=== PATIENT | male | born 1975 | race Caucasian/White ===

== ENCOUNTER 2019-01-07 09:55 | Emergency (ER) | payer OTHER, SELFPAY ==
[2019-01-07] VITALS (23 sets, daily range): BP systolic 121–151; BP diastolic 79–94; PULSE 83–95; RESP 11–18; TEMP 36.6; O2SAT 94–100
--- NOTE | 2019-01-07 09:58 | W.ED.GENAD ---
Discharge Plan Disposition Patient Disposition: HOME Condition: Good Discharge Details Chief Complaint: Chest Pain Clinical Impression: Acute epigastric pain, GERD without esophagitis Primary Care Provider: Ez Styles ED Provider: Mookie Lim Home Meds and New Rx's Prescriptions: New pantoprazole [Protonix] 40 mg tablet,delayed release (DR/EC) 40 mg PO DAILY Qty: 90 RF: 0 ranitidine HCl 150 mg tablet 150 mg PO DAILY Qty: 90 RF: 0 No Action acetaminophen [Tylenol] 325 MG tablet 1 tab PO PRN PRNRF: 0 lisinopril 2.5 MG tablet 1 tab PO DAILY RF: 0 Discharge Instructions Instructions: Gastroesophageal Reflux Disease (ED) Additional Instructions: Please avoid any tomato-based products, citrus-based products, or spicy foods. Please take the medication as directed if you notice any worsening of your symptoms, or any new symptoms such as vomiting, diarrhea, fever, chills, shortness of breath, chest pain, numbness, weakness, or fainting , please return immediately to the emergency department for reevaluation. Please follow up with your primary care provider as soon as possible for reassessment and reevaluation. As always, it was a pleasure participating in your medical care today. . Referrals: Ez Styles [Primary Care Provider] - Discharge Data Discharge Date/Time-TO BE ENTERED AT DEPARTURE: 01/07/19 12:05 Medical Decision Making This is a 43-year-old male with past medical history of mild reflux, who presents today for evaluation of left upper quadrant epigastric pain. Present since this morning. She tends to be no correlation with an exertional component, no pleuritic chest pain, no concerning red flags of radiation to the arms neck or shoulders. He has no actual chest pain either. He describes it as a burning sensation in his chest. Physical exam demonstrates minimal left upper quadrant reproducible tenderness. EKG is benign with no significant abnormalities. Patient was given a GI cocktail and had nearly almost immediate relief with the GI cocktail. With normal x-ray, normal troponin EKG, and otherwise benign workup, I feel the symptoms are clinically consistent with mild gastritis and reflux, and clinically inconsistent at this time with ACS. With no other clinical sign of life-threatening etiology at this time I feel he can be safely discharged home. We will start him on antacid medications at home. We discussed the importance of diet change. I have extensively reviewed the treatment plan and discharge instructions with the patient. I have addressed all patient concerns at this time. The patient was made aware of what symptoms to monitor for that would warrant a return to the emergency department. Discussed the plan with the patient, they demonstrate verbal understanding and agreement with our assessment and plan at this time. EKG 9: 56 Rate 93, intervals normal, sinus rhythm, inverted T wave in V1, no significant ST elevations or depressions, no Q waves, no evidence of STEMI. No epsilon or delta wave. Questionable RSR in V1. PA AND LATERAL CHEST: The heart is normal in size. The lungs are clear. The mediastinal structures and pleura appear intact. CONCLUSION: Normal chest. Ordered By: Mookie Lim DO CC: [facility] General Date/Time Provider Initiated Documentation: 01/07/19 09:57. HPI Narrative: This is a 43-year-old male with past medical history of hypertension, and reflux who presents today for evaluation of left upper epigastric pain. Patient states that the last day he has had mild burning in his left upper epigastrium, slightly worse with lifting moving, he denies any associated radiation to his chest, arms neck or shoulder. He did have chicken last night, and has been eating an increased amount of tomato-based products as of late. He denies any exertional component. He denies any vomiting or diarrhea. He denies any fever or chills. He denies any shortness of breath. He does have a familial cardiac history at older ages, he denies any tobacco abuse. He has no other complaints at this time. No other modifying factors. Related Data Home Medications Medication Instructions Recorded Confirmed acetaminophen [Tylenol] 1 tab PO PRN PRN 08/06/13 08/06/13 lisinopril 1 tab PO DAILY 08/06/13 08/06/13 pantoprazole [Protonix] 40 mg PO DAILY #90 tab 01/07/19 ranitidine HCl 150 mg PO DAILY #90 tab 01/07/19 Previous Rx's Medication Instructions Recorded pantoprazole [Protonix] 40 mg PO DAILY #90 tab 01/07/19 ranitidine HCl 150 mg PO DAILY #90 tab 01/07/19 Allergies Allergy/AdvReac Type Severity Reaction Status Date / Time Penicillins Allergy Intermediate Skin Rash Unverified 08/06/13 15:17 Sulfa (Sulfonamide Allergy Intermediate Skin Rash Unverified 08/06/13 15:17 Antibiotics) Review of Systems Review of Systems All systems reviewed & are unremarkable except as noted in HPI and below PFSH Social History Smoking/Tobacco Use Status: Never Drug use: Never Do you feel safe at home: Yes Do you feel safe in your relationship?: Yes Exam Narrative Exam Narrative: 1.Const: Well-nourished, Well-developed, appearing stated age 2.Eyes: PERRL, no conjunctival injection, and symmetrical lids. 3.ENT: Atraumatic external nose and ears. Moist MM. Neck: Symmetric, trachea midline, No thyromegaly. 4.CVS: +S1/S2, No murmurs or gallops. Peripheral pulses 2+ and equal in all extremities. Brisk capillary refill in all extremities. 5.RESP: Unlabored respiratory effort. Clear to auscultation bilaterally. No wheezes rales or rhonchi 6.GI: Soft, Nontender/Nondistended, No hepatosplenomegaly. No guarding or rebound. Mild reproducible left upper quadrant tenderness on palpation. 7.MSK: Normocephalic/Atraumatic, Extremities w/o deformity or ttp No cyanosis or clubbing, Normal movement of all extremities. Capillary refill, +2 pulses bilaterally. 8.Skin: Warm, Dry. No rashes or lesions. 9.Neuro: medical assistant cardiology II-XII grossly intact. Sensation grossly intact, no focal neurologic deficits. 10.Psych: (AAO) x3. Appropriate mood and affect
[2019-01-07] MEDS: Acetaminophen 500 MG TAB 1000 MG PO (10:09)
[2019-01-07] MEDS: Sucralfate 1 GM TAB PO (10:09)
[2019-01-07] MEDS: Normal Saline 1,000 ML 1000 ML IV (10:10)
[2019-01-07 10:13] LABS: Abs Immature Grans 0.02 k/cumm (0.0-0.09); Absolute Basophil Count 0.06 k/cumm (0.0-0.2); Absolute Eosinophil Count 0.39 k/cumm (0.0-0.7); Absolute Lymphocyte Count 2.61 k/cumm (1.2-3.4); Absolute Monocyte Count 0.83 k/cumm (0.11-0.7); Absolute Neutrophil Count 5.73 k/cumm (1.2-6.7); Basophils % 0.6; HCT 44.2 % (40.0-50.0); HGB 14.1 g/dL (13.5-17.5); Immature Grans % 0.2; Lymphocytes % 27.1; Mean Corp. HGB Concentration 31.9 g/dL (32.0-36.0); Mean Corpuscular Hemoglobin 29.7 pg (27.0-33.0); Mean Corpuscular Volume 93.1 fL (80-95); Mean Platelet Volume 12.5 fL (8.0-11.0); Monocytes % 8.6; Neutrophils % 59.5; Platelet Count 172 x1000/uL (130-400); RBC 4.75 m/cumm (4.50-6.00); RBC Distribution Width 14.4 % (11.8-14.1); White Blood Cell Count 9.64 k/cumm (4.4-10.8)
--- NOTE | 2019-01-07 10:26 | DI.RAD_ITS ---
SYMPTOMS/DIAGNOSIS: LUQ CHEST PAIN PA AND LATERAL CHEST: The heart is normal in size. The lungs are clear. The mediastinal structures and pleura appear intact. CONCLUSION: Normal chest.
[2019-01-07 10:27] LABS: ALT 30 U/L (12-78); AST 35 U/L (15-37); Albumin 3.8 g/dL (3.4-5.0); Alkaline Phosphatase 116 U/L (46-116); Anion Gap 7.6 mmol/L (3-11); BUN 15 mg/dL (7-18); Bilirubin, Total 1.3 mg/dL (0.2-1.0); CO2 31.4 mmol/L (21.0-32.0); Calcium 8.7 mg/dL (8.5-10.1); Chloride 100 mmol/L (98-107); Glucose 126 mg/dL (70-100); Lipase 107 U/L (73-393); Potassium 3.7 mmol/L (3.5-5.1); Sodium 139 mmol/L (136-145)
[2019-01-07 10:32] LABS: Troponin I < 0.02 ng/mL (0.00-0.06)
== END 2019-01-07 12:05 | disposition home or self-care (01) ==
PROVIDERS: Emergency Provider Student in an Organized Health Care Education/Training Program; PCP Family Medicine
DX: R10.13 Epigastric pain (principal); K21.9 Gastro-esophageal reflux disease without esophagitis
CPT/HCPCS: 36415; 80053; 83690; 93005; 96360; 99285; 71046; 84484; 85025; 93010

== ENCOUNTER 2019-06-29 09:22 | Emergency (ER) | payer OTHER, SELFPAY ==
[2019-06-29 09:26] VITALS: BP 156/80; PULSE 98; RESP 16; TEMP 37; O2SAT 97
--- NOTE | 2019-06-29 09:37 | ED.GENADUL_ITS ---
Discharge Plan Disposition Patient Disposition: HOME Condition: Stable Discharge Details Chief Complaint: Nk/Back Pain Clinical Impression: Lumbar strain Primary Care Provider: Ez Styles ED Provider: Shaquille Martinez Home Meds and New Rx's Prescriptions: Continued acetaminophen [Tylenol] 325 MG tablet 1 tab PO PRN PRNRF: 0 lisinopril 2.5 MG tablet 1 tab PO DAILY RF: 0 Discharge Instructions Instructions: Low Back Strain (ED) Additional Instructions: you can take 1000mg tylenol and 600mg ibuprofen every 6 hours for pain as needed if not better in 1-2 weeks follow up with your primary care provider if you have high fevers, difficulty urinating or new pain such as abdominal pain return to the emergency department Stand Alone Forms: Physical Therapy Referral, Work Release Medical Decision Making 44 yo male with hx of htn, no smoking/drinking/drug use per pt, comes in with lower back pain since yesterday. He has been doing a lot of heavy lifting per pt at work and denies any trauma or falls. Denies fevers, difficulty urinating or having bowel movements. He has no abdominal tenderness on exam, normal gait, normal motor and sensation of the legs with 2+ dp/pt pulses. No saddle anesthesia, no findings on hx or physical exam to suggest cauda equina or sea. He has pain throughout the lumbar region with normal rom. I suspect lumbar strain, less likely disc herniation. will have him start nsaids, tylenol and PT, and advised if not better to see pcp with return precautions Differential Diagnosis Differential Diagnosis: lumbar strain, muscle spasm, disc herniation HPI General Mode of arrival: ambulatory . Date/Time Provider Initiated Documentation: 06/29/19 09:26 . Limitations to Documentation: no limitations . Information obtained by: patient . History of Present Illness 44 year old M presents to the emergency department with the chief complaint of low back pain, described as moderate, Patient started experiencing this day(s) (1) and it has been constant. No relieving factors improve symptom(s), No exacerbating factors reported . Patient did receive the following treatments prior to arrival, none Related Data Home Medications Medication Instructions Recorded Confirmed acetaminophen [Tylenol] 1 tab PO PRN PRN 08/06/13 06/29/19 lisinopril 1 tab PO DAILY 08/06/13 06/29/19 Allergies Allergy/AdvReac Type Severity Reaction Status Date / Time Penicillins Allergy Intermediate Skin Rash Unverified 06/29/19 09:30 Sulfa (Sulfonamide Allergy Intermediate Skin Rash Unverified 06/29/19 09:30 Antibiotics) General Stated Complaint: Nk/Back Pain ALESHA: 4 Review of Systems Review of Systems ROS Unobtainable: All systems reviewed & are unremarkable except as noted in HPI and below Constitutional Constitutional: Denies chills, Denies fever(s) and Denies weakness Cardiovascular Cardiovascular: Denies dyspnea Respiratory Respiratory: Denies cough and Denies dyspnea Gastrointestinal Gastrointestinal: Denies abdominal pain, Denies nausea and Denies vomiting Musculoskeletal Musculoskeletal: Denies joint swelling Neurologic Neurologic: Denies weakness PFSH Social History Smoking/Tobacco Use Status: Never Alcohol Intake: never Drug use: Never Substance use type: does not use Do you feel safe at home: Yes Do you feel safe in your relationship?: Yes Exam Const General: no acute distress Orientation: alert HENMT Head: normal to inspection Ears: external ears normal General nose exam: external nose normal Mouth: moist mucous membranes Eyes General: appearance normal, both eyes and all related structures Neck Neck: normal visual inspection Resp Effort & Inspection: normal respiratory effort and able to speak in complete sentences Cardio Rate: regular rate Back/Spine/Pelvis Back: no CVA tenderness Skin General skin exam: no rashes or lesions noted Neuro General: alert and oriented x3 Extrem General: normal to inspection Psych Mental Status: mental status grossly normal Course Vital Signs Vital signs: Vital Signs Temperature 37 C 06/29/19 09:26 Pulse 98 H 06/29/19 09:26 Respiratory Rate 16 06/29/19 09:26 Blood Pressure 156/80 H 06/29/19 09:26 Pulse Oximetry 97 06/29/19 09:26 Temperature 37 C 06/29/19 09:26 Temperature Source Skin 06/29/19 09:26 Pulse 98 H 06/29/19 09:26 Respiratory Rate 16 06/29/19 09:26 Respiratory Effort Non-Labored 06/29/19 09:26 Blood Pressure 156/80 H 06/29/19 09:26 Blood Pressure Position Sitting 06/29/19 09:26 Pulse Oximetry 97 06/29/19 09:26 Oxygen Delivery Method Room Air 06/29/19 09:26 Oxygen Flow Rate 0 06/29/19 09:26 Pain Level 6 06/29/19 09:31
[2019-06-29] MEDS: Ibuprofen 600 MG TAB (09:40)
== END 2019-06-29 09:46 | disposition home or self-care (01) ==
LOC: ER 09:38
PROVIDERS: Emergency Provider Emergency Medicine; PCP Family Medicine
DX: S39.012A Strain of muscle, fascia and tendon of lower back, initial encounter (principal); X50.0XXA Overexertion from strenuous movement or load, initial encounter; I10 Essential (primary) hypertension
CPT/HCPCS: 99282

== ENCOUNTER 2019-07-29 12:18 | Outpatient (REF) | payer OTHER, SELFPAY ==
[2019-07-29 19:46] LABS: HCT 42.7 % (40.0-50.0); HGB 13.9 g/dL (13.5-17.5); Mean Corp. HGB Concentration 32.6 g/dL (32.0-36.0); Mean Corpuscular Hemoglobin 30.7 pg (27.0-33.0); Mean Corpuscular Volume 94.3 fL (80-95); Mean Platelet Volume 13.5 fL (8.0-11.0); Platelet Count 180 x1000/uL (130-400); RBC 4.53 m/cumm (4.50-6.00); RBC Distribution Width 13.6 % (11.8-14.1); White Blood Cell Count 9.27 k/cumm (4.4-10.8)
[2019-07-29 20:08] LABS: Anion Gap 9.8 mmol/L (3-11); BUN 19 mg/dL (7-18); CO2 28.2 mmol/L (21.0-32.0); CREATININE 1.16 mg/dL (0.70-1.30); Calcium 9.1 mg/dL (8.5-10.1); Chloride 101 mmol/L (98-107); Glucose 97 mg/dL (70-100); Sodium 139 mmol/L (136-145); TSH (W/Ref FT4) 1.85 uIU/mL (0.36-3.74)
[2019-07-29 20:09] LABS: COMMENT (LAB VIEW ONLY) 194.25 mg/dL; Microalb ug/mg Crea 5.4 ug/mg Cr
== END 2019-07-29 12:38 ==
LOC: NCHCN 12:18
PROVIDERS: PCP Nurse Practitioner Family; Visit Provider Nurse Practitioner Family
DX: I10 Essential (primary) hypertension (principal); R53.83 Other fatigue
CPT/HCPCS: 80048; 85027; 82043; 82570; 84443

== ENCOUNTER 2019-08-23 05:08 | Inpatient (IN) | payer OTHER, MEDICAID, SELFPAY ==
[2019-08-23] VITALS (128 sets, daily range): BP systolic 54–135; BP diastolic 26–89; PULSE 62–104; RESP 12–23; TEMP 36.6–38.1; O2SAT 18–100
--- NOTE | 2019-08-23 05:40 | ED.GENADUL_ITS ---
Discharge Plan Disposition Patient Disposition: [facility] INPATIENT Condition: Poor Discharge Details Chief Complaint: Nausea/Vomit/Diar Clinical Impression: Incarcerated ventral hernia, SBO (small bowel obstruction) Primary Care Provider: Jhonny Causey ED Provider: Murphy Singh [place] Meds and New Rx's Prescriptions: No Action lisinopril-hydrochlorothiazide 20-25 mg tablet 1 tab PO DAILY RF: 0 Medical Decision Making Patient presenting with complaint of persistent vomiting over the last 2 to 3 days. Has had prior abdominal surgery. Has a ventral wall hernia that is like ly incarcerated. Suspect bowel obstruction. Will keep patient n.p.o. IV fluids started. Laboratory studies ordered. CT scan of the abdomen pelvis ordered. Laboratory studies significant for an elevated white count of almost 20,000. Otherwise labs mostly unremarkable. Lactic acid 1.6. CT scan confirms incarcerated abdominal wall hernia with small bowel obstruction. Case discussed with Dr. Paris from surgery. Patient seen and evaluated by her. Patient will be taken to the OR directly from the ED. Lab Data Lab results reviewed: Yes I reviewed the patient's lab results. ECG Data Attestation: I personally reviewed and interpreted this ECG (s) as follows: Prior ECG tracings: available for review Interpretation: Normal sinus rhythm at 99. Normal axis and intervals. Normal ST segments. HPI General Mode of arrival: EMS . Date/Time Provider Initiated Documentation: 08/23/19 05:40 . Limitations to Documentation: no limitations . Information obtained by: patient and RN notes reviewed . HPI Narrative: Patient presents to ED with complaint of nausea and vomiting since Thursday evening. He denies having any significant abdominal pain though admits to cramping at times. He has had no diarrhea. He has had no fever. He has been unable to keep anything down including water. He eventually was unable to tolerate the vomiting any longer and called EMS. An IV was established and he was given a fluid bolus as well as Zofran ODT. He has still been making urine. He denies chest pain or shortness of breath. He has had previous abdominal surgery, exploratory laparotomy for ruptured appendix. Related Data Home Medications Medication Instructions Recorded Confirmed lisinopril-hydrochlorothiazide 1 tab PO DAILY 08/23/19 08/23/19 Allergies Allergy/AdvReac Type Severity Reaction Status Date / Time Penicillins Allergy Intermediate Skin Rash Verified 07/25/19 11:41 Sulfa (Sulfonamide Allergy Intermediate Skin Rash Verified 07/25/19 11:41 Antibiotics) General Stated Complaint: Nausea/Vomit/Diar ALESHA: 3 Review of Systems Narrative: 07/18 Review of Systems completed and is negative except as stated above in HPI (Systems reviewed: Const, Eyes, ENT, Resp, CV, GI, , MSK, Skin, Neuro) [facility] Medical History GERD without esophagitis (Chronic) Hernia of abdominal wall (Chronic) Hypertension (Chronic) Surgical History S/P appendectomy (Acute) S/P exploratory laparotomy (Acute) Social History Smoking/Tobacco Use Status: Never Alcohol Intake: never Drug use: Never Substance use type: does not use Household members: significant other and children Do you feel safe at home: Yes Do you feel safe in your relationship?: Yes Exam Narrative Exam Narrative: Vitals: Afebrile. Normal vital signs and normal room air saturation. Const: WDWN male in NAD. HEENT: NC/AT. Normal facial exam. Eyes: Normal conjunctiva and sclera. Neck: Supple. Trachea midline. Lungs: Normal respiratory effort. Lungs are clear. Cor: RRR without murmur/gallop. Good radial pulses. GI: Soft but distended. Firm, tender, non-reducible hernia left of incision. Neuro: A+O x 3. CN grossly in tact. Good strength and no focal deficit. Ext: No C/C/E. No deformity or tenderness. Skin: Warm and dry without rash. Course Vital Signs Vital signs: Vital Signs Temperature 99.0 F 08/23/19 05:18 Pulse 94 H 08/23/19 05:18 Respiratory Rate 16 08/23/19 05:18 Blood Pressure 135/89 08/23/19 05:18 Pulse Oximetry 96 08/23/19 05:18 Temperature 99.0 F 08/23/19 05:18 Temperature Source Skin 08/23/19 05:18 Pulse 94 H 08/23/19 05:18 Respiratory Rate 16 08/23/19 05:18 Blood Pressure 135/89 08/23/19 05:18 Blood Pressure Position Sitting 08/23/19 05:18 Pulse Oximetry 96 08/23/19 05:18 Oxygen Delivery Method Room Air 08/23/19 05:18 Oxygen Flow Rate 0 08/23/19 05:18
--- NOTE | 2019-08-23 05:45 | DI.CT_ITS ---
EXAM: CT ABDOMEN PELVIS W CLINICAL HISTORY: vomiting/abdominal hernia TECHNIQUE: Post 125 cc of Omnipaque 350 IV. COMPARISON: SINUS CT WITHOUT CONTRAST from 07/21/2012 FINDINGS: There is a small left pleural effusion. The liver shows fatty infiltration. The gallbladder is paula ewhat contracted. The spleen, pancreas, adrenals and kidneys are unremarkable. There is a hernia ne ar the level of the umbilicus which contains a loop of small bowel. There is some fluid within the h ernia sac and a caliber change of the bowel, consistent with obstruction. There is no evidence of pn eumatosis. Patient is status post appendectomy. There are small bilateral fatty containing inguinal hernias. The prostate and bladder are unremarkable. The colon shows diverticulosis at the descendi ng and sigmoid. There is small amount of free fluid posteriorly in the pelvis. IMPRESSION: High-grade small bowel obstruction at the level of a paraumbilical hernia which appears incarcerated.
[2019-08-23 06:02] LABS: Lactate 1.6 mmol/L (0.6-1.4)
[2019-08-23 06:06] LABS: Abs Immature Grans 0.06 k/cumm (0.0-0.09); Absolute Basophil Count 0.02 k/cumm (0.0-0.2); Absolute Lymphocyte Count 1.54 k/cumm (1.2-3.4); Basophils % 0.1; Eosinophils % 0.1; HGB 15.1 g/dL (13.5-17.5); Immature Grans % 0.3; Lymphocytes % 7.8; Mean Corp. HGB Concentration 34.3 g/dL (32.0-36.0); Mean Corpuscular Hemoglobin 31.5 pg (27.0-33.0); Mean Corpuscular Volume 91.9 fL (80-95); Mean Platelet Volume 12.4 fL (8.0-11.0); Monocytes % 8.8; Neutrophils % 82.9; Platelet Count 185 x1000/uL (130-400); RBC 4.79 m/cumm (4.50-6.00); RBC Distribution Width 13.4 % (11.8-14.1); White Blood Cell Count 19.73 k/cumm (4.4-10.8)
[2019-08-23 06:07] LABS: Absolute Eosinophil Count 0.02 k/cumm (0.0-0.7); Absolute Monocyte Count 1.74 k/cumm (0.11-0.7); Absolute Neutrophil Count 16.36 k/cumm (1.2-6.7)
[2019-08-23 06:21] LABS: ALT 27 U/L (16-63); AST 26 U/L (15-37); Albumin 3.2 g/dL (3.4-5.0); Alkaline Phosphatase 102 U/L (46-116); Anion Gap 10.3 mmol/L (3-11); BUN 20 mg/dL (7-18); CO2 28.7 mmol/L (21.0-32.0); Calcium 8.2 mg/dL (8.5-10.1); Chloride 97 mmol/L (98-107); Glucose 137 mg/dL (70-100); Lipase 57 U/L (73-393); Potassium 3.5 mmol/L (3.5-5.1); Sodium 136 mmol/L (136-145); Total Protein 6.9 g/dL (6.4-8.2)
[2019-08-23] MEDS: Omnipaque 350 MG/ML 100 ML BTL IJ (06:34)
[2019-08-23] MEDS: Omnipaque 350 MG/ML 50 ML BTL IJ (06:43)
--- NOTE | 2019-08-23 07:02 | DI.VRAD_ITS ---
Addendum created by Richard Diez MD on 08/23/2019 7:08:35 AM EST DANG CAROLYN reported at 08/23/2019 7:08 AM EST that the report has been received and the findings are understood. Initial report created on 08/23/2019 7:01:50 AM EST PROCEDURE INFORMATION: Exam: CT Abdomen And Pelvis With Contrast Exam date and time: 08/23/2019 5:47 AM Clinical history: 44 years old, male; Nausea and vomiting; Abdominal pain; Generalized; Prior surgery; Surgery date: 6+ months; Surgery type: Hernia repair and appendix removed; Patient HX: Vomiting since Thursday and pain around hernia TECHNIQUE: Imaging protocol: Computed tomography of the abdomen and pelvis with intravenous contrast. Radiation optimization: All CT scans at this facility use at least one of these dose optimization techniques: automated exposure control; mA and/or kV adjustment per patient size (includes targeted exams where dose is matched to clinical indication); or iterative reconstruction. Contrast material: OMNIPAQUE 350; Contrast volume: 125 ml; Contrast route: IV; COMPARISON: No relevant prior studies available. FINDINGS: Lungs: Bibasilar dependent and subsegmental atelectasis. Pleural space: Small left pleural effusion. Trace right effusion. Liver: Hepatomegaly. Fatty Infiltration. Gallbladder and bile ducts: Contracted without gallstones, wall thickening or other findings of acute cholecystitis. Biliary tract nondilated. Pancreas: No enlargement. No mass. No ductal dilatation. Spleen: Normal size. No mass. Adrenals: No mass. No enlargement. No hemorrhage. Kidneys and ureters: No hydronephrosis. Subcentimeter cortical cysts bilaterally. No hydroureter or ureterolithiasis. Stomach and bowel: Mild diverticulosis without acute diverticulitis. High-grade partial small bowel obstruction with fluid filled distended loops of small bowel measuring up to 4.6 CM diameter. Obstruction with incarceration/strangulation of a anastasiya-umbilical hernia containing small bowel and adipose tissue. Wall thickening with adjacent infiltration and fluid. No pneumatosis. Decompressed distal small bowel. Appendix: Status post appendectomy. Intraperitoneal space: Tiny amount of perihepatic ascites. Small amount of free fluid in the pelvis. Mesenteric infiltration/edema associated with bowel obstruction. No free intraperitoneal air demonstrated. Vasculature: Aorta normal caliber without aneurysm, dissection or disruption. Lymph nodes: No significant lymphadenopathy demonstrated. Bladder: No wall thickening, mass or calculus. Reproductive: Prostate is normal size. Bones/joints: Moderate degenerative changes noted throughout the spine. Soft tissues: Small uncomplicated bilateral fat containing inguinal hernias. Loculated anastasiya-umbilical hernia containing loop of small bowel and mesenteric adipose tissue. High-grade obstruction with evidence of incarceration/strangulation. Small amount of fluid and adjacent infiltration IMPRESSION: 1. High-grade partial small bowel obstruction secondary to periumbilical hernia with incarceration/strangulation. No pneumatosis or free air. 2. Additional nonemergent findings as described above. Dictated and Authenticated by: Richard Diez MD. Ordering:BROOKS Arrington MD
--- NOTE | 2019-08-23 07:05 | NUR.NOTE ---
Nursing Note:Pt retuned from CT scan without incident. Tolerated procedure well. At this time, CT shows an incarcerated abdominal hernia. Pt notified that he will be seen by a surgeon and will need to go to the OR today. Pt calm, and kept NPO.
--- NOTE | 2019-08-23 07:07 | NUR.NOTE ---
Nursing Note:Report given to Jason WOLF. No further patient contact.
[2019-08-23] MEDS: Lactated Ringers 1,000 ML 125 ML IV ×4 (07:10→16:24)
--- NOTE | 2019-08-23 07:17 | W.PM.HP.N ---
Date of service: 08/23/19 Time of Service: 07:18 Assessment and Plan Assessment and plan (1) Incarcerated incisional hernia: Status: Acute Assessment and plan: A\\ Incarcerated incisional hernia P\\ Exploratory laparotomy with possible bowel resection, possible primary repair vs repair with mesh Risks, benefits and complications have been reviewed with the patient. Complications include but are not limited to bleeding, infection, anastamotic leak, intra-abdominal abscess, recurrent hernia, [place], . Questions were entertained and answered to his statisfaction and he wished to proceed. No guarantees were given or implied. I discuss an epidural with the patient for pain control. Discussed that he may have an NG in place when he wakes up as well as a Pierre catheter. History of Present Illness History of Present Illness Chief Complaint: Incarcerated hernia Consults Consult date: 08/23/19 Requesting physician: Murphy Singh Narrative: Mr. Mroeira is a pleasant 44 year old male who has a history of ruptured appendix requiereing exploratory laparotomy. He then developed an incisional hernia that he has not had repaired. He started to develop N/V about 2 days ago and noted the hernia become hard. He comes in today with a WBC count of 19,[address] scan with high grade obstruction due to bowel within the hernia. NO pneumoperitoneum noted. NO bowel wall edema or air. Bowel tracks under the skin to the left of midline. Review of Systems Constitutional Constitutional: Denies fatigue and Denies fever(s) Cardiovascular Cardiovascular: Denies chest pain, Denies chest pain at rest, Denies rapid heart rate, Denies irregular heart rhythm, Denies palpitations, Denies dyspnea and Denies dyspnea on exertion Respiratory Respiratory: Denies chest congestion, Denies cough, Denies dyspnea and Denies dyspnea on exertion Gastrointestinal Gastrointestinal: Reports as per HPI Genitourinary Genitourinary: Denies hematuria and Denies dysuria Musculoskeletal Musculoskeletal: Reports system reviewed and no additional complaints, except as docu Neurologic Neurologic: Reports system reviewed and no additional complaints, except as docu Psychiatric Psychiatric: Reports system reviewed and no additional complaints, except as docu Endocrine Endocrine: Reports system reviewed and no additional complaints, except as docu, Denies fatigue and Denies palpitations Hematologic/Lymphatic Hematologic/Lymphatic: Denies easy bleeding, Denies easy bruising and Denies lymphadenopathy [facility] Medical History GERD without esophagitis (Chronic) Hernia of abdominal wall (Chronic) Hypertension (Chronic) Surgical History S/P appendectomy (Acute) S/P exploratory laparotomy (Acute) Social History Smoking/Tobacco Use Status: Never Alcohol Intake: never Drug use: Never Substance use type: does not use Household members: significant other and children Do you feel safe at home: Yes Do you feel safe in your relationship?: Yes Meds Home Medications and Allergies Home Medications Medication Instructions Recorded Confirmed Type lisinopril-hydrochlorothiazide 1 tab PO DAILY 08/23/19 08/23/19 History Allergies Allergy/AdvReac Type Severity Reaction Status Date / Time Penicillins Allergy Intermediate Skin Rash Verified 07/25/19 11:41 Sulfa (Sulfonamide Allergy Intermediate Skin Rash Verified 07/25/19 11:41 Antibiotics) Exam Const General: cooperative and no acute distress Orientation: alert and oriented x3 HENMT Head: normocephalic and atraumatic Resp Effort & Inspection: normal respiratory effort Auscultation: clear to auscultation bilaterally Cardio Rate: regular rate Rhythm: regular rhythm Heart Sounds: no gallops, no murmurs and no rubs GI Inspection: incision Palpation: soft, no hepatosplenomegaly, hernia (visible hernia with some hai erythema) and tender (over hernia) Auscultation: normoactive bowel sounds Results Labs Result diagrams: 08/23/19 05:45 08/23/19 05:45 Labs: Laboratory Results - last 24 hr 08/23/19 08/23/19 08/23/19 05:45 05:45 05:45 WBC 19.73 H RBC 4.79 Hgb 15.1 Hct 44.0 MCV 91.9 MCH 31.5 MCHC 34.3 RDW 13.4 Plt Count 185 MPV 12.4 H Immature Gran % 0.3 Neutrophils % 82.9 Lymphocytes % 7.8 Monocytes % 8.8 Eosinophils % 0.1 Basophils % 0.1 Absolute Neutrophils 16.36 H Absolute Lymphocytes 1.54 Absolute Monocytes 1.74 H Absolute Eosinophils 0.02 Absolute Basophils 0.02 Sodium 136 Potassium 3.5 Chloride 97 L Carbon Dioxide 28.7 Anion Gap 10.3 BUN 20 H Creatinine 1.20 Estimated GFR/1.73 m2 >= 60.00 Glucose 137 H Lactate 1.6 H Calcium 8.2 L Total Bilirubin 2.0 H AST 26 ALT 27 Alkaline Phosphatase 102 Total Protein 6.9 Albumin 3.2 L Lipase 57 L Last Vital Signs Temp 99.0 F 08/23/19 05:18 Pulse 96 H 08/23/19 06:15 Resp 19 08/23/19 06:20 BP 115/69 08/23/19 06:15 Pulse Ox 89 L 08/23/19 06:20
[2019-08-23] MEDS: CIPROFLOXACIN 400 MG/200 ML BAG 200 MG IVPB ×2 (08:12→21:45)
[2019-08-23] MEDS: fentaNYL 100 MCG/2 ML VIAL (08:25)
[2019-08-23] MEDS: Bupivacaine 0.5% Pres-Free 30 ML VIAL (08:25)
[2019-08-23] MEDS: Lactated Ringers 1,000 ML 30 ML IV (08:40)
[2019-08-23] MEDS: metroNIDAZOLE 500 MG/100 ML BAG 100 MG IVPB ×2 (08:42→16:15)
[2019-08-23] MEDS: Lidocaine 2% Multi-Dose 50 ML VIAL (08:42)
--- NOTE | 2019-08-23 09:25 | BOWEL_PTH ---
PATIENT: Cristi Barillas LOC: ICU U#:[id number] AGE/SX: 44/M ROOM: ICU.220 RE08/23/[address]: Angeli Paris MD : [id number] BED: A DIS: 08/25/2019 SPEC #: [id number] RECD: 08/23/19 12:34 STATUS: KELLY REQ #: [id number] MARYBEL: 08/23/19 09:[address]: Angeli Paris DEPT: Surgical Specimen RECD BY: Paige Wilson ENTERED: 08/23/19 12:36 SP TYPE: Bowel OTHR DR: Jhonny Causey Tissues: 1 - BOWEL RESECTION(OTHER) Procedures: GROSS AND MICRO LEVEL 5 Comments: [id number]
[2019-08-23] MEDS: FentaNYL/ROPIvacaine 2 mcg/ml and 0.1% 200 ML CADD Cassette EP (13:10)
[2019-08-23] MEDS: Lactated Ringers 1,000 ML 1000 ML IV ×3 (16:03→19:05)
[2019-08-23] MEDS: Ketorolac 30 MG/ML VIAL IVP ×2 (16:15→22:35)
[2019-08-23] MEDS: ACETAMINOPHEN 1,000 MG/100 ML BTL 400 MG IVPB ×2 (16:16→22:33)
--- NOTE | 2019-08-23 16:57 | ROE_ITS ---
Date of service: 08/23/19 Time of Service: 07:30 Operative Note Operative Note DATE OF PROCEDURE: 08/23/19 PRE-OP DIAGNOSIS: Incarcerated incisional hernia POST-OP DIAGNOSIS: other (Starngulated incisional hernia) PROCEDURE: Exploratory Laparotomy with reduction of hernia Small bowel resection with anastamosis Primary repair of hernia defects SURGEON: Angeli Paris LEAF COVERER: Meghna Mauricio ANESTHESIA: GETA (Sherie Arboleda, SENIOR ENVIRONMENTAL SCIENTIST/ ASA 2A) and epidural ESTIMATED BLOOD LOSS: 100 PATHOLOGY: other (Small bowel 36 cm) COMPLICATIONS: None Patient was transported to: PACU Patient's condition: critical Indications: Mr. Barillas is a pleasant 44 year old male seen in the ER this am with an incarcerated incisional hernia. Patient had a high grade obstruction on CT scan. he had been sick for at least 2 days. Exploratory laparotomy with reduction of hernia and possible bowel resection was discussed with the patient. Risks, benefits and complications off bleeding, pain, infection, anastamotic leak, intra-abdominal abscess, injury to bowel and stomach, MD, Stroke and were reviewed. Questions were entertained and answered to his satisfaction and he wished to proceed. No guarantees were given or implied. Findings: Small bowel that looked thickened and congested with areas suspicious for necrosis. Procedure Description: After informed consent was obtained the patient was taken to the operating room and an epidural was placed by anesthesia. Once in place the patient was placed in a supine position on the table. He was placed under general anesthesia and intubated without complication. SCD's were applied prior to being placed under general anesthesia. Once asleep and intubated a Pierre catheter was placed in a standard fashion. His abdominal hair was then clipped. His abdomen was then prepped and draped in a standard fashion. At thi s point a time out was done. The patient's name, , allergies to medications, DVT prophilaxis, antibiotics given, Pre-operative diagnoses and procedure to be done were reviewed. Fire risk was assessed. Next 2% Lidocaine was injected along his old midline incision. An incision was made with a 10 blade. Dissection was taken down carefully at the most superior portion of his incision with hemostats and cautery until I got to the fascia. The fascia was scored and the peritoneum was entered bluntly. Adhesions were identified from his transverse colon to the peritoneum and taken down with scissors and cautery. Small bowel was noted in a hernia just below the umbilicus. The bowel was gently dissected away from the peritoneum using scissors and cuatery. Once released from the peritoneum it was gently pulled out of the hernia sac. The bowel was dilated, thick, and dark purple. The bowel proximal was dilated. The bowel distal was decompressed. Using a hemostat a small window was made under the bowel wall 1 inch proximal to the thickened bowel. Using a straight 80 mm linear stapler the bowel was transected. The same thing was done 1 inch distal to the thickened bowel. The mesentery was then transected using a ligasure. The resected bowel measured 36 cm. The specimen was marked with a suture on the proximal end and removed from the operating table and placed in formalin. The fluid was milked from the small bowel towards the stomach to be removed by the NG. The 2 bowel ends were then attached side to side and secured with silk suture. A small enterotomy was made in both ends and using the linear stapler a side to side anastamosis was created. The enterotomy was then closed in 2 layers with 4-0 vicryl and 2-0 silk. The mesenteric defect was closed with 2-0 Vicryl running sutures. Next the small bowel was run from the ligament of treitz to the cecum. No other areas of ischemia were identified. No serosal tears or enterotomies were noted. The small bowel was placed back into the abdomen and the abdomen was irrigated with 2 L of warm NS. Once all the fluid was suctioned out the liver was palpated. The liver felt smooth. No lesions were palpated. The stomach was then palpated and the tip of the NG was noted just past the GE junction. I asked anesthesia to advance it until it was in the mid stomach. The NG was then secured by anesthesia to his Nose. Next the fascial defects were closed primarily with 1-0 Vicryl suture. The subcutaneous tissue was dissected away from the fascia with cuatery in order to better identify all the defects and close them. 2 hernia sacs were identified with omentum in it. The omentum was resected and removed. A sponge, instrument and needle count was done and was correct at this point and the fascia was re-approximated using three 1-0 Vicryl running sutures. The subcutaneus tissue was irrigated and a wound vac was then placed. The wound measured 21 cm long x 5 cm wide x 2.5 cm deep. There were 3 cm of undermining on both sides. Instruments, sponge and needle counts were correct at the end of the case. The patients abdomen was cleaned and dried. He was then woken up, extubated and taken back to PACU in stable but critical condition. Patient did need to be on levophed throughout the case. he was weaned off in PACU.
[2019-08-23 18:26] LABS: BE 6.7 mmol/L (-3-3); HCO3 31 mmol/L (22-28); pCO2 42 mmHg (34-47); pH 7.47 (7.35-7.45); pO2 45 mmHg (83-108); sO2 83 % (94-98); tCO2 27 mmol/L (22-29)
[2019-08-23 18:28] LABS: FIO2 21 %; Site Right Radial
--- NOTE | 2019-08-23 19:16 | PDOC.ANES ---
Date of service: 08/23/19 Time of Service: 16:16 Anesthesia Note Report Anesthesia Note: Called to assess epidural catheter/infusion. FREELANCE GRAPHIC DESIGNER at bedside concerned for epidural adverse event. She reports patient was in bed with epidural infusing and became suddenly diaphoretic and hypotensive. She stopped the epidural, elevated patient legs and talked to Dr. Paris who ordered a fluid bolus. Upon my entering the room, patient is awake, conversive with low normal blood pressure. He is no longer diaphoretic and states he feels better. He is not nauseated and complains of a 2/10 abdominal discomfort. Discussed with Dr. Paris and RN and plan is to maintain epidural infusion at a rate of 8ml/hour as well as PCEA bolus of 3ml for more than tolerable pain. Hypotension will be treated with vasopressor therapy. This is in an effort to continue to control his pain and ideally eliminate the need for narcotic analgesia while in the acute phase of recovery which could slow his progress. The patient was also educated on the use of his PCEA and understands.
[2019-08-23] MEDS: Enoxaparin 40 MG/0.4 ML SYR SC (21:44)
[2019-08-24] VITALS (144 sets, daily range): BP systolic 72–123; BP diastolic 51–76; PULSE 58–156; RESP 12–29; TEMP 36.2–36.8; O2SAT 84–100
[2019-08-24] MEDS: ACETAMINOPHEN 1,000 MG/100 ML BTL 400 MG IVPB ×4 (04:23→21:56)
[2019-08-24] MEDS: Ketorolac 30 MG/ML VIAL IVP ×4 (04:24→21:56)
--- NOTE | 2019-08-24 05:49 | NUR.NOTE ---
Norepinephrine weaned to off by this am. BP holding at 120/54.Nursing Note:
[2019-08-24] MEDS: Lactated Ringers 1,000 ML 250 ML IV (06:41)
[2019-08-24 07:04] LABS: Abs Immature Grans 0.05 k/cumm (0.0-0.09); Absolute Eosinophil Count 0.01 k/cumm (0.0-0.7); Absolute Lymphocyte Count 1.36 k/cumm (1.2-3.4); Basophils % 0.1; Eosinophils % 0.1; HCT 36.4 % (40.0-50.0); HGB 11.6 g/dL (13.5-17.5); Immature Grans % 0.3; Lymphocytes % 9.5; Mean Corp. HGB Concentration 31.9 g/dL (32.0-36.0); Mean Corpuscular Hemoglobin 30.2 pg (27.0-33.0); Mean Corpuscular Volume 94.8 fL (80-95); Mean Platelet Volume 12.8 fL (8.0-11.0); Monocytes % 13.4; Neutrophils % 76.6; Platelet Count 141 x1000/uL (130-400); RBC 3.84 m/cumm (4.50-6.00); RBC Distribution Width 13.6 % (11.8-14.1); White Blood Cell Count 14.29 k/cumm (4.4-10.8)
[2019-08-24 07:07] LABS: Absolute Basophil Count 0.01 k/cumm (0.0-0.2); Absolute Monocyte Count 1.91 k/cumm (0.11-0.7); Absolute Neutrophil Count 10.95 k/cumm (1.2-6.7)
[2019-08-24 07:20] LABS: Anion Gap 7.4 mmol/L (3-11); BUN 21 mg/dL (7-18); CO2 30.6 mmol/L (21.0-32.0); CREATININE 1.26 mg/dL (0.70-1.30); Calcium 7.1 mg/dL (8.5-10.1); Chloride 102 mmol/L (98-107); Glucose 128 mg/dL (74-106); Magnesium 1.5 mg/dL (1.8-2.4); Potassium 3.5 mmol/L (3.5-5.1); Sodium 140 mmol/L (136-145)
[2019-08-24 07:27] LABS: Diff Comment Agrees w/ Instrument; RBC Morphology Normal
--- NOTE | 2019-08-24 08:24 | PGE_ITS ---
Date of Service Date of service: 08/24/19 Time of Service: 08:24 Assessment and Plan Assessment and plan (1) Incarcerated incisional hernia: Status: Acute Assessment and plan: Daily progress notes hosp Plan: Encourage ambulation- prob up in a chair today and pulmonary toilet Continue local wound care- wound VAC Pain control measures are effective Risk vs benefits of narcotics are reviewed with the patient as well. diet sips/chips epidural- per RECORDS AND TAPE RECORDINGS ENGINEER's abx: cipro & flagyl GI: pepcid (hx of GERD) I reviewed with the pt the prognosis and today's findings. Continue current treatment regimen and supportive care. I reviewed all these findings with Dr. Baptiste Interval History: Doing well. Continues to improve. Pain is well-controlled. No fevers. The pt's diet is sips/chips. The pt is having no nausea or vomiting. The pt has no chest pain, SOB, productive cough. There has no leg pain or swelling. The pt is not up walking around. He has an epidural in place and is able to move foot. Yest he had a vaso-vagel episode and is very nervous about getting up today. Pt has been doing IS. Pt is not passing gas. We reviewed the findings from recent ex lap and bowel resection. expectations and prognosis and recovery. All questions answered to pt satisfaction. Consideration of consulting Physical therapy, occupational therapy, respiratory therapy, social media strategist, wound care, Pharmacy was given and appropriate consults ordered for patient care. All labs, radiological & adjuvant studies, cultures and available path reports have been reviewed. Medications and treatment regimen have been adjusted appropriately. Medications:reviewed Review of Systems CONSTITUTIONAL: No fever, chills, weight loss, fatigue, or malaise. SKIN: No rashes, ecchymosis, open sores or breakdown. EYES: No visual changes or eye pain. No jaundice ENT: No pain or difficulty swallowing no tongue pain or thrush. has NGT tube in place. NEURO: No behavior changes, + dizziness/lightheadedness- when he tried to stand yest no headaches. very anxious RESP: No cough or shortness of breath CV: No chest pains, palpitations, or irregular heart beat. No shortness of breath or productive cough. CP: No Dyspnea on exertion, lower extremity edema, cyanosis, GI: No hx of nausea, vomiting, diarrhea, constipation. : has allen in place. Urine is still slt dark, but has had good outptu. MUSCULOSKELETAL: No joint swelling, muscle weakness or pain in the extremities. No rashes. No calf pain or swelling Physical Exam: All vitals have been reviewed A & O x3 in NAD. Very anxious SHEENT examination revealed Mucous membranes are moist. No jaundice. Dentition is intact No JVD. No bruising. No corneal abrasions. Examination of the chest revealed Normal excursion. CTA b/l. No R/R/W. Examination of the heart revealed NSR. No new murmers. No s/s of fluid overload. Examination of the abdomen revealed few BS. + distention. wound was left open and has a wound vac in place. The neuromuscular examination was intact. No focal deficeits. Moving ext. Independently. No calf pain or tenderness. Distal peripheral pulses are intact. No skin breakdown Pt were able to express questions and concerns and were apprised of there condition and expected discharge. Data: All laboratory data reviewed. All pertinent radiology studies, EKG, path, notes from other consultants, etc have been reviewed. (2) Hernia of abdominal wall: Status: Chronic (3) GERD without esophagitis: Status: Chronic (4) Hypertension: Status: Chronic (5) Depression: Status: Chronic Subjective Subjective Interval history since last seen: Pt is doing well. no headaches. No CP or SOB. no productive cough. no dysuria. no leg pain or swelling. Exam Narrative Exam Narrative: see below Objective Objective Clinical Data: Abnormal lab results 08/23/19 08/24/19 08/24/19 Range/Units 18:27 06:20 06:20 WBC 14.29 H (4.4-10.8) k/cumm RBC 3.84 L (4.50-6.00) m/cumm Hgb 11.6 L D (13.5-17.5) g/dL Hct 36.4 L (40.0-50.0) % MCHC 31.9 L (32.0-36.0) g/dL MPV 12.8 H (8.0-11.0) fL Absolute Neutrophils 10.95 H (1.2-6.7) k/cumm Absolute Monocytes 1.91 H (0.11-0.7) k/cumm pO2 45 L (83-108) mmHg O2 Saturation 83 L (94-98) % ABG pH 7.47 H (7.35-7.45) ABG HCO3 31 H (22-28) mmol/L ABG Base Excess 6.7 H (-3-3) mmol/L BUN 21 H (7-18) mg/dL Glucose 128 H (74-106) mg/dL Calcium 7.1 L (8.5-10.1) mg/dL Magnesium 1.5 L (1.8-2.4) mg/dL Vital Signs Temperature 36.2 C L 08/24/19 00:00 Temperature Source Temporal Artery Scan 08/24/19 00:00 Pulse 87 08/24/19 06:31 Pulse 89 08/24/19 06:50 Respiratory Rate 17 08/24/19 06:50 Respiratory Effort Non-Labored 08/24/19 00:00 Respiratory Depth Normal 08/24/19 00:00 Respiratory Pattern Normal 08/24/19 00:00 Blood Pressure 108/60 08/24/19 06:31 Blood Pressure Mean 68 08/24/19 06:31 Blood Pressure Position Supine 08/24/19 00:00 Pulse Oximetry 92 L 08/24/19 06:50 Respiratory End-tidal CO2 38 08/23/19 12:45 Oxygen Delivery Method Nasal Cannula 08/24/19 00:00 Oxygen Flow Rate 1 08/24/19 00:00 Pain Level 0 08/24/19 00:00 Comment 08/23/19 16:50 Intake & Output 08/23/19 08/23/19 08/24/19 11:59 23:59 11:59 Intake Total 2923.438 / 6010.938 3087.5 / 6010.938 1400 / 1400 Output Total 200 / 1150 950 / 1150 1100 / 1100 Balance 2723.438 / 4860.938 2137.5 / 4860.938 300 / 300 Weight 122.1 kg 122.1 kg 134.9 kg Intake: IV 2923.438 / 6010.938 3087.5 / 6010.938 1400 / 1400 Output: Gastric Drainage 650 / 650 550 / 550 Left Nare 650 / 650 550 / 550 Urine 100 / 400 300 / 400 550 / 550 Estimated Blood Loss 100 / 100 Other: Urine Color Yellow Light Chetna Light Chetna Urine Appearance Clear Clear Comment pt has indwelling allen post op draining clear chetna urine pt has indwelling allen post op draining clear chetna urine Stool Size Small Stool Characteristics Formed Emesis Description None None Gastric Occult Blood Left Nare Positive Positive Laboratory Results WBC 14.29 k/cumm (4.4-10.8) H 08/24/19 06:20 RBC 3.84 m/cumm (4.50-6.00) L 08/24/19 06:20 Hgb 11.6 g/dL (13.5-17.5) L D 08/24/19 06:20 Hct 36.4 % (40.0-50.0) L 08/24/19 06:20 MCV 94.8 fL (80-95) 08/24/19 06:20 MCH 30.2 pg (27.0-33.0) 08/24/19 06:20 MCHC 31.9 g/dL (32.0-36.0) L 08/24/19 06:20 RDW 13.6 % (11.8-14.1) 08/24/19 06:20 Plt Count 141 x1000/uL (130-400) 08/24/19 06:20 MPV 12.8 fL (8.0-11.0) H 08/24/19 06:20 Immature Gran % 0.3 08/24/19 06:20 Neutrophils % 76.6 08/24/19 06:20 Lymphocytes % 9.5 08/24/19 06:20 Monocytes % 13.4 08/24/19 06:20 Eosinophils % 0.1 08/24/19 06:20 Basophils % 0.1 08/24/19 06:20 Absolute Neutrophils 10.95 k/cumm (1.2-6.7) H 08/24/19 06:20 Absolute Lymphocytes 1.36 k/cumm (1.2-3.4) 08/24/19 06:20 Absolute Monocytes 1.91 k/cumm (0.11-0.7) H 08/24/19 06:20 Absolute Eosinophils 0.01 k/cumm (0.0-0.7) 08/24/19 06:20 Absolute Basophils 0.01 k/cumm (0.0-0.2) 08/24/19 06:20 Differential Comment Agrees w/ instrument 08/24/19 06:20 RBC Morphology Normal 08/24/19 06:20 Sample Site Right radial 08/23/19 18:27 pCO2 42 mmHg (34-47) 08/23/19 18:27 pO2 45 mmHg (83-108) L 08/23/19 18:27 O2 Saturation 83 % (94-98) L 08/23/19 18:27 ABG pH 7.47 (7.35-7.45) H 08/23/19 18:27 ABG HCO3 31 mmol/L (22-28) H 08/23/19 18:27 ABG Total CO2 27 mmol/L (22-29) 08/23/19 18:27 ABG Base Excess 6.7 mmol/L (-3-3) H 08/23/19 18:27 FiO2 21 % 08/23/19 18:27 Sodium 140 mmol/L (136-145) 08/24/19 06:20 Potassium 3.5 mmol/L (3.5-5.1) 08/24/19 06:20 Chloride 102 mmol/L (98-107) 08/24/19 06:20 Carbon Dioxide 30.6 mmol/L (21.0-32.0) 08/24/19 06:20 Anion Gap 7.4 mmol/L (3-11) 08/24/19 06:20 BUN 21 mg/dL (7-18) H 08/24/19 06:20 Creatinine 1.26 mg/dL (0.70-1.30) 08/24/19 06:20 Estimated GFR/1.73 m2 >= 60.00 (mL/min/1.73m2) 08/24/19 06:20 Glucose 128 mg/dL (74-106) H 08/24/19 06:20 Lactate Cancelled 08/23/19 20:00 Calcium 7.1 mg/dL (8.5-10.1) L 08/24/19 06:20 Magnesium 1.5 mg/dL (1.8-2.4) L 08/24/19 06:20 Total Bilirubin 2.0 mg/dL (0.2-1.0) H 08/23/19 05:45 AST 26 U/L (15-37) 08/23/19 05:45 ALT 27 U/L (16-63) 08/23/19 05:45 Alkaline Phosphatase 102 U/L (46-116) 08/23/19 05:45 Total Protein 6.9 g/dL (6.4-8.2) 08/23/19 05:45 Albumin 3.2 g/dL (3.4-5.0) L 08/23/19 05:45 Lipase 57 U/L (73-393) L 08/23/19 05:45 Patient ABO/Rh A Positive 08/23/19 07:28 Antibody Screen Negative 08/23/19 07:28
[2019-08-24] MEDS: CIPROFLOXACIN 400 MG/200 ML BAG 200 MG IVPB ×2 (08:51→20:12)
--- NOTE | 2019-08-24 08:53 | PGE_ITS ---
Date of Service Date of service: 08/24/19 Time of Service: 07:00 Assessment and Plan Assessment and plan (1) Incarcerated incisional hernia: Status: Acute Assessment and plan: POD #1 Blood pressure is up this morning. Currently on Room air. Epidural in place Wound vac in place- tubing was blocked. Changed wound vac this morning with [facility] staff. NG tube in place ~200 ccs of dark green/brown, thick fluid. This will need to be checked frequently to ensure no clogging of the tubing. Allen in place Encouraged use of the incentive spirometer frequently throughout the day. Subjective Subjective Interval history since last seen: Patient reports that he is feeling much better today. He reports that he can feel his stomach gurgling however he has not passed any flatus. Denies any nausea or vomiting at this time. Exam Const General: cooperative and comfortable Orientation: alert and oriented x3 Resp Effort & Inspection: normal respiratory effort, no audible wheezes and no cough GI Inspection: normal to inspection and other (Midline incision with wound vac in place. ) Palpation: soft, no guarding and nontender Objective Objective Clinical Data: Abnormal lab results 08/23/19 08/24/19 08/24/19 Range/Units 18:27 06:20 06:20 WBC 14.29 H (4.4-10.8) k/cumm RBC 3.84 L (4.50-6.00) m/cumm Hgb 11.6 L D (13.5-17.5) g/dL Hct 36.4 L (40.0-50.0) % MCHC 31.9 L (32.0-36.0) g/dL MPV 12.8 H (8.0-11.0) fL Absolute Neutrophils 10.95 H (1.2-6.7) k/cumm Absolute Monocytes 1.91 H (0.11-0.7) k/cumm pO2 45 L (83-108) mmHg O2 Saturation 83 L (94-98) % ABG pH 7.47 H (7.35-7.45) ABG HCO3 31 H (22-28) mmol/L ABG Base Excess 6.7 H (-3-3) mmol/L BUN 21 H (7-18) mg/dL Glucose 128 H (74-106) mg/dL Calcium 7.1 L (8.5-10.1) mg/dL Magnesium 1.5 L (1.8-2.4) mg/dL Vital Signs Temperature 36.2 C L 08/24/19 00:00 Temperature Source Temporal Artery Scan 08/24/19 00:00 Pulse 87 08/24/19 06:31 Pulse 89 08/24/19 06:50 Respiratory Rate 17 08/24/19 06:50 Respiratory Effort Non-Labored 08/24/19 00:00 Respiratory Depth Normal 08/24/19 00:00 Respiratory Pattern Normal 08/24/19 00:00 Blood Pressure 108/60 08/24/19 06:31 Blood Pressure Mean 68 08/24/19 06:31 Blood Pressure Position Supine 08/24/19 00:00 Pulse Oximetry 92 L 08/24/19 06:50 Respiratory End-tidal CO2 38 08/23/19 12:45 Oxygen Delivery Method Nasal Cannula 08/24/19 00:00 Oxygen Flow Rate 1 08/24/19 00:00 Pain Level 0 08/24/19 00:00 Comment 08/23/19 16:50 Intake & Output 08/23/19 08/24/19 08/24/19 18:59 06:59 18:59 Intake Total 5010.938 / 7410.938 2400 / 7410.938 Output Total 1000 / 2250 1250 / 2250 Balance 4010.938 / 5160.938 1150 / 5160.938 Weight 122.1 kg 134.9 kg Intake: IV 5010.938 / 7410.938 2400 / 7410.938 Output: Gastric Drainage 650 / 1200 550 / 1200 Left Nare 650 / 1200 550 / 1200 Urine 250 / 950 700 / 950 Estimated Blood Loss 100 / 100 Other: Urine Color [place] Light Chetna Urine Appearance Clear Clear Comment allen in place and patent - MD aware of poor urine output (averaging 50 cc/hr). Patient receiving LR boluses. pt has indwelling allen post op draining clear chetna urine Stool Size Small Stool Characteristics Formed Emesis Description None Gastric Occult Blood Left Nare Positive Positive Laboratory Results WBC 14.29 k/cumm (4.4-10.8) H 08/24/19 06:20 RBC 3.84 m/cumm (4.50-6.00) L 08/24/19 06:20 Hgb 11.6 g/dL (13.5-17.5) L D 08/24/19 06:20 Hct 36.4 % (40.0-50.0) L 08/24/19 06:20 MCV 94.8 fL (80-95) 08/24/19 06:20 MCH 30.2 pg (27.0-33.0) 08/24/19 06:20 MCHC 31.9 g/dL (32.0-36.0) L 08/24/19 06:20 RDW 13.6 % (11.8-14.1) 08/24/19 06:20 Plt Count 141 x1000/uL (130-400) 08/24/19 06:20 MPV 12.8 fL (8.0-11.0) H 08/24/19 06:20 Immature Gran % 0.3 08/24/19 06:20 Neutrophils % 76.6 08/24/19 06:20 Lymphocytes % 9.5 08/24/19 06:20 Monocytes % 13.4 08/24/19 06:20 Eosinophils % 0.1 08/24/19 06:20 Basophils % 0.1 08/24/19 06:20 Absolute Neutrophils 10.95 k/cumm (1.2-6.7) H 08/24/19 06:20 Absolute Lymphocytes 1.36 k/cumm (1.2-3.4) 08/24/19 06:20 Absolute Monocytes 1.91 k/cumm (0.11-0.7) H 08/24/19 06:20 Absolute Eosinophils 0.01 k/cumm (0.0-0.7) 08/24/19 06:20 Absolute Basophils 0.01 k/cumm (0.0-0.2) 08/24/19 06:20 Differential Comment Agrees w/ instrument 08/24/19 06:20 RBC Morphology Normal 08/24/19 06:20 Sample Site Right radial 08/23/19 18:27 pCO2 42 mmHg (34-47) 08/23/19 18:27 pO2 45 mmHg (83-108) L 08/23/19 18:27 O2 Saturation 83 % (94-98) L 08/23/19 18:27 ABG pH 7.47 (7.35-7.45) H 08/23/19 18:27 ABG HCO3 31 mmol/L (22-28) H 08/23/19 18:27 ABG Total CO2 27 mmol/L (22-29) 08/23/19 18:27 ABG Base Excess 6.7 mmol/L (-3-3) H 08/23/19 18:27 FiO2 21 % 08/23/19 18:27 Sodium 140 mmol/L (136-145) 08/24/19 06:20 Potassium 3.5 mmol/L (3.5-5.1) 08/24/19 06:20 Chloride 102 mmol/L (98-107) 08/24/19 06:20 Carbon Dioxide 30.6 mmol/L (21.0-32.0) 08/24/19 06:20 Anion Gap 7.4 mmol/L (3-11) 08/24/19 06:20 BUN 21 mg/dL (7-18) H 08/24/19 06:20 Creatinine 1.26 mg/dL (0.70-1.30) 08/24/19 06:20 Estimated GFR/1.73 m2 >= 60.00 (mL/min/1.73m2) 08/24/19 06:20 Glucose 128 mg/dL (74-106) H 08/24/19 06:20 Lactate Cancelled 08/23/19 20:00 Calcium 7.1 mg/dL (8.5-10.1) L 08/24/19 06:20 Magnesium 1.5 mg/dL (1.8-2.4) L 08/24/19 06:20 Total Bilirubin 2.0 mg/dL (0.2-1.0) H 08/23/19 05:45 AST 26 U/L (15-37) 08/23/19 05:45 ALT 27 U/L (16-63) 08/23/19 05:45 Alkaline Phosphatase 102 U/L (46-116) 08/23/19 05:45 Total Protein 6.9 g/dL (6.4-8.2) 08/23/19 05:45 Albumin 3.2 g/dL (3.4-5.0) L 08/23/19 05:45 Lipase 57 U/L (73-393) L 08/23/19 05:45 Patient ABO/Rh A Positive 08/23/19 07:28 Antibody Screen Negative 08/23/19 07:28
--- NOTE | 2019-08-24 10:04 | PHARADMIT ---
Admission Pharmacy Clinical Review STRANGULATED INCISIONAL HERNIA (OR Procedure 08/23/19) Code Status Full Code Current Weight 134.9 kg Renally Cleared and Narrow Therapeutic Index Meds CrCl~80ml/min QTc Value / Action Taken QTC 429 (Cipro/Zofran/Epidural) BP Control, Fever BP 106/63 (was softer ~ 6pm last night) Afebrile Electrolytes reviewed K+ 3.5 Mag 1.5 (being replaced IV) DVT Prophylaxis Lovenox 40mg Opiate Usage / Scheduled Bowel Regimen Ordered Epidural Plt/SCr for Heparin / Enoxaparin Plt 141 SCr 1.26 INR for Warfarin H/H stable, WBC/Bands H/H 11.6/36.4 WBC 14.29 (down from 19.73) Antibiotic appropriateness Cipro/Flagyl Cultures and Sensitivities Surgical ABX d/c within 24 hr DM control / Insulin Dosing BG 128 Heart Failure (Check EF%) (BRITTNEY's, B-Block, Diuretics) Norepinephrine infusion IV to PO Switch Home Meds Reviewed ok Home Meds Not Ordered Lisinopril/HCTZ Comments Epidural @8ml/hr with bolus'-monitored by BRIM RAISER Wound vac, G-tube
[2019-08-24] MEDS: FAMOTIDINE 20 MG/50 ML BAG 200 MG IVPB ×2 (10:28→21:58)
[2019-08-24] MEDS: metroNIDAZOLE 500 MG/100 ML BAG 100 MG IVPB ×3 (10:56→17:21)
[2019-08-24] MEDS: MAGNESIUM SULFATE 2 GM/50 ML BAG IVPB (11:25)
[2019-08-24] MEDS: FentaNYL/ROPIvacaine 2 mcg/ml and 0.1% 200 ML CADD Cassette EP (12:34)
[2019-08-24] MEDS: LORazepam 0.5 MG TAB PO (13:07)
--- NOTE | 2019-08-24 13:27 | PDOC.ANES ---
Date of service: 08/24/19 Anesthesia Note Report Anesthesia Note: Epidural Daily Maintenance Note: Pt laying in bed this AM with epidural still running (8mL/hr, 3 mL PCEA). States pain 1/10 while in bed, but is concerned about the amount of pain he may have when he gets out of bed so his PCEA dose increased to 5 mL. Currently off norepinephrine. Epidural site intact but with blood under dressing. Called to bedside later in the day for increased blood from the site. Robles GOEL performed a sterlie dressing change. Plan to maintain current rate over night.
--- NOTE | 2019-08-24 13:47 | W.PM.PROGNOT ---
Date of Service Date of service: 08/24/19 Time of Service: 13:47 Assessment and Plan Assessment and plan (1) Incarcerated incisional hernia: Status: Acute Assessment and plan: A\\ Doing well. Pain is controlled. WBC count has improved P\\ Continue with NG tube decompression Ambulate and or sit in chair at least tid Diet: NPO except hard candy, ice chips or chewing gum DVT prophilaxis: Continue with SCD's and Lovenox. May need to hold lovenox if continues to ooze from his wound (2) Anxiety about health: Status: Acute Assessment and plan: A\\ Severe anxiety/ stress P\\ Ativan 0.5 to 1 mg every 2 hours as needed (3) Tendency toward bleeding easily: Status: Acute Assessment and plan: A\\ History of easy bleeding in the past. NO work up that he is aware of P\\ May need outpatient workup (4) Leukocytosis: Status: Acute Assessment and plan: A\\ Improving WBC count P\\ Continue antibiotics Qualifiers: Leukocytosis type: lymphocytosis Qualified Code(s): D72.820 - Lymphocytosis (symptomatic) Subjective Subjective Interval history since last seen: Doing well. Vac is not working again. Daphne is trying to fix it as I walk in the room. There is a large clot noted on top of the black foam. Patient started to feel weak again due to stress/ anxiety. He was placed back into bed with his head down. Exam GI Other: Wound vac dressing removed. large blot clot noted. Under the dressing there was pooling of blood. The wound was cleaned and I found a small arterial bleeder. The bleeder was suture ligated with 3-0 vicryl. 3 other areas of bleeding were noted and suture lid-gated with either 3-0 vicryl or 2-0 vicryl. Surgicel was then applied over the wound to help coagulate the small amount of oozing left. 4x4 were applied and then covered with ABD. The dressing was secured with foam tape to apply some pressure. Objective Objective Clinical Data: Abnormal lab results 08/23/19 08/24/19 08/24/19 Range/Units 18:27 06:20 06:20 WBC 14.29 H (4.4-10.8) k/cumm RBC 3.84 L (4.50-6.00) m/cumm Hgb 11.6 L D (13.5-17.5) g/dL Hct 36.4 L (40.0-50.0) % MCHC 31.9 L (32.0-36.0) g/dL MPV 12.8 H (8.0-11.0) fL Absolute Neutrophils 10.95 H (1.2-6.7) k/cumm Absolute Monocytes 1.91 H (0.11-0.7) k/cumm pO2 45 L (83-108) mmHg O2 Saturation 83 L (94-98) % ABG pH 7.47 H (7.35-7.45) ABG HCO3 31 H (22-28) mmol/L ABG Base Excess 6.7 H (-3-3) mmol/L BUN 21 H (7-18) mg/dL Glucose 128 H (74-106) mg/dL Calcium 7.1 L (8.5-10.1) mg/dL Magnesium 1.5 L (1.8-2.4) mg/dL Vital Signs Temperature 98.2 F 08/24/19 12:39 Temperature Source Temporal Artery Scan 08/24/19 08:15 Pulse 93 H 08/24/19 12:39 Pulse 102 H 08/24/19 09:10 Respiratory Rate 15 08/24/19 12:39 Respiratory Effort Non-Labored 08/24/19 08:15 Respiratory Depth Shallow 08/24/19 08:15 Respiratory Pattern Normal 08/24/19 08:15 Blood Pressure 101/57 L 08/24/19 12:39 Blood Pressure Mean 72 08/24/19 09:01 Blood Pressure Position Supine 08/24/19 00:00 Pulse Oximetry 92 L 08/24/19 12:39 Respiratory End-tidal CO2 38 08/23/19 12:45 Oxygen Delivery Method Room Air 08/24/19 12:39 Oxygen Flow Rate 0 08/24/19 12:39 Pain Level 1 08/24/19 10:26 Comment 08/23/19 16:50 Intake & Output 08/23/19 08/24/19 08/24/19 23:59 11:59 23:59 Intake Total 3087.5 / 6010.938 1500 / 1500 Output Total 950 / 1150 1100 / 1100 Balance 2137.5 / 4860.938 400 / 400 Weight 269 lb 2.951 oz 297 lb 6.457 oz Intake: IV 3087.5 / 6010.938 1500 / 1500 Output: Gastric Drainage 650 / 650 550 / 550 Left Nare 650 / 650 550 / 550 Urine 300 / 400 550 / 550 Other: Urine Color Light Chetna Light Chetna Urine Appearance Clear Clear Comment pt has indwelling allen post op draining clear chetna urine Allen in place Emesis Description None Gastric Occult Blood Left Nare Positive Positive Laboratory Results WBC 14.29 k/cumm (4.4-10.8) H 08/24/19 06:20 RBC 3.84 m/cumm (4.50-6.00) L 08/24/19 06:20 Hgb 11.6 g/dL (13.5-17.5) L D 08/24/19 06:20 Hct 36.4 % (40.0-50.0) L 08/24/19 06:20 MCV 94.8 fL (80-95) 08/24/19 06:20 MCH 30.2 pg (27.0-33.0) 08/24/19 06:20 MCHC 31.9 g/dL (32.0-36.0) L 08/24/19 06:20 RDW 13.6 % (11.8-14.1) 08/24/19 06:20 Plt Count 141 x1000/uL (130-400) 08/24/19 06:20 MPV 12.8 fL (8.0-11.0) H 08/24/19 06:20 Immature Gran % 0.3 08/24/19 06:20 Neutrophils % 76.6 08/24/19 06:20 Lymphocytes % 9.5 08/24/19 06:20 Monocytes % 13.4 08/24/19 06:20 Eosinophils % 0.1 08/24/19 06:20 Basophils % 0.1 08/24/19 06:20 Absolute Neutrophils 10.95 k/cumm (1.2-6.7) H 08/24/19 06:20 Absolute Lymphocytes 1.36 k/cumm (1.2-3.4) 08/24/19 06:20 Absolute Monocytes 1.91 k/cumm (0.11-0.7) H 08/24/19 06:20 Absolute Eosinophils 0.01 k/cumm (0.0-0.7) 08/24/19 06:20 Absolute Basophils 0.01 k/cumm (0.0-0.2) 08/24/19 06:20 Differential Comment Agrees w/ instrument 08/24/19 06:20 RBC Morphology Normal 08/24/19 06:20 Sample Site Right radial 08/23/19 18:27 pCO2 42 mmHg (34-47) 08/23/19 18:27 pO2 45 mmHg (83-108) L 08/23/19 18:27 O2 Saturation 83 % (94-98) L 08/23/19 18:27 ABG pH 7.47 (7.35-7.45) H 08/23/19 18:27 ABG HCO3 31 mmol/L (22-28) H 08/23/19 18:27 ABG Total CO2 27 mmol/L (22-29) 08/23/19 18:27 ABG Base Excess 6.7 mmol/L (-3-3) H 08/23/19 18:27 FiO2 21 % 08/23/19 18:27 Sodium 140 mmol/L (136-145) 08/24/19 06:20 Potassium 3.5 mmol/L (3.5-5.1) 08/24/19 06:20 Chloride 102 mmol/L (98-107) 08/24/19 06:20 Carbon Dioxide 30.6 mmol/L (21.0-32.0) 08/24/19 06:20 Anion Gap 7.4 mmol/L (3-11) 08/24/19 06:20 BUN 21 mg/dL (7-18) H 08/24/19 06:20 Creatinine 1.26 mg/dL (0.70-1.30) 08/24/19 06:20 Estimated GFR/1.73 m2 >= 60.00 (mL/min/1.73m2) 08/24/19 06:20 Glucose 128 mg/dL (74-106) H 08/24/19 06:20 Lactate Cancelled 08/23/19 20:00 Calcium 7.1 mg/dL (8.5-10.1) L 08/24/19 06:20 Magnesium 1.5 mg/dL (1.8-2.4) L 08/24/19 06:20 Total Bilirubin 2.0 mg/dL (0.2-1.0) H 08/23/19 05:45 AST 26 U/L (15-37) 08/23/19 05:45 ALT 27 U/L (16-63) 08/23/19 05:45 Alkaline Phosphatase 102 U/L (46-116) 08/23/19 05:45 Total Protein 6.9 g/dL (6.4-8.2) 08/23/19 05:45 Albumin 3.2 g/dL (3.4-5.0) L 08/23/19 05:45 Lipase 57 U/L (73-393) L 08/23/19 05:45 Patient ABO/Rh A Positive 08/23/19 07:28 Antibody Screen Negative 08/23/19 07:28
[2019-08-24 14:03] LABS: HCT 35.1 % (40.0-50.0); HGB 11.2 g/dL (13.5-17.5)
--- NOTE | 2019-08-24 14:35 | INITIAL_ITS ---
- If Service Date Differs Date of service: 08/24/19 Time of Service: 14:35 Care Management Initial Assess REASON FOR HOSPITALIZATION:: Strangulated incisional hernia. PAST MEDICAL HISTORY/PAST SURGICAL HISTORY:: Medical History: GERD without esophagitis (Chronic), Hernia of abdominal wall (Chronic), and Hypertension (Chronic). Surgical History: S/P appendectomy (Acute), and S/P exploratory laparotomy (Acute). PREVIOUS FUNCTIONAL STATUS/SOCIAL/FAMILY SUPPORTS:: Cristi resides in [place] with his girlfriend of 6 months. He is currently unemployed and is actively looking for work. He shares he worked at [employer] for 8 years but after suffering a back injury at work and filing a workmen's comp claim, he was let go approximately a week ago. Cristi reports he has a very supportive family and spends a lot of his free time with his mother, sister, brother, nieces and nephews, and inlaws. He also has an 11 year old daughter who lives with her mom but whom he sees on a regular basis for visitation. Cristi drives and is independent in his ADLs at baseline. CURRENT FUNCTIONAL STATUS:: Cristi is lying in bed when CM comes to meet with him. His mother, Bridgett, is present in the room. He reports he is doing pretty well. His diet consists of ice chips and he states he can't wait until he can have some mashed potatoes. He expresses some concerns around caring for his wound and changing the dressing once discharged home, and seems relieved when advises that we will set-up in-home nursing services to assist with wound care. ADVANCE DIRECTIVES:: None on file. Has patient been provided with information about the portal?: No Did the patient sign up for the portal?: No CODE STATUS:: Full Code INSURANCE COVERAGE / FINANCIAL ISSUES:: BC BS, Financial Asst 85, and GISC/[employer]ign[employer]. Cristi advises that BC BS was through his employer, but since he is no longer employed at [employer], the BC BS policy may no longer be effective. CURRENT HOME/COMMUNITY SERVICES/EQUIPMENT:: Cristi goes to outpatient physical therapy for his back injury. He has no other community services and has no medical equipment. PRIMARY CARE PHYSICIAN:: Jhonny Alford, [place], WEB MARKETING COORDINATOR-C, [facility]. POTENTIAL DISCHARGE NEEDS:: Follow-up with primary care physician and surgeon. Anticipate new nursing services and resumption of physical therapy upon discharge. PATIENT/FAMILY EDUCATION NEEDS:: Discharge plan, limitations, follow up plan, including Ask Me Three and self-management. ANTICIPATED BARRIERS TO DISCHARGE:: No barriers anticipated at this time. TRANSPORTATION:: Via private vehicle by family when ready. PLAN:: Cristi will be discharged home when medically cleared by provider. Anticipate new nursing services. Transport will be provided by family via private vehicle upon discharge. CM continues to follow and to support discharge planning considerations.
--- NOTE | 2019-08-24 15:00 | CHAPLAIN ---
Cristi was resting in bed, with family members visiting, when I stopped in this morning. He said his mom was here yesterday afternoon and spent the night before going to work. Cristi seems to be well supported by family. I introduced myself, explained my role and offered support.
[2019-08-24] MEDS: Lactated Ringers 1,000 ML 150 ML IV (19:08)
[2019-08-25] VITALS (122 sets, daily range): BP systolic 106–160; BP diastolic 56–92; PULSE 82–121; RESP 13–26; TEMP 36.6–37.8; O2SAT 89–100
[2019-08-25 00:37] LABS: Anion Gap 3.8 mmol/L (3-11); CO2 32.2 mmol/L (21.0-32.0); Chloride 102 mmol/L (98-107); Potassium 3.4 mmol/L (3.5-5.1); Sodium 138 mmol/L (136-145); TSH 1.13 uIU/mL (0.36-3.74)
[2019-08-25 00:38] LABS: Troponin I < 0.05 ng/Ml (<0.06)
--- NOTE | 2019-08-25 01:06 | NUR.NOTE ---
2315-pt had 13 beat run VT-four separate runs then broke to a fib after first run. Resolved to sinus rhythm. Dr Vick notified. Labs drawn and notifed. Orders recieved.Nursing Note:
[2019-08-25] MEDS: POTASSIUM CHLORIDE 10 MEQ/100 ML BAG 100 MEQ IVPB ×2 (01:53→14:54)
[2019-08-25] MEDS: MAGNESIUM SULFATE 1 GM/100 ML BAG IVPB (01:56)
[2019-08-25] MEDS: metroNIDAZOLE 500 MG/100 ML BAG 100 MG IVPB ×3 (01:56→17:35)
--- NOTE | 2019-08-25 03:00 | NUR.NOTE ---
at 0115, pt had another short run of V Tach. Was followed by some svt then back to sius rhythm.Nursing Note:
[2019-08-25] MEDS: Ketorolac 30 MG/ML VIAL IVP (03:49)
[2019-08-25] MEDS: ACETAMINOPHEN 1,000 MG/100 ML BTL 400 MG IVPB ×3 (03:50→17:30)
[2019-08-25] MEDS: Lactated Ringers 1,000 ML 150 ML IV ×2 (04:25→13:08)
[2019-08-25 06:51] LABS: Abs Immature Grans 0.04 k/cumm (0.0-0.09); Absolute Basophil Count 0.04 k/cumm (0.0-0.2); Absolute Eosinophil Count 0.38 k/cumm (0.0-0.7); Absolute Lymphocyte Count 1.13 k/cumm (1.2-3.4); Absolute Monocyte Count 1.46 k/cumm (0.11-0.7); Basophils % 0.3; Eosinophils % 2.9; HCT 28.1 % (40.0-50.0); HGB 8.9 g/dL (13.5-17.5); Immature Grans % 0.3; Lymphocytes % 8.6; Mean Corp. HGB Concentration 31.7 g/dL (32.0-36.0); Mean Corpuscular Hemoglobin 30.8 pg (27.0-33.0); Mean Corpuscular Volume 97.2 fL (80-95); Mean Platelet Volume 12.4 fL (8.0-11.0); Monocytes % 11.1; Neutrophils % 76.8; Platelet Count 119 x1000/uL (130-400); RBC 2.89 m/cumm (4.50-6.00); RBC Distribution Width 13.3 % (11.8-14.1); White Blood Cell Count 13.17 k/cumm (4.4-10.8)
[2019-08-25 06:54] LABS: Absolute Neutrophil Count 10.11 k/cumm (1.2-6.7)
[2019-08-25 07:08] LABS: Lactate 0.7 mmol/L (0.6-1.4)
[2019-08-25 07:13] LABS: Troponin I < 0.05 ng/Ml (<0.06)
[2019-08-25 07:30] LABS: Diff Comment RBC Morph Reviewed
[2019-08-25 07:31] LABS: Anisocytosis 1+
--- NOTE | 2019-08-25 07:39 | W.PM.PROGNOT ---
Date of Service Date of service: 08/25/19 Time of Service: 07:39 Assessment and Plan Assessment and plan (1) Incarcerated incisional hernia: Status: Acute Assessment and plan: POD #3 ex lap nad sm bowel resection no signs of sepsis cipro/flagyl holding lovenox b/c bleeding (2) Hernia of abdominal wall: Status: Chronic (3) GERD without esophagitis: Status: Chronic Assessment and plan: on H2 brandon (4) Hypertension: Status: Chronic Assessment and plan: off meds currently (5) Tendency toward bleeding easily: Status: Acute Assessment and plan: PTT this am was 40. repeat at 2pm Pt is currently have non surgical bleeding toradol/lovenox has been stopped poss vWF trait? labs sent to [facility]. d/w Dr. Hagen and heme at [facility] currently pt is symp. from low hgb. continues to ooze and starting transfusion. pressure dressing on epidural and abdom. hold dressing changes at this time. concerned about trying to remove epidural and developing bleeding/epidural hematoma. (6) Anxiety about health: Status: Acute Assessment and plan: ativan prn (7) Ventricular tachycardia seen on playground monitor: Status: Acute Assessment and plan: electrolytes adjusted TSH- nl EKG showed frequent multiform ectopic ventricular beats. echo- PD happened during the night while pt was asleep. He has epidural: w/ fentyl nad ropivicaine and no additional narcs. NSR today pt was asymp while it occured he did have a vasovagal episode on thursday and thursday- earlier when trying to stand. unclear if these are related. THe was in sinus when the vasavagal events occurred Hosp/cards reccomeneded ischemic workup as outpt and sleep study if continues - consider amioderone. Conisder moth exterminator use of [facility] [place] 3hrs spent w/ pt today in critical care time Subjective Subjective Interval history since last seen: pt doing ok this am. Last pm he had x2 runs of V tachy/tachycardic arrhythmia for 12 secs each. He is on tely and are captured on tely. We checked labs and trop were neg. electrolytes were mildly off and were adjusted. EKG show few episodes of ectopy. Once these were fixed- he had no further episodes. he has never had a CVA/VT. he has hx of HTN and is on lisinopril. He has no hx of sleep apnea- but has the body habitus for it Also- he continues to bleed quit readily from the open abdom wound and epidural sites. he does not give a hx of any spontaneous bleeding as a child/adult. he is not on blood thinners. PTT- 40 this am. He has never had coags done prior to today. lovenox was given last on 09/22 (40mg) and toradol 30mg toradol q6hrs- this was stopped 08/25. his wound was catuerized and had a small bleeder over sewn and surgicell placed yest. continues to bleed through and bleeding from epidural. ddimer: 3723 Fibrinogen 648 Ca 7.1 alb 2 procalitonin: .9 Lactate .7 tsh 1.13 Exam Const General: cooperative, healthy appearing, comfortable, no acute distress, well developed, well groomed and anxious Nutritional Appearance: average body habitus and well nourished Orientation: alert, awake and oriented x3 HENMT Head: normal to inspection, normocephalic and atraumatic Ears: hearing grossly normal bilaterally and external ears normal General nose exam: external nose normal Face and sinus: normal facial exam and sinuses nontender Mouth: oral mucosae normal, lip normal, tongue normal and moist mucous membranes Teeth and gingiva: dentition normal and other (no thrush ) Eyes General: appearance normal, both eyes and all related structures Conjunctivae: conjunctivae normal Sclera: sclerae normal Pupils: PERRL Neck Neck: normal visual inspection and full ROM Chest Chest: normal inspection of the chest Resp Effort & Inspection: normal respiratory effort, able to speak in complete sentences, no cough, no nasal flaring, not tachypneic and no use of accessory muscles Auscultation: clear to auscultation bilaterally, no rales, no rhonchi and no wheezes Other: few crackles R base Cardio Jugular venous pressure: no JVD Rate: regular rate Rhythm: regular rhythm Other: currently NSR. VS stable off lisinopril GI Inspection: normal to inspection, no edema and non-distended Palpation: soft, no masses, nontender and No ascites Auscultation: normal bowel sounds Other: few BS. past flatus last PM. only 100cc out of NGT in last 6hrs. wound is clean- no infection. there are no active bleeders. there is clot visible. But continues to bleed through the dressings. Other: urine is still dark- but has good output. much less from NGT today Back/Spine/Pelvis Other: no breakdown bleeding from epidural site Skin General skin exam: no rashes or lesions noted Trauma: no lacerations or abrasions Neuro General: alert, oriented x3, oriented, moves all extremities, no focal motor deficits and CN's II-XI intact bilaterally Cognition: normal cognition Speech: speech normal Gait: normal gait Motor: muscle tone normal throughout Extrem General: normal to inspection, full ROM and no clubbing, cyanosis or edema Psych Appearance: grossly normal and well kempt Mental Status: mental status grossly normal Speech and Movement: speech and movement normal Affect: normal affect Objective Objective Clinical Data: Abnormal lab results 08/24/19 08/25/19 08/25/19 Range/Units 13:54 00:10 06:15 WBC 13.17 H (4.4-10.8) k/cumm RBC 2.89 L (4.50-6.00) m/cumm Hgb 11.2 L 8.9 L D (13.5-17.5) g/dL Hct 35.1 L 28.1 L (40.0-50.0) % MCV 97.2 H (80-95) fL MCHC 31.7 L (32.0-36.0) g/dL Plt Count 119 L (130-400) x1000/uL MPV 12.4 H (8.0-11.0) fL Absolute Neutrophils 10.11 H (1.2-6.7) k/cumm Absolute Lymphocytes 1.13 L (1.2-3.4) k/cumm Absolute Monocytes 1.46 H (0.11-0.7) k/cumm Potassium 3.4 L (3.5-5.1) mmol/L Carbon Dioxide 32.2 H (21.0-32.0) mmol/L Vital Signs Temperature 36.8 C 08/25/19 05:22 Temperature Source Temporal Artery Scan 08/25/19 05:22 Pulse 84 08/25/19 06:00 Pulse 83 08/25/19 06:30 Respiratory Rate 14 08/25/19 06:30 Respiratory Effort 08/25/19 05:22 Respiratory Depth Normal 08/25/19 05:22 Respiratory Pattern Normal 08/25/19 05:22 Blood Pressure 106/63 08/25/19 06:00 Blood Pressure Mean 74 08/25/19 06:00 Blood Pressure Position Supine 08/25/19 05:22 Pulse Oximetry 94 L 08/25/19 05:22 Respiratory End-tidal CO2 38 08/23/19 12:45 Oxygen Delivery Method Room Air 08/25/19 05:22 Oxygen Flow Rate 0 08/25/19 05:22 Pain Level 0 08/25/19 05:22 Comment 08/23/19 16:50 Intake & Output 08/24/19 08/24/19 08/25/19 11:59 23:59 11:59 Intake Total 1720 / 3320 1600 / 3320 1650 / 1650 Output Total 1400 / 2900 1500 / 2900 1000 / 1000 Balance 320 / 420 100 / 420 650 / 650 Weight 134.9 kg 130.9 kg Intake: IV 1720 / 3270 1550 / 3270 1650 / 1650 Oral 50 / 50 Output: Gastric Drainage 550 / 1550 1000 / 1550 500 / 500 Left Nare 550 / 1550 1000 / 1550 500 / 500 Output, Wound Vac (mls) 300 / 300 Urine 550 / 1050 500 / 1050 500 / 500 Other: Urine Color Light Chetna Light Chetna Dark Chetna Urine Appearance Clear Clear Cloudy Comment Allen in place pt has indweling allen cath draining clear chetna urine pt has indweling allen catheter, patent and draiing clear chetna urine Gastric Occult Blood Left Nare Positive Positive Negative Laboratory Results WBC 13.17 k/cumm (4.4-10.8) H 08/25/19 06:15 RBC 2.89 m/cumm (4.50-6.00) L 08/25/19 06:15 Hgb 8.9 g/dL (13.5-17.5) L D 08/25/19 06:15 Hct 28.1 % (40.0-50.0) L 08/25/19 06:15 MCV 97.2 fL (80-95) H 08/25/19 06:15 MCH 30.8 pg (27.0-33.0) 08/25/19 06:15 MCHC 31.7 g/dL (32.0-36.0) L 08/25/19 06:15 RDW 13.3 % (11.8-14.1) 08/25/19 06:15 Plt Count 119 x1000/uL (130-400) L 08/25/19 06:15 MPV 12.4 fL (8.0-11.0) H 08/25/19 06:15 Immature Gran % 0.3 08/25/19 06:15 Neutrophils % 76.8 08/25/19 06:15 Lymphocytes % 8.6 08/25/19 06:15 Monocytes % 11.1 08/25/19 06:15 Eosinophils % 2.9 08/25/19 06:15 Basophils % 0.3 08/25/19 06:15 Absolute Neutrophils 10.11 k/cumm (1.2-6.7) H 08/25/19 06:15 Absolute Lymphocytes 1.13 k/cumm (1.2-3.4) L 08/25/19 06:15 Absolute Monocytes 1.46 k/cumm (0.11-0.7) H 08/25/19 06:15 Absolute Eosinophils 0.38 k/cumm (0.0-0.7) 08/25/19 06:15 Absolute Basophils 0.04 k/cumm (0.0-0.2) 08/25/19 06:15 Differential Comment Rbc morph reviewed 08/25/19 06:15 RBC Morphology See below 08/25/19 06:15 Anisocytosis 1+ 08/25/19 06:15 Sample Site Right radial 08/23/19 18:27 pCO2 42 mmHg (34-47) 08/23/19 18:27 pO2 45 mmHg (83-108) L 08/23/19 18:27 O2 Saturation 83 % (94-98) L 08/23/19 18:27 ABG pH 7.47 (7.35-7.45) H 08/23/19 18:27 ABG HCO3 31 mmol/L (22-28) H 08/23/19 18:27 ABG Total CO2 27 mmol/L (22-29) 08/23/19 18:27 ABG Base Excess 6.7 mmol/L (-3-3) H 08/23/19 18:27 FiO2 21 % 08/23/19 18:27 Sodium 138 mmol/L (136-145) 08/25/19 00:10 Potassium 3.4 mmol/L (3.5-5.1) L 08/25/19 00:10 Chloride 102 mmol/L (98-107) 08/25/19 00:10 Carbon Dioxide 32.2 mmol/L (21.0-32.0) H 08/25/19 00:10 Anion Gap 3.8 mmol/L (3-11) 08/25/19 00:10 BUN 21 mg/dL (7-18) H 08/24/19 06:20 Creatinine 1.26 mg/dL (0.70-1.30) 08/24/19 06:20 Estimated GFR/1.73 m2 >= 60.00 (mL/min/1.73m2) 08/24/19 06:20 Glucose 128 mg/dL (74-106) H 08/24/19 06:20 Lactate 0.7 mmol/L (0.6-1.4) 08/25/19 07:00 Calcium 7.1 mg/dL (8.5-10.1) L 08/24/19 06:20 Magnesium 2.0 mg/dL (1.8-2.4) 08/25/19 00:10 Total Bilirubin 2.0 mg/dL (0.2-1.0) H 08/23/19 05:45 AST 26 U/L (15-37) 08/23/19 05:45 ALT 27 U/L (16-63) 08/23/19 05:45 Alkaline Phosphatase 102 U/L (46-116) 08/23/19 05:45 Troponin I < 0.05 ng/Ml (<0.06) 08/25/19 06:15 Total Protein 6.9 g/dL (6.4-8.2) 08/23/19 05:45 Albumin 3.2 g/dL (3.4-5.0) L 08/23/19 05:45 Lipase 57 U/L (73-393) L 08/23/19 05:45 TSH 1.13 uIU/mL (0.36-3.74) 08/25/19 00:10 Patient ABO/Rh Cancelled 08/25/19 07:36 Antibody Screen Negative 08/23/19 07:28
[2019-08-25 07:46] LABS: Procalcitonin 0.9 ng/mL
[2019-08-25 08:11] LABS: PTT Activated 40.5 sec (21.0-31.4); Prothrombin Time 10.5 sec (9.3-11.0)
[2019-08-25] MEDS: CIPROFLOXACIN 400 MG/200 ML BAG 200 MG IVPB (08:20)
[2019-08-25] MEDS: Normal Saline Flush 10 ML SYR IVP ×2 (08:21→11:07)
[2019-08-25] MEDS: FentaNYL/ROPIvacaine 2 mcg/ml and 0.1% 200 ML CADD Cassette EP (09:00)
--- NOTE | 2019-08-25 09:38 | CMPROGNOTE_ITS ---
- If Service Date Differs Date of service: 08/25/19 Time of Service: 09:38 Care Management Progress Note S/O: Emanuel was sitting up in bed when CM met with him. He was pleasant and cooperative and readily engaged in conversation. Emanuel stated that he is feeling better than he was yesterday. He said the epidural helps with his pain. He said he had gotten OOB yesterday and that he felt good once he was up but that it took a while to motivate himself to do so. Emanuel's wound continues to ooze blood. has consulted with a sightseeing guide (Dr. Hagen at [facility]) regarding Chets tendency to bleed. A: Cristi is a 44 year old man admitted on 08/23/19 with a strangulated incisional hernia P: Cristi will be discharged home when medically cleared by provider. Anticipate new nursing services. Transport will be provided by family via private vehicle upon discharge. CM continues to follow and to support discharge planning considerations.
[2019-08-25 10:13] LABS: D-Dimer 3723 ng/mlFEU (<500)
[2019-08-25] MEDS: FAMOTIDINE 20 MG/50 ML BAG 200 MG IVPB (10:20)
[2019-08-25 11:10] LABS: Abs Immature Grans 0.05 k/cumm (0.0-0.09); Absolute Basophil Count 0.04 k/cumm (0.0-0.2); Absolute Eosinophil Count 0.47 k/cumm (0.0-0.7); Absolute Neutrophil Count 10.51 k/cumm (1.2-6.7); Basophils % 0.3; Eosinophils % 3.4; HCT 28.1 % (40.0-50.0); HGB 8.7 g/dL (13.5-17.5); Immature Grans % 0.4; Lymphocytes % 9.8; Mean Corpuscular Hemoglobin 30.3 pg (27.0-33.0); Mean Corpuscular Volume 97.9 fL (80-95); Mean Platelet Volume 11.5 fL (8.0-11.0); Monocytes % 9.5; Neutrophils % 76.6; Platelet Count 139 x1000/uL (130-400); RBC 2.87 m/cumm (4.50-6.00); RBC Distribution Width 13.5 % (11.8-14.1); White Blood Cell Count 13.72 k/cumm (4.4-10.8)
[2019-08-25 11:13] LABS: Absolute Lymphocyte Count 1.34 k/cumm (1.2-3.4)
[2019-08-25 11:18] LABS: ALT 16 U/L (16-63); AST 22 U/L (15-37); Alkaline Phosphatase 57 U/L (46-116); Anion Gap 4.8 mmol/L (3-11); BUN 17 mg/dL (7-18); Bilirubin, Total 0.5 mg/dL (0.2-1.0); CO2 30.2 mmol/L (21.0-32.0); CREATININE 1.05 mg/dL (0.70-1.30); Calcium 7.1 mg/dL (8.5-10.1); Chloride 103 mmol/L (98-107); Glucose 105 mg/dL (74-106); Magnesium 2.3 mg/dL (1.8-2.4); Potassium 3.5 mmol/L (3.5-5.1); Sodium 138 mmol/L (136-145); Total Protein 4.9 g/dL (6.4-8.2)
[2019-08-25 11:26] LABS: Diff Comment RBC Morph Reviewed; RBC Morphology Normal
--- NOTE | 2019-08-25 12:30 | DI.US_ITS ---
APPROVED REPORT EXAM: Comprehensive 2D, Doppler, and color-flow Echocardiogram Patient Location: In-Patient Quality Specialist: PAVEL Infante (AE) Rhythm: NSR Indications: post op x2 runs of V tachy and a. fib Conclusion This study is technically limited. Left Ventricle : The left ventricle is normal size. Borderline concentric left ventricular hypertroph y. The left ventricular ejection fraction is within the normal range. Flattened septum consistent wit h right ventricular volume and pressure overload. Paradoxical septal motion. Not all wall segments a re well visualized. LVEF is 60-65%. The left ventricular diastolic function is normal. Right Ventricle : Right ventricle is normal in size. The right ventricular systolic function appears normal. Atria : The left atrium size is normal. Right atrium is mildly dilated. Aortic Valve : Aortic valve is probably trileaflet. There is no aortic valvular stenosis. No aortic r egurgitation is present. Mitral Valve : The mitral valve is normal in structure. There is no mitral valve regurgitation noted. No evidence of mitral valve stenosis. Tricuspid Valve : Tricuspid valve is not well visualized. IVC is normal in size and collapses >50% with inspiration. Estimated RVSP is 40-45 mmHg. There is no prior echocardiogram available for comparison. Wall motion Left Ventricle The left ventricle is normal size. The left ventricular ejection fraction is within the normal range. Borderline concentric left ventricular hypertrophy. Flattened septum consistent with right ventricul ar volume and pressure overload. Paradoxical septal motion. Not all wall segments are well visualized . The left ventricular diastolic function is normal. LVEF is 60-65%. Right Ventricle Right ventricle is normal in size. The right ventricular systolic function appears normal. Atria The left atrium size is normal. Right atrium is mildly dilated. Aortic Valve Aortic valve is probably trileaflet. There is no aortic valvular stenosis. No aortic regurgitation is present. Mitral Valve The mitral valve is normal in structure. No evidence of mitral valve stenosis. There is no mitral tino ve regurgitation noted. Tricuspid Valve Tricuspid valve is not well visualized. Mild to moderate tricuspid regurgitation. Pulmonic Valve Pulmonic valve is not well visualized. Great Vessels Aortic root is mildly dilated (4.1cm). IVC is normal in size and collapses >50% with inspiration. Est imated RVSP is 40-45 mmHg. Pericardium There is no pericardial effusion. 2D Dimensions IVSd 1.15 cm M: 0.6-1.2 LV EDV A2C 115.20 mL PWd 1.20 cm M: 0.6 - 1.2 LV EDV A4C 83.00 mL LVDd 4.90 cm M: 4.2 - 5.8 LA Volume Index A4C 16.55 mL/m2 LVDs 3.35 cm M: 2.5 - 4.0 LA Area A4C 16.31 cm2 Aortic Root 4.10 cm M: 3.1 - 3.7 EF AP4 63.49 % RA Area A4C 22.36 cm2 EF AP2 63.72 % LVOT 2.05 cm (M/F) 1.5-2.5 EF BP 66.20 % Ascending Aorta 3.29 cm M: 2.6 - 3.4 LVEF (Teich) 58.80 % LVEF (Ward's) 66.20 % M: 52 - 72 LV Volume 76.50 mL M: 62 - 150 LV Volume Index 31.09 mL/m2 M: 34 - 74 FS 31.20 % LV Diastology E/A Ratio 1.6 MED E' 0.11 (>0.07 m/s) LV E/e MED 9.55 (<14) LAT E' 0.13 (>0.1 m/s) LV E/e LAT 8.45 (<14) Aortic Valve LVOT Area 3.34 cm2 LVOT Peak Royce. 0.85 m/s LVOT Mean Royce. 0.70 m/s INDIRA Vmax 0.00 m/s LVOT Peak Gr. 3.15 mmHg INDIRA Vmax Index 0.84 cm2/m2 LVOT Mean Gr. 2.05 mmHg INDIRA Mean Royce. 0.00 m/s LVOT VTI 0.15 m INDIRA Mean Royce. Index 0.93 cm2/m2 AoV Peak Royce. 1.44 (0.5-1.3 m/s) AoV Mean Royce. 1.02 m/s AO Peak GR. 8.35 mmHg AO Mean GR. 4.87 (<5 mmHg) VTI Ratio 0.72 INDIRA (VTI) 2.39 (2.5-4.5 cm2) INDIRA (VTI) Index 0.97 cm/m2 Mitral Valve MV E Max Royce. 1.09 (0.4-1.3 m/s) MV A Velocity 0.70 (0.4-1.3 m/s) E/A Ratio 1.54 MV Decel. Time 187.20 (160-240 msec) MV PHT 54.29 msec MVA PHT 4.05 cm2 Tricuspid Valve TR P. Velocity 3.15 m/s TV Regurg Vmax 3.15 m/s RAP Estimate 3.00 mmHg RVSP 43.00 mmHg TR P. Gradient 39.55 mmHg
[2019-08-25 12:39] LABS: Fibrinogen (Stat) (Littleton) 648 mg/dL (208-434)
--- NOTE | 2019-08-25 12:45 | PDOC.ANES ---
Date of service: 08/25/19 Time of Service: 12:40 Anesthesia Note Report Anesthesia Note: Anesthesia rounded on pt to check epidural. Concern for bleeding and clot at the site and need for dressing change. Dressing removed and site inspected - large amount of clot and gauze noted to be at site. Unable to visualize catheter insertion site but decision was made to leave clot intact. Occlusive tegaderm CHG dressing placed and reinforced with additional large tegaderm. Epidural remains infusing and pt is using PCEA appropriately. Motor function intact. Pt was up in chair during visit and VSS. Team is aware of likelihood of undiagnosed clotting disorder. Labs have been sent to tertiary center and plan to transfuse 1 unit of blood. Ongoing discussion with surgery team regarding epidural managment and appropriate removal.
[2019-08-25] MEDS: diphenhydrAMINE 50 MG/ML VIAL 25 MG IVP (13:42)
[2019-08-25 14:34] LABS: PTT Activated 40.8 sec (21.0-31.4); Prothrombin Time 10.3 sec (9.3-11.0)
--- NOTE | 2019-08-25 14:41 | PDOC.ANES ---
Date of service: 08/25/19 Time of Service: 14:32 Anesthesia Note Report Anesthesia Note: Anesthesia consulted for placement of midline catheter. Ultrasound used for successful placement of midline catheter. Pt prepped with chlorhexidine and draped with sterile towels. No complications. Flushes easily with good blood return. Report to Dr. Vick.
--- NOTE | 2019-08-25 15:34 | W.MEDCONSULT ---
Date of service: 08/25/19 Time of Service: 15:34 Assessment and Plan Assessment and plan (1) Nonsustained paroxysmal ventricular tachycardia: Status: Acute Assessment and plan: Could be due to electrolyte imbalance, but at some point the patient will have to have an ischemic evaluation in addition to a sleep study. Sleep apnea could have contributed to his ventricular arrhythmia. (2) Elevated partial thromboplastin time (PTT): Status: Acute Assessment and plan: The patient is being transferred to a tertiary care facility for further workup of his bleeding diasthesis. I agree that this transfer is medically necessary as the patient does have bleeding from his epidural site and is a risk for epidural hematoma, which would necessitate neurosurgical intervention. (3) S/P small bowel resection: Status: Acute Assessment and plan: with reanastomosis. Continue current antibotics. Defer to primary team. (4) Incarcerated incisional hernia: Status: Acute Assessment and plan: As gonzálezove (5) Obesity, morbid, BMI 40.0-49.9: Status: Acute Assessment and plan: High risk for sleep apnea - will need an outpatient sleep study (6) Obstructive sleep apnea: Status: Suspected Assessment and plan: will need an outpatient sleep study History of Present Illness History of Present Illness Chief Complaint: Consult for 2 episodes of 12 beats of Vtach overnight during sleep Narrative: Mr Barillas is a 44 year old male with PMHx of hypertension and GERD, as well as prior appendectomy with significant post-op bleeding, per patient, who was admitted to the general surgical service on 08/23/19 for a strangulated incisional hernia, resulting in the patient going to the OR for exploratory laparotomy with reduction of hernia, small bowel resetion with anastamosis, and primary repair of hernia defect by Dr Paris on 08/23/19. EBL was 100 cc. The patient did get epidural anasthesia. Postoperatily, on day 0, the patient did require vasopressors, which were weaned by day 1. He was treated with IV fluids, ciprofloxacin, and metronidazole. The patient has been bleeding from both his surgical site and his epidural site, despite being off of any DVT ppx or antiplatelet therapy. The patient denies any family history of vonWillberands or bleeding or clotting problems. To his knowledge, none of his male relatives young. Hospitalist service was consulted because the patient had 2 episodes of ventricular tachycardia, 12 beats each, while asleep last night. His electrolytes were repleted (both potassium and magnesium). The patient denies chest pain or shortness of breath. His troponin and EKG were within normal limits. 2D echo revealed an EF of 60-65%/, PA pressures of 40-45 mm HG. The patient does endorse history of loud snoring, and his girlfriend, who is at his bedside at the time of my consult, states that the patient is frequently stops breathing while asleep, raising her suspicion that he might have obstructive sleep apnea. His primary team is seeking a transfer to a tertiary care facility due to the risk of epiudral hematoma given the patient's ongoing bleeding from his epidural sight and an elevated PTT of 40.8. The patient denies any numbness/tingling to his BLE's, is able to move his toes, denies saddle anesthesia. He has a allen catheter. He has not yet had a BM postoperatively. Consults Consult date: 08/25/19 Requesting physician: Shanthi Vick Review of Systems Narrative: 12 systems reviewed. Patient feels tired and feels pressure from his abdominal incision. He states his back is sore where he has the epidural. He denies dizziness, chest pain, shortness of breath, nausea, numbness, tingling, saddle anesthesia. [facility] Medical History (Updated 08/25/19 @ 17:37 by Tamera Mooney MD) Elevated partial thromboplastin time (PTT) (Acute) GERD without esophagitis (Chronic) Hernia of abdominal wall (Chronic) Hypertension (Chronic) Ventricular tachycardia seen on color television console monitor (Acute) Surgical History (Updated 08/25/19 @ 17:32 by Tamera Mooney MD) S/P appendectomy (Acute) S/P exploratory laparotomy (Acute) S/P small bowel resection (Acute) S/P vein stripping (Acute) Family History (Updated 08/25/19 @ 17:33 by Tamera Mooney MD) Paternal Uncle Cancer unknown type of cancer; was a smoker Other Heart disease Hypertension Social History Smoking/Tobacco Use Status: Never Alcohol Intake: never Drug use: Never Substance use type: does not use Household members: significant other and children Do you feel safe at home: Yes Do you feel safe in your relationship?: Yes Exam Narrative Exam Narrative: General: Very pleasant obese male, laying flat in bed, appears slightly uncomfortable, A&OX3, getting a blood transfusion when I saw him Neurological: A&Ox3, able to move both legs/toes, no sensory deficits Psychiatric: appropriate speech pattern/content Skin: abdominal incision dressed - dressing is becoming saturated with blood HEENT: Atraumatic, normocephalic, EOMI, dry MM, +NGT, no submandibular or cervical lymphadenopathy, no goiter or JVD, large neck diameter Cardiovascular: RRR, no m/r/g Lungs: CTAB Gastrointestinal: abdominal incision dressed - dressing is becoming saturated with blood. +bowel sounds. Soft Genitourinary: has a allen Extremities: no e/c/c BLE's, + 1 pedal pulses bilaterally, sensation intact, able to move toes. Results Last Vital Signs Temp 36.6 C 08/25/19 13:45 Pulse 93 H 08/25/19 13:45 Resp 16 08/25/19 13:45 BP 128/72 08/25/19 13:45 Pulse Ox 96 08/25/19 13:45 Labs Result diagrams: 08/25/19 10:55 08/25/19 07:00 Labs: Laboratory Results - last 24 hr 08/23/19 08/25/19 08/25/19 07:28 00:10 06:15 WBC 13.17 H RBC 2.89 L Hgb 8.9 L D Hct 28.1 L MCV 97.2 H MCH 30.8 MCHC 31.7 L RDW 13.3 Plt Count 119 L MPV 12.4 H Immature Gran % 0.3 Neutrophils % 76.8 Lymphocytes % 8.6 Monocytes % 11.1 Eosinophils % 2.9 Basophils % 0.3 Absolute Neutrophils 10.11 H Absolute Lymphocytes 1.13 L Absolute Monocytes 1.46 H Absolute Eosinophils 0.38 Absolute Basophils 0.04 Differential Comment Rbc morph reviewed RBC Morphology See below Anisocytosis 1+ PT INR APTT Fibrinogen D-Dimer Factor VIII Activity von Willebrand Activity von Willebrand Antigen vWF Panel Interp vWF Panel Reviewed By Sodium 138 Potassium 3.4 L Chloride 102 Carbon Dioxide 32.2 H Anion Gap 3.8 BUN Creatinine Estimated GFR/1.73 m2 Glucose Lactate Calcium Magnesium 2.0 Total Bilirubin AST ALT Alkaline Phosphatase Troponin I < 0.05 Total Protein Albumin Procalcitonin TSH 1.13 Miscellaneous Test Patient ABO/Rh A Positive Antibody Screen Negative Crossmatch See Detail 08/25/19 08/25/19 08/25/19 06:15 06:15 07:00 WBC RBC Hgb Hct MCV MCH MCHC RDW Plt Count MPV Immature Gran % Neutrophils % Lymphocytes % Monocytes % Eosinophils % Basophils % Absolute Neutrophils Absolute Lymphocytes Absolute Monocytes Absolute Eosinophils Absolute Basophils Differential Comment RBC Morphology Anisocytosis PT INR APTT Fibrinogen D-Dimer Factor VIII Activity von Willebrand Activity von Willebrand Antigen vWF Panel Interp vWF Panel Reviewed By Sodium Cancelled Potassium Cancelled Chloride Cancelled Carbon Dioxide Cancelled Anion Gap Cancelled BUN Cancelled Creatinine Cancelled Estimated GFR/1.73 m2 Cancelled Glucose Cancelled Lactate 0.7 Calcium Cancelled Magnesium Cancelled Total Bilirubin AST ALT Alkaline Phosphatase Troponin I < 0.05 Total Protein Albumin Procalcitonin 0.9 TSH Miscellaneous Test Patient ABO/Rh Antibody Screen Crossmatch 08/25/19 08/25/19 08/25/19 07:00 07:36 07:55 WBC RBC Hgb Hct MCV MCH MCHC RDW Plt Count MPV Immature Gran % Neutrophils % Lymphocytes % Monocytes % Eosinophils % Basophils % Absolute Neutrophils Absolute Lymphocytes Absolute Monocytes Absolute Eosinophils Absolute Basophils Differential Comment RBC Morphology Anisocytosis PT 10.5 INR 1.0 APTT 40.5 H Fibrinogen D-Dimer Factor VIII Activity von Willebrand Activity von Willebrand Antigen vWF Panel Interp vWF Panel Reviewed By Sodium 138 Potassium 3.5 Chloride 103 Carbon Dioxide 30.2 Anion Gap 4.8 BUN 17 Creatinine 1.05 Estimated GFR/1.73 m2 >= 60.00 Glucose 105 Lactate Calcium 7.1 L Magnesium 2.3 Total Bilirubin 0.5 AST 22 ALT 16 Alkaline Phosphatase 57 Troponin I Total Protein 4.9 L Albumin 2.0 L Procalcitonin TSH Miscellaneous Test Patient ABO/Rh Cancelled Antibody Screen Crossmatch 08/25/19 08/25/19 08/25/19 07:55 10:35 10:55 WBC RBC Hgb Hct MCV MCH MCHC RDW Plt Count MPV Immature Gran % Neutrophils % Lymphocytes % Monocytes % Eosinophils % Basophils % Absolute Neutrophils Absolute Lymphocytes Absolute Monocytes Absolute Eosinophils Absolute Basophils Differential Comment RBC Morphology Anisocytosis PT INR APTT Fibrinogen 648 H D-Dimer 3723 H Factor VIII Activity von Willebrand Activity von Willebrand Antigen vWF Panel Interp vWF Panel Reviewed By Sodium Potassium Chloride Carbon Dioxide Anion Gap BUN Creatinine Estimated GFR/1.73 m2 Glucose Lactate Calcium Magnesium Total Bilirubin AST ALT Alkaline Phosphatase Troponin I Total Protein Albumin Procalcitonin TSH Miscellaneous Test Patient ABO/Rh Cancelled Antibody Screen Crossmatch 08/25/19 08/25/19 08/25/19 10:55 10:55 14:00 WBC 13.72 H RBC 2.87 L Hgb 8.7 L Hct 28.1 L MCV 97.9 H MCH 30.3 MCHC 31.0 L RDW 13.5 Plt Count 139 MPV 11.5 H Immature Gran % 0.4 Neutrophils % 76.6 Lymphocytes % 9.8 Monocytes % 9.5 Eosinophils % 3.4 Basophils % 0.3 Absolute Neutrophils 10.51 H Absolute Lymphocytes 1.34 Absolute Monocytes 1.30 H Absolute Eosinophils 0.47 Absolute Basophils 0.04 Differential Comment Rbc morph reviewed RBC Morphology Normal Anisocytosis PT 10.3 INR 1.0 APTT 40.8 H Fibrinogen D-Dimer Factor VIII Activity Cancelled von Willebrand Activity Cancelled von Willebrand Antigen Cancelled vWF Panel Interp Cancelled vWF Panel Reviewed By Cancelled Sodium Potassium Chloride Carbon Dioxide Anion Gap BUN Creatinine Estimated GFR/1.73 m2 Glucose Lactate Calcium Magnesium Total Bilirubin AST ALT Alkaline Phosphatase Troponin I Total Protein Albumin Procalcitonin TSH Miscellaneous Test Cancelled Patient ABO/Rh Antibody Screen Crossmatch Imaging Additional studies: EKG: Left Ventricle : The left ventricle is normal size. Borderline concentric left ventricular hypertrophy. The left ventricular ejection fraction is within the normal range. Flattened septum consistent with right ventricular volume and pressure overload. Paradoxical septal motion. Not all wall segments are well visualized. LVEF is 60-65%. The left ventricular diastolic function is normal. Right Ventricle : Right ventricle is normal in size. The right ventricular systolic function appears normal. Atria : The left atrium size is normal. Right atrium is mildly dilated. Aortic Valve : Aortic valve is probably trileaflet. There is no aortic valvular stenosis. No aortic regurgitation is present. Mitral Valve : The mitral valve is normal in structure. There is no mitral valve regurgitation noted. No evidence of mitral valve stenosis. Tricuspid Valve : Tricuspid valve is not well visualized. IVC is normal in size and collapses >50% with inspiration. Estimated RVSP is 40-45 mmHg. There is no prior echocardiogram available for comparison.
[2019-08-25 15:57] LABS: Ionized Calcium 0.94 mmol/L (1.12-1.32)
--- NOTE | 2019-08-25 16:00 | W.PM.DS.N ---
Date of service: 08/25/19 Time of Service: 16:00 DS: Diagnosis Discharge Diagnosis (1) Incarcerated incisional hernia: Status: Acute (2) Hernia of abdominal wall: Status: Chronic (3) GERD without esophagitis: Status: Chronic (4) Hypertension: Status: Chronic (5) Tendency toward bleeding easily: Status: Acute (6) Anxiety about health: Status: Acute (7) Ventricular tachycardia seen on diagnostic cardiac sonographer: Status: Acute (8) Elevated partial thromboplastin time (PTT): Status: Acute (9) S/P small bowel resection: Status: Acute Discharge Plan Disposition Patient Disposition: GUERITA ROBBINS ([facility]) Condition: Fair Discharge Details Chief Complaint: Nausea/Vomit/Diar Clinical Impression: Incarcerated ventral hernia, SBO (small bowel obstruction) Reason For Visit: STRANGULATED INCISIONAL HERNIA Admit Date/Time: 08/23/19 11:08 Admit Provider: Humberto Chacon Attending Provider: Humberto Chacon Primary Care Provider: Jhonny Causey ED Provider: Carolyn Singh [place] [facility] Course Hospital Course: Pt was admitted on 08/22 w/ an incarcerated venral hernia. (He had a remote Hx of an ex lap for a ruptured appendix and developed an incisional hernia. Pt mother said he has a hx of easily bleeding and echymosis w/ injury. No spontaneous bleeding- nose bleeds joint bleeding. no family hx of coagulopathy) He underwent ex lap and small bowel resection. He was noted to be oozy at the time of surgery and with insertion of the epidural. ( He did not have coags drawn prior to the surgery. He is not on blood thinners at home.) since the surgery- he has been having continued ooze from skin and epidural. PTT today in 40. 4 & 40.8. He was started on lovenox and toradol posatOP. His lovenox was stopped 08/23. Toradol was stopped 08/25. plt today are 139. Also at midnight 08/25- pt had x2 separate runs of V. tach. This occurred while the pt was sleeping. trop were neg x2. EKG shows: sinus tach and refquent multiform ectopic ventricular beats. there was mild derangement of elctrolytes. These have been corrected. lactate and procalcitonin 08/25 are WNL. 08/25 ECHO: This study is technically limited. Left Ventricle : The left ventricle is normal size. Borderline concentric left ventricular hypertrophy. The left ventricular ejection fraction is within the normal range. Flattened septum consistent with right ventricular volume and pressure overload. Paradoxical septal motion. Not all wall segments are well visualized. LVEF is 60-65%. The left ventricular diastolic function is normal. Right Ventricle : Right ventricle is normal in size. The right ventricular systolic function appears normal. Atria : The left atrium size is normal. Right atrium is mildly dilated. Aortic Valve : Aortic valve is probably trileaflet. There is no aortic valvular stenosis. No aortic regurgitation is present. Mitral Valve : The mitral valve is normal in structure. There is no mitral valve regurgitation noted. No evidence of mitral valve stenosis. Tricuspid Valve : Tricuspid valve is not well visualized. IVC is normal in size and collapses >50% with inspiration. Estimated RVSP is 40-45 mmHg. There is no prior echocardiogram available for comparison. DATE OF PROCEDURE: 08/23/19 PRE-OP DIAGNOSIS: Incarcerated incisional hernia POST-OP DIAGNOSIS: other (Starngulated incisional hernia) PROCEDURE: Exploratory Laparotomy with reduction of hernia Small bowel resection with anastamosis Primary repair of hernia defects SURGEON: Humberto Chacon CASH REGISTER MECHANIC: Meghna Mauricio ANESTHESIA: GETA (Sherie Arboleda CRNA/ ASA 2A) and epidural ESTIMATED BLOOD LOSS: 100 PATHOLOGY: other (Small bowel 36 cm) COMPLICATIONS: None Patient was transported to: PACU Patient's condition: critical Indications: Mr. Barillas is a pleasant 44 year old male seen in the ER this am with an incarcerated incisional hernia. Patient had a high grade obstruction on CT scan. he had been sick for at least 2 days. Exploratory laparotomy with reduction of hernia and possible bowel resection was discussed with the patient. Risks, benefits and complications off bleeding, pain, infection, anastamotic leak, intra-abdominal abscess, injury to bowel and stomach, [place], Stroke and were reviewed. Questions were entertained and answered to his satisfaction and he wished to proceed. No guarantees were given or implied. Findings: Small bowel that looked thickened and congested with areas suspicious for necrosis. Procedure Description: After informed consent was obtained the patient was taken to the operating room and an epidural was placed by anesthesia. Once in place the patient was placed in a supine position on the table. He was placed under general anesthesia and intubated without complication. SCD's were applied prior to being placed under general anesthesia. Once asleep and intubated a Allen catheter was placed in a standard fashion. His abdominal hair was then clipped. His abdomen was then prepped and draped in a standard fashion. At this point a time out was done. The patient's name, , allergies to medications, DVT prophilaxis, antibiotics given, Pre-operative diagnoses and procedure to be done were reviewed. Fire risk was assessed. Next 2% Lidocaine was injected along his old midline incision. An incision was made with a 10 blade. Dissection was taken down carefully at the most superior portion of his incision with hemostats and cautery until I got to the fascia. The fascia was scored and the peritoneum was entered bluntly. Adhesions were identified from his transverse colon to the peritoneum and taken down with scissors and cautery. Small bowel was noted in a hernia just below the umbilicus. The bowel was gently dissected away from the peritoneum using scissors and cuatery. Once released from the peritoneum it was gently pulled out of the hernia sac. The bowel was dilated, thick, and dark purple. The bowel proximal was dilated. The bowel distal was decompressed. Using a hemostat a small window was made under the bowel wall 1 inch proximal to the thickened bowel. Using a straight 80 mm linear stapler the bowel was transected. The same thing was done 1 inch distal to the thickened bowel. The mesentery was then transected using a ligasure. The resected bowel measured 36 cm. The specimen was marked with a suture on the proximal end and removed from the operating table and placed in formalin. The fluid was milked from the small bowel towards the stomach to be removed by the NG. The 2 bowel ends were then attached side to side and secured with silk suture. A small enterotomy was made in both ends and using the linear stapler a side to side anastamosis was created. The enterotomy was then closed in 2 layers with 4-0 vicryl and 2-0 silk. The mesenteric defect was closed with 2-0 Vicryl running sutures. Next the small bowel was run from the ligament of treitz to the cecum. No other areas of ischemia were identified. No serosal tears or enterotomies were noted. The small bowel was placed back into the abdomen and the abdomen was irrigated with 2 L of warm NS. Once all the fluid was suctioned out the liver was palpated. The liver felt smooth. No lesions were palpated. The stomach was then palpated and the tip of the NG was noted just past the GE junction. I asked anesthesia to advance it until it was in the mid stomach. The NG was then secured by anesthesia to his Nose. Next the fascial defects were closed primarily with 1-0 Vicryl suture. The subcutaneous tissue was dissected away from the fascia with cuatery in order to better identify all the defects and close them. 2 hernia sacs were identified with omentum in it. The omentum was resected and removed. A sponge, instrument and needle count was done and was correct at this point and the fascia was re-approximated using three 1-0 Vicryl running sutures. The subcutaneus tissue was irrigated and a wound vac was then placed. The wound measured 21 cm long x 5 cm wide x 2.5 cm deep. There were 3 cm of undermining on both sides. Instruments, sponge and needle counts were correct at the end of the case. The patients abdomen was cleaned and dried. He was then woken up, extubated and taken back to PACU in stable but critical condition. Patient did need to be on levophed throughout the case. he was weaned off in PACU. cc: DANG MONTES, CAROLYN CAUSEY NP,[place] Dictated by: HUMBERTO CHACON MD-MARIEDictated: 08/23/19Time: 1656 <Electronically signed by Humberto Chacon M.D.> Date: 08/23/191741 Home Meds and New Rx's Prescriptions: No Action lisinopril-hydrochlorothiazide 20-25 mg tablet 1 tab PO DAILY RF: 0 DS: Summary Status at Discharge Functional status at discharge: bed bound Overall status at discharge: patient is back to baseline Mental Status: mental status grossly normal Speech and Movement: speech and movement normal Mood: anxious mood Affect: normal affect Exam Const General: cooperative, healthy appearing, comfortable, no acute distress, well developed and well groomed Nutritional Appearance: average body habitus and well nourished Orientation: alert, awake and oriented x3 [facility] Head: normal to inspection, normocephalic and atraumatic Ears: hearing grossly normal bilaterally and external ears normal General nose exam: external nose normal Face and sinus: normal facial exam and sinuses nontender Mouth: oral mucosae normal, lip normal, tongue normal and moist mucous membranes Teeth and gingiva: dentition normal Eyes General: appearance normal, both eyes and all related structures Conjunctivae: conjunctivae normal Sclera: sclerae normal Pupils: PERRL Neck Neck: normal visual inspection and full ROM Chest Chest: normal inspection of the chest Resp Effort & Inspection: normal respiratory effort, able to speak in complete sentences, no cough, no nasal flaring, not tachypneic and no use of accessory muscles Auscultation: clear to auscultation bilaterally, no rales, no rhonchi and no wheezes Cardio Jugular venous pressure: no JVD Rate: regular rate Rhythm: regular rhythm GI Inspection: no edema and distended (mild) Palpation: no masses, nontender and No ascites Other: skin was left open after the surgery. Fascia was closed. There is a housing inspectors of surgicel over the fascia. Wound edges are clean and no necrosis. There is continued ooze, but no discrete bleeders at this time. He is still able to form clots. He does have a few BS. Pain is controlled w/ epidural. Back/Spine/Pelvis Other: Epidural in place. He continues to have bleeding from this. compression dressing is applied. Skin General skin exam: no rashes or lesions noted Trauma: no lacerations or abrasions Neuro General: alert, oriented x3, oriented, gait normal, moves all extremities, no focal motor deficits and CN's II-XI intact bilaterally Cognition: normal cognition Speech: speech normal Gait: normal gait Motor: muscle tone normal throughout Extrem General: normal to inspection and no clubbing, cyanosis or edema Other: moving fall ext. able to move feet- some weakness secondary to epidural. Psych Appearance: grossly normal and well kempt Mental Status: mental status grossly normal Speech and Movement: speech and movement normal Mood: anxious mood Affect: normal affect DS: Data Vitals/I&O Vitals and I&O: Vital Signs Temperature 37.4 C 08/25/19 14:15 Temperature Source Temporal Artery Scan 08/25/19 11:26 Pulse 93 H 08/25/19 14:15 Pulse 85 08/25/19 11:00 Respiratory Rate 18 08/25/19 14:15 Respiratory Effort 08/25/19 08:00 Respiratory Depth Normal 08/25/19 08:00 Respiratory Pattern Normal 08/25/19 08:00 Blood Pressure 119/69 08/25/19 14:15 Blood Pressure Mean 74 08/25/19 10:00 Blood Pressure Position Supine 08/25/19 08:00 Pulse Oximetry 97 08/25/19 14:15 Respiratory End-tidal CO2 38 08/23/19 12:45 Oxygen Delivery Method Room Air 08/25/19 14:15 Oxygen Flow Rate 0 08/25/19 14:15 Pain Level 0 08/25/19 13:49 Comment 08/23/19 16:50 Intake & Output 08/24/19 08/25/19 08/25/19 23:59 11:59 23:59 Intake Total 1600 / 3320 2960 / 3100 140 / 3100 Output Total 1500 / 2900 1000 / 1000 Balance 100 / 420 1960 / 2100 140 / 2100 Weight 130.9 kg Intake: IV 1550 / 3270 2960 / 3100 140 / 3100 Oral 50 / 50 Output: Gastric Drainage 1000 / 1550 500 / 500 Left Nare 1000 / 1550 500 / 500 Urine 500 / 1050 500 / 500 Other: Urine Color Light Chetna Dark Chetna Urine Appearance Clear Cloudy Comment pt has indweling allen cath draining clear chetna urine allen in place draining clear chetna urine. Gastric Occult Blood Left Nare Positive Negative Data Completed and Pending Labs on day of discharge: Labs from last 24 hours 08/25/19 08/25/19 08/25/19 14:00 10:55 10:55 WBC RBC Hgb Hct MCV MCH MCHC RDW Plt Count MPV Immature Gran % Neutrophils % Lymphocytes % Monocytes % Eosinophils % Basophils % Absolute Neutrophils Absolute Lymphocytes Absolute Monocytes Absolute Eosinophils Absolute Basophils Differential Comment RBC Morphology Anisocytosis PT 10.3 INR 1.0 APTT 40.8 H Fibrinogen Soluble Fibrin Monomer D-Dimer Factor VIII Activity von Willebrand Activity von Willebrand Antigen vWF Panel Interp vWF Panel Reviewed By Sodium Potassium Chloride Carbon Dioxide Anion Gap BUN Creatinine Estimated GFR/1.73 m2 Glucose Lactate Calcium Ionized Calcium Magnesium Total Bilirubin AST ALT Alkaline Phosphatase Troponin I Total Protein Albumin Procalcitonin TSH Miscellaneous Test Pending Pending Patient ABO/Rh Antibody Screen Crossmatch 08/25/19 08/25/19 08/25/19 10:55 10:55 10:55 WBC 13.72 H RBC 2.87 L Hgb 8.7 L Hct 28.1 L MCV 97.9 H MCH 30.3 MCHC 31.0 L RDW 13.5 Plt Count 139 MPV 11.5 H Immature Gran % 0.4 Neutrophils % 76.6 Lymphocytes % 9.8 Monocytes % 9.5 Eosinophils % 3.4 Basophils % 0.3 Absolute Neutrophils 10.51 H Absolute Lymphocytes 1.34 Absolute Monocytes 1.30 H Absolute Eosinophils 0.47 Absolute Basophils 0.04 Differential Comment Rbc morph reviewed RBC Morphology Normal Anisocytosis PT INR APTT Fibrinogen Soluble Fibrin Monomer D-Dimer Factor VIII Activity Cancelled von Willebrand Activity Cancelled von Willebrand Antigen Cancelled vWF Panel Interp Cancelled vWF Panel Reviewed By Cancelled Sodium Potassium Chloride Carbon Dioxide Anion Gap BUN Creatinine Estimated GFR/1.73 m2 Glucose Lactate Calcium Ionized Calcium 0.94 L Magnesium Total Bilirubin AST ALT Alkaline Phosphatase Troponin I Total Protein Albumin Procalcitonin TSH Miscellaneous Test Cancelled Patient ABO/Rh Antibody Screen Crossmatch 08/25/19 08/25/19 08/25/19 10:55 10:55 10:35 WBC RBC Hgb Hct MCV MCH MCHC RDW Plt Count MPV Immature Gran % Neutrophils % Lymphocytes % Monocytes % Eosinophils % Basophils % Absolute Neutrophils Absolute Lymphocytes Absolute Monocytes Absolute Eosinophils Absolute Basophils Differential Comment RBC Morphology Anisocytosis PT INR APTT Fibrinogen 648 H Soluble Fibrin Monomer Pending D-Dimer Factor VIII Activity von Willebrand Activity von Willebrand Antigen vWF Panel Interp vWF Panel Reviewed By Sodium Potassium Chloride Carbon Dioxide Anion Gap BUN Creatinine Estimated GFR/1.73 m2 Glucose Lactate Calcium Ionized Calcium Magnesium Total Bilirubin AST ALT Alkaline Phosphatase Troponin I Total Protein Albumin Procalcitonin TSH Miscellaneous Test Patient ABO/Rh Cancelled Antibody Screen Crossmatch 08/25/19 08/25/19 08/25/19 07:55 07:55 07:36 WBC RBC Hgb Hct MCV MCH MCHC RDW Plt Count MPV Immature Gran % Neutrophils % Lymphocytes % Monocytes % Eosinophils % Basophils % Absolute Neutrophils Absolute Lymphocytes Absolute Monocytes Absolute Eosinophils Absolute Basophils Differential Comment RBC Morphology Anisocytosis PT 10.5 INR 1.0 APTT 40.5 H Fibrinogen Soluble Fibrin Monomer D-Dimer 3723 H Factor VIII Activity von Willebrand Activity von Willebrand Antigen vWF Panel Interp vWF Panel Reviewed By Sodium Potassium Chloride Carbon Dioxide Anion Gap BUN Creatinine Estimated GFR/1.73 m2 Glucose Lactate Calcium Ionized Calcium Magnesium Total Bilirubin AST ALT Alkaline Phosphatase Troponin I Total Protein Albumin Procalcitonin TSH Miscellaneous Test Patient ABO/Rh Cancelled Antibody Screen Crossmatch 08/25/19 08/25/19 08/25/19 07:00 07:00 06:15 WBC RBC Hgb Hct MCV MCH MCHC RDW Plt Count MPV Immature Gran % Neutrophils % Lymphocytes % Monocytes % Eosinophils % Basophils % Absolute Neutrophils Absolute Lymphocytes Absolute Monocytes Absolute Eosinophils Absolute Basophils Differential Comment RBC Morphology Anisocytosis PT INR APTT Fibrinogen Soluble Fibrin Monomer D-Dimer Factor VIII Activity von Willebrand Activity von Willebrand Antigen vWF Panel Interp vWF Panel Reviewed By Sodium 138 Potassium 3.5 Chloride 103 Carbon Dioxide 30.2 Anion Gap 4.8 BUN 17 Creatinine 1.05 Estimated GFR/1.73 m2 >= 60.00 Glucose 105 Lactate 0.7 Calcium 7.1 L Ionized Calcium Magnesium 2.3 Total Bilirubin 0.5 AST 22 ALT 16 Alkaline Phosphatase 57 Troponin I < 0.05 Total Protein 4.9 L Albumin 2.0 L Procalcitonin 0.9 TSH Miscellaneous Test Patient ABO/Rh Antibody Screen Crossmatch 08/25/19 08/25/19 08/25/19 06:15 06:15 00:10 WBC 13.17 H RBC 2.89 L Hgb 8.9 L D Hct 28.1 L MCV 97.2 H MCH 30.8 MCHC 31.7 L RDW 13.3 Plt Count 119 L MPV 12.4 H Immature Gran % 0.3 Neutrophils % 76.8 Lymphocytes % 8.6 Monocytes % 11.1 Eosinophils % 2.9 Basophils % 0.3 Absolute Neutrophils 10.11 H Absolute Lymphocytes 1.13 L Absolute Monocytes 1.46 H Absolute Eosinophils 0.38 Absolute Basophils 0.04 Differential Comment Rbc morph reviewed RBC Morphology See below Anisocytosis 1+ PT INR APTT Fibrinogen Soluble Fibrin Monomer D-Dimer Factor VIII Activity von Willebrand Activity von Willebrand Antigen vWF Panel Interp vWF Panel Reviewed By Sodium Cancelled 138 Potassium Cancelled 3.4 L Chloride Cancelled 102 Carbon Dioxide Cancelled 32.2 H Anion Gap Cancelled 3.8 BUN Cancelled Creatinine Cancelled Estimated GFR/1.73 m2 Cancelled Glucose Cancelled Lactate Calcium Cancelled Ionized Calcium Magnesium Cancelled 2.0 Total Bilirubin AST ALT Alkaline Phosphatase Troponin I < 0.05 Total Protein Albumin Procalcitonin TSH 1.13 Miscellaneous Test Patient ABO/Rh Antibody Screen Crossmatch 08/23/19 07:28 WBC RBC Hgb Hct MCV MCH MCHC RDW Plt Count MPV Immature Gran % Neutrophils % Lymphocytes % Monocytes % Eosinophils % Basophils % Absolute Neutrophils Absolute Lymphocytes Absolute Monocytes Absolute Eosinophils Absolute Basophils Differential Comment RBC Morphology Anisocytosis PT INR APTT Fibrinogen Soluble Fibrin Monomer D-Dimer Factor VIII Activity von Willebrand Activity von Willebrand Antigen vWF Panel Interp vWF Panel Reviewed By Sodium Potassium Chloride Carbon Dioxide Anion Gap BUN Creatinine Estimated GFR/1.73 m2 Glucose Lactate Calcium Ionized Calcium Magnesium Total Bilirubin AST ALT Alkaline Phosphatase Troponin I Total Protein Albumin Procalcitonin TSH Miscellaneous Test Patient ABO/Rh A Positive Antibody Screen Negative Crossmatch See Detail [facility] Medical History (Updated 08/25/19 @ 16:02 by Shanthi Vick DO) Elevated partial thromboplastin time (PTT) (Acute) GERD without esophagitis (Chronic) Hernia of abdominal wall (Chronic) Hypertension (Chronic) Ventricular tachycardia seen on diagnostic cardiac sonographer (Acute) Surgical History (Updated 08/25/19 @ 16:02 by Shanthi Vick DO) S/P appendectomy (Acute) S/P exploratory laparotomy (Acute) S/P small bowel resection (Acute) Social History Smoking/Tobacco Use Status: Never Alcohol Intake: never Drug use: Never Substance use type: does not use Household members: significant other and children Do you feel safe at home: Yes Do you feel safe in your relationship?: Yes
== END 2019-08-25 21:00 | disposition short-term general hospital (02) | DRG 329 ==
LOC: ER 07:43 → SUR 07:45 → ICU 13:47
PROVIDERS: Surgery; Admitting Provider Surgery; Emergency Provider Emergency Medicine; PCP Nurse Practitioner Family; Visit Provider Surgery
PROC: 0DBB0ZZ Excision of Ileum, Open Approach (ICD-10-PCS; CPT 44140; principal; 2019-08-23 07:30)
DX: K43.0 Incisional hernia with obstruction, without gangrene (principal); K55.011 Focal (segmental) acute (reversible) ischemia of small intestine; I47.2 Ventricular tachycardia; Z68.41 Body mass index [BMI] 40.0-44.9, adult; K66.0 Peritoneal adhesions (postprocedural) (postinfection); D69.9 Hemorrhagic condition, unspecified; R79.1 Abnormal coagulation profile; E87.6 Hypokalemia; K21.9 Gastro-esophageal reflux disease without esophagitis; I10 Essential (primary) hypertension; R55 Syncope and collapse; F32.9 Major depressive disorder, single episode, unspecified; F41.1 Generalized anxiety disorder; F43.0 Acute stress reaction; E66.01 Morbid (severe) obesity due to excess calories; G47.33 Obstructive sleep apnea (adult) (pediatric); E83.42 Hypomagnesemia
CPT/HCPCS: 44120; 49561; 36415; 36430; 76942; 80048; 80051; 80053; 82805; 83690; 84145; 85240; 85245; 85246; 85290; 85366; 85384; 86850; 86900; 86901; 86920; 93005; 96360; 99223; 99254; 99285; 99291; J1650; NC; 36600; 74177; 82330; 83605; 83735; 84443; 84484; 85014; 85018; 85025; 85247; 85379; 85610; 85730; 88307; 93010; 93306; 99222; J0131; J0744; J1100; J1200; J1885; J2250; J2405; J3010; J3475; J3480; J3490; P9016; Q9967

== ENCOUNTER 2019-09-21 14:06 | Emergency (ER) | payer MEDICAID, SELFPAY ==
[2019-09-21] VITALS (37 sets, daily range): BP systolic 163–187; BP diastolic 89–106; PULSE 120–132; RESP 23–37; TEMP 37–37.3; O2SAT 76–99
--- NOTE | 2019-09-21 14:34 | W.ED.GENAD ---
Discharge Plan Disposition Patient Disposition: GUERITA ROBBINS ([facility]) Condition: Serious Discharge Details Chief Complaint: Fever Clinical Impression: Pleural effusion Primary Care Provider: Jhonny Causey ED Provider: Romulo Godoy Home Meds and New Rx's Prescriptions: No Action acetaminophen 500 mg capsule 1,000 mg PO Q6H PRNRF: 0 pantoprazole 40 mg tablet,delayed release (DR/EC) 40 mg PO BID RF: 0 lisinopril-hydrochlorothiazide 20-25 mg tablet 1 tab PO DAILY RF: 0 Discharge Data Discharge Date/Time-TO BE ENTERED AT DEPARTURE: 09/21/19 18:40 Medical Decision Making 14:50 --44-year-old male with history of hernia repair approximately 2 weeks ago, complicated by postoperative bleeding, diagnosed with bleeding disorder, here with fatigue today, intermittent shortness of breath and fever today. Patient did have subtle cough yesterday. Consider pneumonia. Patient is tachycardic and hypoxic on arrival. Consider acute pulmonary embolism. Plan to obtain CT of the chest. Given recent significant surgery and fever, consider intra-abdominal source for infection. Plan to obtain CT of the pelvis. We will check labs including lactate and blood cultures. Plan to give IV fluid bolus. Discharge summary from outside hospital [facility] requested. Screening ECG was reviewed and interpreted by me: Sinus tachycardia 132 bpm, normal axis, nondiagnostic. 15:32 --CT of the chest interpreted by radiology: Large left pleural effusion with significant atelectasis, no pulmonary embolism although study with motion artifact. CT the abdomen pelvis interpreted by radiology on postoperative changes, surgical drain in place, question hernia small loop of bowel, no significant fluid collection. Labs reviewed and leukocytosis noted. Normal lactate. Normal BNP and troponin. Unclear etiology for pleural effusion. Consider associated pneumonia versus empyema given fever. Patient has listed penicillin and allergy. Plan to start Levaquin 750 IV. Surgery to be consulted. 15:38 -- Spoke with Dr. Paris regarding ED presentation and course, she recommends transfer to [facility] given procedural bleed risk and potential need for platelets, current platelet shortage. I called [facility] transfer center and requested transfer. Images being sent to [facility] as requested. Dr. Paris at bedside. Patient reassessed and remains tachycardic. Will give 1L additional IV fluid bolus. 16:57 --I spoke with Dr. Paris at [facility], we discussed ED presentation and course including diagnostics, he will accept the patient in transfer. Patient be transferred from ED to ED. HPI General Mode of arrival: ambulatory. Date/Time Provider Initiated Documentation: 09/21/19 14:09. Limitations to Documentation: no limitations. Information obtained by: patient. HPI Narrative: 44-year-old male with history of recent abdominal hernia repair approximately 2 weeks ago, bleeding disorder, here with chief complaint of fatigue. Patient notes he has felt fatigued since this morning. Symptoms are moderate. He notes associated fever today. Patient does state that he has had some shortness of breath and had minimal cough last night. Denies leg swelling or calf pain. No abdominal pain. No chest pain. No urinary symptoms. Patient states abdominal wound has been healing. Related Data Home Medications Medication Instructions Recorded Confirmed lisinopril-hydrochlorothiazide 1 tab PO DAILY 08/23/19 09/21/19 acetaminophen 500 mg capsule 1,000 mg PO Q6H PRN cap 09/14/19 09/21/19 pantoprazole 40 mg tablet,delayed 40 mg PO BID tab 09/14/19 09/21/19 release Allergies Allergy/AdvReac Type Severity Reaction Status Date / Time Penicillins Allergy Intermediate Skin Rash Verified 09/21/19 14:15 Sulfa (Sulfonamide Allergy Intermediate Skin Rash Verified 09/21/19 14:15 Antibiotics) General Stated Complaint: Fever ALESHA: 2 Review of Systems All systems reviewed & are unremarkable except as noted in HPI and below Constitutional Constitutional: Reports as per HPI, Reports fatigue and Reports fever(s) Cardiovascular Cardiovascular: Denies chest pain and Reports dyspnea Respiratory Respiratory: Reports dyspnea Gastrointestinal Gastrointestinal: Denies abdominal pain Endocrine Endocrine: Reports fatigue [facility] Medical History Anxiety about health (Acute) Congenital platelet function defects (Acute) Depression (Inactive) GERD without esophagitis (Resolved) Hernia of abdominal wall (Resolved) Hypertension (Resolved) Lumbar strain (Inactive) Nonsustained paroxysmal ventricular tachycardia (Inactive) Obesity, morbid, BMI 40.0-49.9 (Inactive) Obstructive sleep apnea (Resolved) Tendency toward bleeding easily (Inactive) Thoracic myofascial strain (Inactive) Surgical History S/P appendectomy (Acute) S/P exploratory laparotomy (Acute ~08/23/19) S/P small bowel resection (Inactive ~08/23/19) S/P vein stripping (Acute) Family History Paternal Uncle Cancer unknown type of cancer; was a smoker Other Heart disease Hypertension Social History Smoking/Tobacco Use Status: Never Alcohol Intake: never Drug use: Never Substance use type: does not use Household members: significant other and children Do you feel safe at home: Yes Do you feel safe in your relationship?: Yes Exam Const General: cooperative and no acute distress HENMT Mouth: moist mucous membranes Eyes Conjunctivae: normal conjunctivae Sclera: normal sclerae Neck Neck: trachea midline and supple Resp Auscultation: clear to auscultation bilaterally, diminished lung sounds on the left in the lower lung thompson, no rales, no rhonchi and no wheezes Cardio Jugular venous pressure: no JVD Rate: tachycardic Rhythm: regular rhythm GI Palpation: soft, not firm, no guarding, no masses, not rigid and nontender Other: Midline abdominal wound with wound VAC without erythema or discharge Skin General skin exam: no rashes or lesions noted Neuro General: alert, awake, oriented x3 and tone normal Extrem General: no calf tenderness bilaterally and no edema Psych Appearance: grossly normal Course Vital Signs Vital signs: Vital Signs Temperature 37.3 C 09/21/19 14:07 Pulse 128 H 09/21/19 14:07 Respiratory Rate 32 H 09/21/19 14:07 Blood Pressure 185/106 H 09/21/19 14:07 Pulse Oximetry 94 L 09/21/19 14:07 Temperature 37.3 C 09/21/19 14:07 Temperature Source Oral 09/21/19 14:07 Pulse 128 H 09/21/19 14:07 Respiratory Rate 32 H 09/21/19 14:07 Respiratory Effort 09/21/19 14:14 Blood Pressure 185/106 H 09/21/19 14:07 Blood Pressure Position Supine 09/21/19 14:07 Pulse Oximetry 94 L 09/21/19 14:07 Oxygen Delivery Method Room Air 09/21/19 14:07 Oxygen Flow Rate 0 09/21/19 14:07 Pain Level 0 09/21/19 14:07 Lab/Test Results Lab/Test Results: 09/21/19 14:19 Blood Blood Culture - Pending 09/21/19 14:19 Blood Blood Culture - Pending
[2019-09-21 14:40] LABS: Lactate 1.2 mmol/L (0.6-1.4)
[2019-09-21] MEDS: Omnipaque 350 MG/ML 100 ML BTL IJ (14:42)
[2019-09-21 14:45] LABS: Abs Immature Grans 0.03 k/cumm (0.0-0.09); Absolute Basophil Count 0.05 k/cumm (0.0-0.2); Absolute Eosinophil Count 0.07 k/cumm (0.0-0.7); Absolute Lymphocyte Count 1.58 k/cumm (1.2-3.4); Basophils % 0.4; Eosinophils % 0.5; HCT 33.9 % (40.0-50.0); HGB 10.1 g/dL (13.5-17.5); Immature Grans % 0.2; Lymphocytes % 11.9; Mean Corp. HGB Concentration 29.8 g/dL (32.0-36.0); Mean Corpuscular Volume 87.1 fL (80-95); Mean Platelet Volume 11.3 fL (8.0-11.0); Monocytes % 11.1; Neutrophils % 75.9; RBC 3.89 m/cumm (4.50-6.00); RBC Distribution Width 16.4 % (11.8-14.1); White Blood Cell Count 13.28 k/cumm (4.4-10.8)
[2019-09-21 14:47] LABS: Absolute Monocyte Count 1.47 k/cumm (0.11-0.7); Absolute Neutrophil Count 10.08 k/cumm (1.2-6.7)
[2019-09-21 14:57] LABS: Platelet Count 395 x1000/uL (130-400)
[2019-09-21 14:58] LABS: Anisocytosis 1+; Diff Comment PLT Morph Reviewed; Hypochromasia 1+; INR 1.1 (0.9-1.1); PTT Activated 42.7 sec (21.0-31.4); Poikilocytes 1+; Polychromasia Present; Prothrombin Time 10.9 sec (9.3-11.0)
[2019-09-21] MEDS: Omnipaque 350 MG/ML 50 ML BTL 25 ML IJ (14:58)
--- NOTE | 2019-09-21 15:00 | DI.CT_ITS ---
EXAM: CT CHEST PE ABD AND PELVIS W CLINICAL HISTORY: POSTOP, SOB, TACHYCARDIA TECHNIQUE: PE chest CT followed by abdomen and pelvic CT. IV contrast, no oral contrast. COMPARISON: CT ABDOMEN PELVIS W from 08/23/2019 FINDINGS: PE CHEST CT: Exam is limited by respiratory motion. The patient was unable to hold his breath. Ther e is a large left pleural effusion and significant adjacent compressive atelectasis. There is mild a telectasis at the right lung base. No right pleural effusion is seen. No pulmonary emboli are visib le. There is no evidence of aortic dissection. There is no pleural effusion. The lungs are not wel l evaluated due to motion. There is no focal infiltrate. There is no pneumothorax. ABDOMEN AND PELVIC CT: Patient is status post hernia repair since the previous exam. There is increa sed density in the anterior midline subcutaneous fat and a drain in place. This area is limited by m otion. There is a question of a small amount of small bowel herniating to the right of the umbilicus . There is no evidence of bowel obstruction. There is some gaseous distention of the colon. The li cecilia, gallbladder, spleen, pancreas, adrenals, kidneys and urinary bladder are unremarkable. There is no free air or free fluid. IMPRESSION: 1. Large left pleural effusion and adjacent compressive atelectasis. No pulmonary emboli. 2. Postsurgical change in the periumbilical region. Question of a nonobstructed loop of small bowel herniating to the right of the umbilicus.
[2019-09-21 15:06] LABS: ALT 17 U/L (16-63); AST 19 U/L (15-37); Albumin 3.2 g/dL (3.4-5.0); Alkaline Phosphatase 111 U/L (46-116); Anion Gap 9.4 mmol/L (3-11); BUN 12 mg/dL (7-18); Bilirubin, Total 1.3 mg/dL (0.2-1.0); CO2 29.6 mmol/L (21.0-32.0); CREATININE 0.93 mg/dL (0.70-1.30); Calcium 8.8 mg/dL (8.5-10.1); Chloride 101 mmol/L (98-107); Glucose 108 mg/dL (74-106); NT-proBNP 40 pg/mL (<300); Potassium 3.9 mmol/L (3.5-5.1); Sodium 140 mmol/L (136-145); Total Protein 7.9 g/dL (6.4-8.2)
[2019-09-21 15:11] LABS: Troponin I < 0.05 ng/Ml (<0.06)
[2019-09-21] MEDS: Lactated Ringers 1,000 ML 1000 ML IV ×2 (15:43→17:00)
[2019-09-21] MEDS: levoFLOXacin 750 MG/150 ML BAG 100 MG IVPB (15:44)
--- NOTE | 2019-09-21 16:06 | NUR.NOTE ---
nolan and wound vac changed by Dr Paris at the bed side Nursing Note:
--- NOTE | 2019-09-21 16:18 | SCONE_ITS ---
Date of service: 09/21/19 Time of Service: 16:18 Assessment and Plan Assessment and plan (1) Open wound anterior abdominal wall: Status: Acute Assessment and plan: A\\ Open abdominal wound with wound vac in place. No signs of infection P\\ Continue wound vac therapy Qualifiers: Encounter type: subsequent encounter Qualified Code(s): S31.109D - Unspecified open wound of abdominal wall, unspecified quadrant without penetration into peritoneal cavity, subsequent encounter (2) Congenital platelet function defects: Status: Acute Assessment and plan: A\\ PTT elevated Concern for bleeding during or after thoracenthesis especially because we have no platelets (3) Pleural effusion, left: Status: Acute Assessment and plan: A\\ New Pleural effusion ? occult pneumonia P\\ Patient would benefit from Thoracenthesis I am concerned about bleeding due to his PLT dysfunction. We have no PLTs to transfuse if he were to bleed. Dr. Godoy is attempting transfer to [facility] (4) Leukocytosis: Status: Acute Assessment and plan: A\\ Leukocytosis which is new ? pneumonia Qualifiers: Leukocytosis type: lymphocytosis Qualified Code(s): D72.820 - Lymphocytosis (symptomatic) History of Present Illness History of Present Illness Chief Complaint: Fevers and shortness of breath Narrative: Cristi came to the ER today because of increased weakness and shortness of breath. His wound vac was changed on Thursday and there were no concerns raised by Home Health. He was hypertensive and tachycardic on admission. BP is down but he is still tachycardic. Workup revealed a Leukocytosis, Hgb is better then on discharge from [facility] at 10.2, PlTs are within normal range. PTT is elevated. CT scan reveals a large left pleural effusion. CT scan of abdomen no abscess. Consults Consult date: 09/21/19 Requesting physician: Romulo Godoy Review of Systems Constitutional Constitutional: Reports fatigue, Reports fever(s), Reports weakness and Denies weight loss Eyes Eyes: Denies change in vision Cardiovascular Cardiovascular: Denies chest pain, Denies chest pain at rest, Denies rapid heart rate, Denies irregular heart rhythm, Denies palpitations, Reports dyspnea and Reports dyspnea on exertion Respiratory Respiratory: Denies chest congestion, Denies cough, Reports dyspnea and Reports dyspnea on exertion Gastrointestinal Gastrointestinal: Reports as per HPI, Denies change in bowel habits, Denies dyspepsia and Denies heartburn Genitourinary Genitourinary: Denies hematuria and Denies dysuria Neurologic Neurologic: Reports weakness Endocrine Endocrine: Reports fatigue and Denies palpitations PFSH Medical History Anxiety about health (Acute) Congenital platelet function defects (Acute) Depression (Inactive) GERD without esophagitis (Resolved) Hernia of abdominal wall (Resolved) Hypertension (Resolved) Lumbar strain (Inactive) Nonsustained paroxysmal ventricular tachycardia (Inactive) Obesity, morbid, BMI 40.0-49.9 (Inactive) Obstructive sleep apnea (Resolved) Tendency toward bleeding easily (Inactive) Thoracic myofascial strain (Inactive) Surgical History S/P appendectomy (Acute) S/P exploratory laparotomy (Acute ~08/23/19) S/P small bowel resection (Inactive ~08/23/19) S/P vein stripping (Acute) Family History Paternal Uncle Cancer unknown type of cancer; was a smoker Other Heart disease Hypertension Social History Smoking/Tobacco Use Status: Never Alcohol Intake: never Drug use: Never Substance use type: does not use Household members: significant other and children Do you feel safe at home: Yes Do you feel safe in your relationship?: Yes Exam Const General: cooperative, comfortable and no acute distress Orientation: alert and oriented x3 HENMT Head: normocephalic and atraumatic Resp Effort & Inspection: labored Auscultation: diminished lung sounds on the left in the lower lung thompson Cardio Rate: tachycardic Rhythm: regular rhythm GI Other: Wound vac removed. Wound looks clean. There is old blood noted at the bottom of the wound. No purulent discharge noted. New wound vac placed at 75 of suction Results Last Vital Signs Temp 98.7 F 09/21/19 16:14 Pulse 125 H 09/21/19 16:14 Resp 25 H 09/21/19 16:14 BP 167/89 H 09/21/19 16:14 Pulse Ox 98 09/21/19 16:14 Labs Result diagrams: 09/21/19 14:35 09/21/19 14:35 Labs: Laboratory Results - last 24 hr 09/21/19 09/21/19 09/21/19 14:35 14:35 14:35 WBC 13.28 H RBC 3.89 L Hgb 10.1 L Hct 33.9 L MCV 87.1 MCH 26.0 L MCHC 29.8 L RDW 16.4 H Plt Count 395 D MPV 11.3 H Immature Gran % 0.2 Neutrophils % 75.9 Lymphocytes % 11.9 Monocytes % 11.1 Eosinophils % 0.5 Basophils % 0.4 Absolute Neutrophils 10.08 H Absolute Lymphocytes 1.58 Absolute Monocytes 1.47 H Absolute Eosinophils 0.07 Absolute Basophils 0.05 Differential Comment Plt morph reviewed RBC Morphology See below Polychromasia Present Hypochromasia 1+ Poikilocytosis 1+ Anisocytosis 1+ PT 10.9 INR 1.1 APTT 42.7 H Sodium 140 Potassium 3.9 Chloride 101 Carbon Dioxide 29.6 Anion Gap 9.4 BUN 12 Creatinine 0.93 Estimated GFR/1.73 m2 >= 60.00 Glucose 108 H Lactate Calcium 8.8 Total Bilirubin 1.3 H AST 19 ALT 17 Alkaline Phosphatase 111 Troponin I < 0.05 NT-Pro-B Natriuret Pep 40 Total Protein 7.9 Albumin 3.2 L 09/21/19 09/21/19 14:35 15:16 WBC RBC Hgb Hct MCV MCH MCHC RDW Plt Count MPV Immature Gran % Neutrophils % Lymphocytes % Monocytes % Eosinophils % Basophils % Absolute Neutrophils Absolute Lymphocytes Absolute Monocytes Absolute Eosinophils Absolute Basophils Differential Comment RBC Morphology Polychromasia Hypochromasia Poikilocytosis Anisocytosis PT INR APTT Sodium Potassium Chloride Carbon Dioxide Anion Gap BUN Creatinine Estimated GFR/1.73 m2 Glucose Lactate 1.2 Calcium Total Bilirubin AST ALT Alkaline Phosphatase Troponin I Cancelled NT-Pro-B Natriuret Pep Total Protein Albumin
== END 2019-09-21 18:40 | disposition short-term general hospital (02) ==
LOC: ER 14:56
PROVIDERS: Emergency Provider Student in an Organized Health Care Education/Training Program; PCP Nurse Practitioner Family
DX: J90 Pleural effusion, not elsewhere classified (principal); R09.02 Hypoxemia; R53.83 Other fatigue; R50.9 Fever, unspecified; R00.0 Tachycardia, unspecified; I10 Essential (primary) hypertension
CPT/HCPCS: 36415; 71275; 74177; 80053; 87040; 93005; 96361; 96365; 99253; 99285; 83605; 83880; 84484; 85025; 85610; 85730; 93010; J1956; J3490; Q9967

== ENCOUNTER 2020-03-08 03:56 | Outpatient (CLI) | payer MEDICAID, SELFPAY ==
[2020-03-08 14:00] LABS: HGB 12.9 g/dL (13.5-17.5); Mean Corp. HGB Concentration 31.5 g/dL (32.0-36.0); Mean Corpuscular Hemoglobin 25.6 pg (27.0-33.0); Mean Corpuscular Volume 81.3 fL (80-95); Platelet Count 214 x1000/uL (130-400); RBC 5.04 m/cumm (4.50-6.00); RBC Distribution Width 19.9 % (11.8-14.1); White Blood Cell Count 10.81 k/cumm (4.4-10.8)
[2020-03-08 14:06] LABS: Hemoglobin A1C 6.2 % (3.8-5.6)
[2020-03-08 14:53] LABS: Iron 45 ug/dL (65-175); Total Iron Binding Capacity 402 ug/dL (250-450); Transferrin Sat 11 % (20-55)
[2020-03-08 15:33] LABS: ALT 28 U/L (16-63); AST 25 U/L (15-37); Albumin 3.7 g/dL (3.4-5.0); Alkaline Phosphatase 123 U/L (46-116); Anion Gap 6.9 mmol/L (3-11); BUN 14 mg/dL (7-18); Bilirubin, Total 0.8 mg/dL (0.2-1.0); CO2 32.1 mmol/L (21.0-32.0); CREATININE 1.02 mg/dL (0.70-1.30); Calcium 8.6 mg/dL (8.5-10.1); Chloride 100 mmol/L (98-107); Glucose 131 mg/dL (74-106); Potassium 3.9 mmol/L (3.5-5.1); Sodium 139 mmol/L (136-145); Vitamin B12 267 pg/mL (193-986)
[2020-03-09 12:51] LABS: HIV-1/2 Ag & Ab Screen Negative (Negative); Hepatitis C Ab w Rflx HCV PCR Negative (Negative)
== END 2020-03-08 04:16 ==
PROVIDERS: PCP Nurse Practitioner Family; Visit Provider Family Medicine
DX: D64.9 Anemia, unspecified (principal); D69.1 Qualitative platelet defects; Z11.4 Encounter for screening for human immunodeficiency virus [HIV]; Z11.59 Encounter for screening for other viral diseases; Z13.1 Encounter for screening for diabetes mellitus; I10 Essential (primary) hypertension
CPT/HCPCS: 36415; 80053; 85027; 86803; 87389; 82607; 83036; 83540; 83550

== ENCOUNTER 2020-04-17 09:27 | Emergency (ER) | payer MEDICAID, SELFPAY ==
--- NOTE | 2020-04-17 09:30 | W.ED.GENAD ---
Discharge Plan Disposition Patient Disposition: HOME Condition: Stable Discharge Details Chief Complaint: Orthopedic Clinical Impression: Left thigh pain Primary Care Provider: Jhonny Causey ED Provider: Angelina Godoy Home Meds and New Rx's Prescriptions: Continued acetaminophen 500 mg capsule 1,000 mg PO Q6H PRNRF: 0 lisinopril-hydrochlorothiazide 20-25 mg tablet 1 tab PO DAILY RF: 0 ferrous sulfate 325 mg (65 mg iron) Tablet 325 mg PO DAILY RF: 0 Discharge Instructions Instructions: Leg Pain (ED) Additional Instructions: Please return immediately to the emergency department if you develop any new or worsening symptoms, if your condition does not improve as expected, or if you become otherwise concerned. It is extremely important that you call soon as possible to make an appointment to be seen in follow-up for this visit by your primary care doctor. Stand Alone Forms: Work Release Referrals: Jhonny Causey, [employer] [Primary Care Provider] - Medical Decision Making Cristi Barillas is a 44-year-old man with a history of hypertension, congenital platelet function disorder who presented to the emergency department with acute on chronic intermittent left lateral thigh pain, typical in location and quality but worse in severity today. On exam patient is very well and nontoxic-appearing. Full painless range of motion left hip and left knee. There is mild tenderness palpation over the left lateral thigh without overlying skin changes, no crepitus. No posterior calf tenderness palpation, +1 lower extremity edema which patient reports is at baseline. No popliteal tenderness palpation bilaterally. Several varicose veins bilateral lower legs noted. Unclear etiology of pain, concern for varicose veins versus DVT versus neuropathic pain versus other. Exam/history is not consistent with myositis, necrotizing fasciitis, other infectious etiology, bony pathology. Plan for ultrasound. Ultrasound reported as negative. Medical screening exam negative for acute emergent medical condition. Plan for discharge to home with outpatient follow-up. I had a lengthy discussion with Patient regarding return to emergency department precautions, home care, and importance of outpatient follow-up. Pt verbalizes understanding of the plan and is amenable. Patient discharged to home with clear plan for outpatient follow-up. All questions were answered. Disposition decision was made weighing the risks and benefits of hospitalization versus outpatient treatment, the risk for further decompensation, and the patient's wishes. Medical Records Medical records reviewed: Yes I reviewed the patient's medical records. Imaging Data Radiologic Study: Attestation: I personally reviewed and interpreted this imaging study as follows: Radiologist's impression: EXAM: US LOWER EXTREMITY VENOUS LT CLINICAL HISTORY: thigh pain. TECHNIQUE: Ultrasound performed using standard protocol. COMPARISON: US US OR ANESTHESIA from 08/25/2019 FINDINGS: Duplex venous ultrasound was performed according to the usual protocol. The deep veins are freely compressible throughout and there is normal flow augmentation with manual calf compression. 2D and Doppler evaluation are unremarkable. IMPRESSION: No evidence of deep venous thrombosis of the left lower extremity HPI General Mode of arrival: ambulatory. Date/Time Provider Initiated Documentation: 04/17/20 09:29. Limitations to Documentation: no limitations. Information obtained by: patient. HPI Narrative: Cristi Barillas is a 44-year-old man with a history of hypertension, congenital platelet function defect presenting to the emergency department with left lateral thigh pain. Patient reports that over the past year he has been having intermittent sharp pain in his left lateral thigh. Patient reports that when this occurs it does seem to be worse with standing. Patient reports that same pain occurred today. Patient reports that he has been standing for long hours at work recently, which he thinks has been exacerbating the pain. Patient noticed pain this morning for the first time in several days. He reports that it is the same location and quality as usual, but worse severity than usual. Located in the left lateral thigh, sharp. Patient reports that he also has a sensation of numbness, like Novocain in that area that usually accompanies pain and is occurring now. He denies any other pain, any other numbness, any weakness, shortness of breath, cough, vomiting, diarrhea. Patient reports that he feels otherwise in his usual state of health, has been eating and drinking as usual. He denies any trauma or other known inciting event. No recent immobilization or travel. Patient reports that he has a history of varicose veins, and has been told in the past by his PCP that his pain is secondary to varicose veins. Related Data Home Medications Medication Instructions Recorded Confirmed lisinopril-hydrochlorothiazide 1 tab PO DAILY 08/23/19 04/17/20 acetaminophen 500 mg capsule 1,000 mg PO Q6H PRN cap 09/14/19 04/17/20 ferrous sulfate 325 mg PO DAILY 04/17/20 04/17/20 Allergies Allergy/AdvReac Type Severity Reaction Status Date / Time Penicillins Allergy Intermediate Skin Rash Verified 04/17/20 09:35 Sulfa (Sulfonamide Allergy Intermediate Skin Rash Verified 04/17/20 09:35 Antibiotics) General ALESHA: 2 Review of Systems Narrative: Constitutional: denies fevers Eyes: denies eye pain ENT: denies ear pain, dental pain, sore throat Cardiovascular: denies chest pain Respiratory: denies SOB, cough GI: denies abdominal pain, vomiting, diarrhea : denies flank pain MSK: denies back pain, neck pain, arthralgias, reports left lateral thigh pain Skin: denies rash Neuro: denies headaches, numbness, weakness COUNT INCLUDES [facility] Medical History Anxiety about health (Acute) Congenital platelet function defects (Acute) Depression (Inactive) GERD without esophagitis (Resolved) Hernia of abdominal wall (Resolved) Hypertension (Acute) Lumbar strain (Inactive) Nonsustained paroxysmal ventricular tachycardia (Inactive) Obesity, morbid, BMI 40.0-49.9 (Inactive) Obstructive sleep apnea (Resolved) Tendency toward bleeding easily (Inactive) Thoracic myofascial strain (Inactive) Surgical History S/P appendectomy (Acute) S/P exploratory laparotomy (Acute ~08/23/19) S/P small bowel resection (Inactive ~08/23/19) S/P vein stripping (Acute) Social History Smoking/Tobacco Use Status: Never Alcohol Intake: never Drug use: Never Substance use type: does not use Household members: significant other and children Do you feel safe at home: Yes Do you feel safe in your relationship?: Yes Exam Narrative Exam Narrative: Constitutional: well and [id number], pleasant, conversing normally HENT: head atraumatic/normocephalic/normal inspection, mucous membranes moist Eyes: conjunctiva normal, sclera normal, pupils 3mm b/l Neck: no stridor, normal ROM, trachea midline Resp: normal work of breathing Cardio: normal rate, normal rhythm Back: normal inspection, no rash Skin: warm, dry, normal color, no rash Neuro: alert, not altered, grossly non-focal, normal tone Ext: Full painless range of motion left hip and left knee. There is mild tenderness palpation over the left lateral thigh without overlying skin changes, no crepitus. No posterior calf tenderness palpation, +1 lower extremity edema which patient reports is at baseline. No popliteal tenderness palpation bilaterally. Several varicose veins bilateral lower legs noted. No erythema to bilateral lower extremities. DP pulses intact and symmetric Psych: normal mood, normal affect, normal behavior
[2020-04-17 09:31] VITALS: BP 145/81; PULSE 94; TEMP 36.5; O2SAT 96
--- NOTE | 2020-04-17 10:00 | DI.US_ITS ---
EXAM: US LOWER EXTREMITY VENOUS LT CLINICAL HISTORY: thigh pain. TECHNIQUE: Ultrasound performed using standard protocol. COMPARISON: US US OR ANESTHESIA from 08/25/2019 FINDINGS: Duplex venous ultrasound was performed according to the usual protocol. The deep veins are freely com pressible throughout and there is normal flow augmentation with manual calf compression. 2D and Doppl er evaluation are unremarkable. IMPRESSION: No evidence of deep venous thrombosis of the left lower extremity DATA REPOSITORY:
[2020-04-17 11:26] VITALS: BP 134/76; PULSE 80; RESP 16; TEMP 36.9; O2SAT 96
[2020-04-17 11:50] VITALS: BP 129/66; PULSE 80; RESP 14; TEMP 36.6; O2SAT 96
== END 2020-04-17 11:57 | disposition home or self-care (01) ==
PROVIDERS: Emergency Provider Student in an Organized Health Care Education/Training Program; PCP Nurse Practitioner Family
DX: M79.652 Pain in left thigh (principal); G89.29 Other chronic pain; I10 Essential (primary) hypertension
CPT/HCPCS: 99284; 93971; 99285

== ENCOUNTER 2020-05-04 01:41 | Outpatient (CLI) | payer MEDICAID, SELFPAY ==
--- NOTE | 2020-05-04 16:00 | NS.NUTBLAN_ITS ---
Cristi referred for Medical Nutrition Therapy for obesity, prediabetes, hyperlipidemia. 44 years of age, 5'8 273 lbs, BMI42. Labs (05/03/20): HDL:33, LDL 101, Tri, A1C: 6.2% (03/08/20). Also c/o GERD and constipation. Meds include: mirilax, Ferrous gluconate 324mg daily, lisinopril. Dx include sleep apnea, anemia, HTN, anxiety. Reports 50 lbs weight gain in last 5 years. IBW: 168-170 (BMI 24.9). He reports his lowest adult weight was 200 lbs. Met with Cristi today , he reports severe fatigue, muscle aches and pains. He reports that he sees curtain fitter that is treating his anemia. Iron supplementation causes constipation. Here today as wants to lose weight, reduce risk of getting diabetes and to feel better. Diet record indicates high carb diet, reliant on convenience foods, erratic meals, no routine exercise. Estimated Needs for weight loss: 2726-2594 kcal, 80-100g protein with 45 min exercise 5 x weekly. Goal: 5 lbs weight loss per month with goal weight of 170-200 lbs in next 2 years Cristi presents with classic metabolic syndrome with truncal obesity, hyperlipidemia, hypertension and elevated blood sugars. Discussed today importance of following well balanced lower carb diet with focus on lean protein and non starchy vegetables, eating 3 meals and 2 snacks daily and to exercise 5 times weekly. Meal plans provided, recommend walk 7 miles per week with increase in mileage or intensity as needed to support 5 lbs weight loss per month. Reviewed risks associated with hyperlipidemia, prediabetes and hypertension. Very motivated to make changes as feels very fatigued with extra weight at this time. Mirilax causes gas and bloating, recommend citrucel for non gassy bowel regularity. Plan: 1. follow lower carb, high protein weight loss diet provided, follow up on [employer] [facility] as food journal/diet analysis 2. walk 7 miles per week 3. switch from mirilax to citrucel for routine BM while taking FeS04 4. follow up appt. 05/24/20 @1 pm.
== END 2020-05-04 02:01 ==
PROVIDERS: PCP Nurse Practitioner Family; Visit Provider Dietitian, Registered
DX: R73.03 Prediabetes (principal); E78.5 Hyperlipidemia, unspecified; E66.9 Obesity, unspecified; Z71.3 Dietary counseling and surveillance
CPT/HCPCS: 97802

== ENCOUNTER 2020-05-24 12:46 | Outpatient (CLI) | payer MEDICAID, SELFPAY ==
--- NOTE | 2020-05-24 13:00 | NS.NUTBLAN_ITS ---
Cristi returns for second visit for MNT for obesity, prediabetes, hyperlipidemia. No recent labs. Wt: 273 lbs, no change from last month. Cristi reports he has been stress eating and been unable to follow meal plan we reviewed at recent visit. He has, however, been walking 1 mile daily- 7 miles daily. We reviewed his barriers for planning and eating meals which are lower in carbohydrate. He reports no food insecurity, however, lacks structure in his day due to being unemployed. Today, he was able to make a meal plan that he can shop for. He realizes that he needs to shop weekly and plan his meals to meet nutrient needs for weight loss. Cristi is also willing to walk 2 miles daily to facilitate weight loss. Cristi is starting to make positive changes towards a more active life style. He is also seeing a therapist weekly to help him manage his stress/depression. He is now better equipped to plan and prepare meals that support a lower carb intake. Goal: 5-10 lbs weight loss per month. goal weight of 170-200 lbs in next 2 years. Plan: follow lower carb meal plan as reviewed, walk 2 miles daily, shop weekly and plan out meals, follow up appt. scheduled for 06/28/20 @ 1 pm.
== END 2020-05-24 13:06 ==
PROVIDERS: PCP Nurse Practitioner Family; Visit Provider Dietitian, Registered
DX: R73.03 Prediabetes (principal); E78.5 Hyperlipidemia, unspecified; E66.9 Obesity, unspecified; Z71.3 Dietary counseling and surveillance
CPT/HCPCS: 97803

== ENCOUNTER 2020-06-18 03:17 | Outpatient (CLI) | payer MEDICAID, SELFPAY ==
[2020-06-18 15:43] LABS: HCT 45.4 % (40.0-50.0); HGB 14.2 g/dL (13.5-17.5); Platelet Count 176 10^3/uL (130-400)
[2020-06-18 16:23] LABS: Iron 46 ug/dL (65-175); Total Iron Binding Capacity 384 ug/dL (250-450); Transferrin Sat 12 % (20-55)
== END 2020-06-18 03:37 ==
PROVIDERS: PCP Nurse Practitioner Family; Visit Provider Nurse Practitioner Family
DX: D64.9 Anemia, unspecified (principal); D69.1 Qualitative platelet defects
CPT/HCPCS: 36415; 83540; 83550; 85014; 85018; 85049

== ENCOUNTER 2020-06-28 02:39 | Outpatient (CLI) | payer MEDICAID, SELFPAY ==
--- NOTE | 2020-06-28 13:19 | NS.NUTBLAN_ITS ---
Cristi returns for third visit for Medical Nutrition Therapy for obesity, prediabetes, hyperlipidemia. Recent labs indicate low iron levels. Wt: 270 lbs, down 3 lbs from last month. Cristi reports fatigue and depression, continues not to work and wants to work on my health before returning to work. Discussed how not working can contribute to depression/fatigue. Diet recall indicates regular meals but continues to rely on simple carbs at most meals. Reviewed lower carb meal options with emphasis on lean protein, fruits, vegetables with limited amounts of simple carbohydrates. Cristi reports walking 1 mile daily. Goal: weight loss of 5-10 lbs per month, goal weight 180-190 lbs. Plan: Cristi will follow meal plan provided that focuses on lean protein and non starchy vegetables, will increase walking to 1 mile in AM, 1 mile in PM. Will email typewriter ribbon winder if has questions or concerns. Next appt. 07/26/20 at 1 pm.
== END 2020-06-28 02:59 ==
PROVIDERS: PCP Nurse Practitioner Family; Visit Provider Dietitian, Registered
DX: R73.03 Prediabetes (principal); E78.5 Hyperlipidemia, unspecified; E66.8 Other obesity; Z71.3 Dietary counseling and surveillance
CPT/HCPCS: 97803

== ENCOUNTER 2020-07-16 01:07 | Outpatient (CLI) | payer MEDICAID, SELFPAY ==
[2020-07-17 17:46] LABS: COVID-19 RT-PCR Result NEGATIVE (Negative)
== END 2020-07-16 01:27 ==
PROVIDERS: PCP Nurse Practitioner Family; Visit Provider Internal Medicine Sleep Medicine
DX: Z11.59 Encounter for screening for other viral diseases (principal); Z01.818 Encounter for other preprocedural examination
CPT/HCPCS: U0003

== ENCOUNTER 2020-08-03 01:40 | Outpatient (CLI) | payer MEDICAID, SELFPAY ==
--- NOTE | 2020-08-03 14:00 | NS.NUTBLAN_ITS ---
Cristi returns for Medical Nutrition Therapy for obesity. He declined to be weighed today. He shared that he was depressed, had only $50 for food each week and that he had been looking for work and been unsuccessful. We discussed how most people cannot feel motivated to improve their health if they have depression and insufficient funding for healthy food. Session today focused on a referral to [facility] to get support with mental health, access to healthy food and services that can benefit his family. Referral sent to Tamar today. Follow up appt. scheduled for 09/03/20 at 2 pm.
== END 2020-08-03 02:00 ==
PROVIDERS: PCP Nurse Practitioner Family; Visit Provider Dietitian, Registered
DX: E66.9 Obesity, unspecified (principal); Z71.3 Dietary counseling and surveillance
CPT/HCPCS: 97803

== ENCOUNTER 2020-08-07 10:16 | Emergency (ER) | payer MEDICAID, SELFPAY ==
[2020-08-07 10:22] VITALS: PULSE 103; RESP 20; TEMP 37.2; O2SAT 98
--- NOTE | 2020-08-07 10:43 | ED.GENADUL_ITS ---
Discharge Plan Disposition Patient Disposition: HOME Condition: Stable Discharge Details Clinical Impression: Viral illness Primary Care Provider: Jhonny Causey ED Provider: Valerie Hodges Home Meds and New Rx's Prescriptions: Continued lisinopril-hydrochlorothiazide 20-25 mg tablet 1 tab PO DAILY RF: 0 Discharge Instructions Instructions: Viral Syndrome (ED) Additional Instructions: Follow up with primary care provider in 3-5 days. Return to ED sooner if any worsening or concerns. Increase oral fluids. Please take Tylenol or Ibuprofen with food every 4-6 hours as needed for pain and swelling. Stand Alone Forms: PENDING COVID-19 TESTING Referrals: Jhonny Causey, WASH HOUSE WORKER [Primary Care Provider] - Discharge Data Discharge Date/Time-TO BE ENTERED AT DEPARTURE: 08/07/20 11:43 Medical Decision Making 45-year-old male presents to the ER with generalized myalgias, low-grade fever, headache and, chills for the last 2 days. He denies any specific ear pain, throat pain, cough, shortness of breath or abdominal pain. He took 325 mg of Tylenol prior to arrival. He has a history of hypertension, pleural effusion, anxiety, general platelet defect. Surgical history includes a bowel repair with: Partial colectomy. CBC is largely within normal limits, CMP is also largely within normal limits. Urinalysis within normal limits. Covid test is pending at this time. Patient symptoms appear largely to be viral in nature at this time. Instructed on home care increasing fluids and follow-up with PCP, verbalized understanding. HPI General Mode of arrival: ambulatory . Date/Time Provider Initiated Documentation: 08/07/20 10:19 . Limitations to Documentation: no limitations . Information obtained by: patient . HPI Narrative: 45-year-old male presents to the ER with generalized myalgias, low-grade fever, headache and, chills for the last 2 days. He denies any specific ear pain, throat pain, cough, shortness of breath or abdominal pain. He took 325 mg of Tylenol prior to arrival. He has a history of hypertension, pleural effusion, anxiety, general platelet defect. Surgical history includes a bowel repair with: Partial colectomy. Related Data Home Medications Medication Instructions Recorded Confirmed lisinopril-hydrochlorothiazide 1 tab PO DAILY 08/23/19 08/07/20 Allergies Allergy/AdvReac Type Severity Reaction Status Date / Time Penicillins Allergy Intermediate Skin Rash Verified 08/07/20 10:26 Sulfa (Sulfonamide Allergy Intermediate Skin Rash Verified 08/07/20 10:26 Antibiotics) General Stated Complaint: GenMedical ALESHA: 3 Review of Systems Narrative: Constitutional: Negative for weight loss, alert and oriented, well groomed, obese body habitus, appears comfortable. HEENT: Denies trauma, blurry vision, nasal discharge, sore throat, trouble swallowing. Positive headache and myalgias. Chest: Denies chest pain, palpitations, irregular rhythm, hypertension. Respiratory: Denies Shortness of breath, cough, hemoptysis. GI: Denies abdominal pain, nausea, vomiting, diarrhea, constipation. : Denies dysuria, hematuria, flank pain, rectal bleeding. Neuro: Denies dizziness, blurry vision, weakness, syncope, headache or facial numbness. Hematologic: Denies easy bruising, intolerance to heat or cold, hair loss. [facility] Medical History (Updated 08/07/20 @ 11:22 by Valerie Hodges) Anxiety about health Congenital platelet function defects Depression GERD without esophagitis Hernia of abdominal wall Hypertension Lumbar strain Nonsustained paroxysmal ventricular tachycardia Obesity, morbid, BMI 40.0-49.9 Obstructive sleep apnea Tendency toward bleeding easily Thoracic myofascial strain Surgical History S/P appendectomy S/P exploratory laparotomy (~08/23/19) S/P small bowel resection (~08/23/19) S/P vein stripping Family History Paternal Uncle Cancer unknown type of cancer; was a smoker Other Heart disease Hypertension Social History Smoking/Tobacco Use Status: Never Smoking risk assessment performed?: Yes Alcohol Intake: never Drug use: Never Substance use type: does not use Household members: significant other and children Do you feel safe at home: Yes Do you feel safe in your relationship?: Yes Exam Narrative Exam Narrative: Constitutional: Alert and oriented x3. Appears stated age. O bese body habitus. Head: Normocephalic, no trauma. Eyes: Pupils PERRLA, Red reflex noted, EOM's intact. Eyelids symmetrical without lesions, discharge, or swelling. ENT: Bilateral TM's WNL, External ear normal to inspection, no mastoid TTP, swelling, or erythema, Nasal turbinates WNL, no nasal discharge. Normal dentition, Posterior pharynx WNL, no exudate. Chest: RRR, Normal S1, S2, distal pulses intact. Resp: Lungs clear to auscultation bilaterally, no wheezes, rales, or rhonchi. Musculoskeletal: Normal gait, 5/5 strength to all four extremities. Skin: No suspicious rashes or lesions. Capillary refill less than 2 sec. Neurologic: Cranial nerves II-XII intact. Alert and oriented x 3. DTR's intact. Hematologic/Lymphatic: No ecchymosis, no lymphadenopathy. Course Vital Signs Vital signs: Vital Signs Temperature 37.2 C 08/07/20 10:22 Pulse 103 H 08/07/20 10:22 Respiratory Rate 20 08/07/20 10:22 Pulse Oximetry 98 08/07/20 10:22 Temperature 37.2 C 08/07/20 10:22 Pulse 103 H 08/07/20 10:22 Respiratory Rate 20 08/07/20 10:22 Respiratory Effort Non-Labored 08/07/20 10:31 Respiratory Depth Normal 08/07/20 10:31 Respiratory Pattern Normal 08/07/20 10:31 Blood Pressure Position Supine 08/07/20 10:22 Pulse Oximetry 98 08/07/20 10:22 Oxygen Delivery Method Room Air 08/07/20 10:22 Oxygen Flow Rate 0 08/07/20 10:22 Pain Level 7 08/07/20 10:22 Comment 08/07/20 10:22
[2020-08-07] MEDS: Ibuprofen 600 MG TAB PO (10:54)
[2020-08-07 10:56] LABS: Abs Immature Grans 0.03 10^3/uL (0.0-0.06); Absolute Basophil Count 0.05 10^3/uL (0.0-0.2); Absolute Eosinophil Count 0.29 10^3/uL (0.0-0.7); Absolute Monocyte Count 0.74 10^3/uL (0.1-0.8); Absolute Neutrophil Count 5.27 10^3/uL (1.2-6.7); Basophils % 0.6; Eosinophils % 3.4; HCT 41.6 % (40.0-50.0); HGB 13.3 g/dL (13.5-17.5); Immature Grans % 0.4; Lymphocytes % 24.8; MCH 28.8 pg (27.0-33.0); MPV 12.5 fL (8.0-11.0); Monocytes % 8.7; Neutrophils % 62.1; Nucleated RBC 0 %; Platelet Count 177 10^3/uL (130-400); RBC 4.62 10^6/uL (4.36-5.78); RDW-SD 49.1 fL; WBC 8.48 10^3/uL (4.4-10.8)
[2020-08-07 11:00] LABS: Bilirubin Negative (Negative); Blood Negative (Negative); Clarity Clear (Clear); Glucose Negative (Negative); Ketones Negative (Negative); Leukocyte Esterase Negative (Negative); Nitrite Negative (Negative); Specific Gravity 1.025 (1.005-1.025); pH 7.5 (5-8)
[2020-08-07 11:10] LABS: ALT 32 U/L (16-63); AST 30 U/L (15-37); Albumin 3.5 g/dL (3.4-5.0); Alkaline Phosphatase 123 U/L (46-116); Anion Gap 5.9 mmol/L (3-11); BUN 13 mg/dL (7-18); Bilirubin, Total 1.2 mg/dL (0.2-1.0); CO2 30.1 mmol/L (21.0-32.0); CREATININE 1.05 mg/dL (0.70-1.30); Calcium 8.5 mg/dL (8.5-10.1); Chloride 101 mmol/L (98-107); Glucose 115 mg/dL (74-106); Magnesium 1.7 mg/dL (1.8-2.4); Potassium 3.5 mmol/L (3.5-5.1); Sodium 137 mmol/L (136-145)
[2020-08-10 13:53] LABS: Patient Race White; SARS-CoV-2 RNA Undetected (Undetected); SARS-CoV-2 Specimen Source Nasopharynx
== END 2020-08-07 11:43 | disposition home or self-care (01) ==
PROVIDERS: Emergency Provider Registered Nurse Emergency; PCP Nurse Practitioner Family
DX: M79.18 Myalgia, other site (principal); R50.9 Fever, unspecified; R51.9 Headache, unspecified; B34.9 Viral infection, unspecified; Z11.59 Encounter for screening for other viral diseases; I10 Essential (primary) hypertension
CPT/HCPCS: 36415; 80053; 99283; U0003; 81003; 83735; 85025

== ENCOUNTER 2020-08-14 02:11 | Outpatient (CLI) | payer MEDICAID, SELFPAY ==
[2020-08-14 12:21] LABS: Ferritin 40 ng/mL (26-388); TSH (W/Ref FT4) 1.55 uIU/mL (0.36-3.74); Vitamin B12 324 pg/mL (193-986)
[2020-08-16 04:47] LABS: Vitamin D 25 Total 21.7 ng/ml (30-100)
== END 2020-08-14 02:31 ==
PROVIDERS: PCP Nurse Practitioner Family; Visit Provider Internal Medicine Sleep Medicine
DX: E55.9 Vitamin D deficiency, unspecified (principal); R53.83 Other fatigue; G25.81 Restless legs syndrome
CPT/HCPCS: 36415; 82306; 82607; 82728; 84443

== ENCOUNTER 2020-09-03 14:59 | Outpatient (CLI) | payer MEDICAID, SELFPAY ==
--- NOTE | 2020-09-03 14:00 | NS.NUTBLAN_ITS ---
Cristi returns for Medical Nutrition Therapy for obesity. WT: 270, unchanged. Labs (08/07/20) indicating slightly low Vit D and Hgb- he takes supplements daily. Cristi has been unemployed since surgery last year (08/23/19) for hernia repair with small bowel resection. His recovery was very slow and complicated with depression. He takes lisinopril for HTN and uses a CPAP for sleep apnea. He continues to report very low energy and fatigue. Cristi has been unable to lose weight despite multiple visits for weight loss. He reports depression getting worse in last couple of weeks, now from his girlfriend and living with his mother. He continues to have erratic eating pattern and no formal exercise routine. Today's visit consisted of encouraging him to pursue assistance from [facility] to assist him in finding a job, locating housing and clearing up legal issues. Referral made to [facility]. No follow up planned until Cristi has his basic current needs met.
== END 2020-09-03 15:19 ==
PROVIDERS: PCP Nurse Practitioner Family; Visit Provider Dietitian, Registered
DX: E66.8 Other obesity (principal); Z71.3 Dietary counseling and surveillance
CPT/HCPCS: 97803

== ENCOUNTER 2020-09-18 18:56 | Outpatient (REF) | payer MEDICAID, SELFPAY ==
[2020-09-18 20:13] LABS: HCT 44.9 % (40.0-50.0); HGB 14.5 g/dL (13.5-17.5); MCH 29.6 pg (27.0-33.0); MCHC 32.3 % (32.0-36.0); MCV 91.6 fL (80-95); MPV 13.8 fL (8.0-11.0); RDW 14.7 % (11.8-14.1); RDW-SD 49.8 fL; WBC 9.71 10^3/uL (4.4-10.8)
[2020-09-18 20:21] LABS: LDH 174 U/L (85-227)
[2020-09-18 20:23] LABS: Iron 62 ug/dL (65-175)
[2020-09-18 21:04] LABS: Platelet Count 181 10^3/uL (130-400)
[2020-09-20 04:37] LABS: Vitamin D 25 Total 29.9 ng/ml (30-100)
[2020-09-20 09:37] LABS: HIV-1/2 Ag & Ab Screen Negative (Negative)
[2020-09-20 10:09] LABS: Hepatitis C Ab w Rflx HCV PCR Negative (Negative)
== END 2020-09-18 19:16 ==
LOC: NCHCN 18:56
PROVIDERS: Family Medicine; PCP Nurse Practitioner Family; Visit Provider Nurse Practitioner Family
DX: R73.09 Other abnormal glucose (principal); D50.9 Iron deficiency anemia, unspecified; I10 Essential (primary) hypertension; Z00.00 Encounter for general adult medical examination without abnormal findings
CPT/HCPCS: 82306; 85027; 86803; 87389; 83036; 83540; 83615; 83735

== ENCOUNTER 2020-10-12 17:15 | Outpatient (REF) | payer MEDICAID, SELFPAY ==
[2020-10-15 11:30] LABS: COVID-19 RT-PCR UVMMC Result Negative (Negative)
== END 2020-10-12 17:35 ==
LOC: NCHCN 17:15
PROVIDERS: PCP Nurse Practitioner Family; Visit Provider Nurse Practitioner Family
DX: R11.2 Nausea with vomiting, unspecified (principal)
CPT/HCPCS: U0003

== ENCOUNTER 2020-11-30 01:54 | Outpatient (CLI) | payer MEDICAID, SELFPAY ==
[2020-11-30 17:22] LABS: Ferritin 44 ng/mL (26-388); Vitamin B12 608 pg/mL (193-986)
[2020-12-01 19:19] LABS: Vitamin D 25 Total 37.3 ng/ml (30-100)
== END 2020-11-30 01:55 | disposition home or self-care (01) ==
LOC: LBO 01:54
PROVIDERS: PCP Nurse Practitioner Family; Visit Provider Internal Medicine Sleep Medicine
DX: E55.9 Vitamin D deficiency, unspecified (principal); R53.83 Other fatigue; G25.81 Restless legs syndrome; Z86.2 Personal history of diseases of the blood and blood-forming organs and certain disorders involving the immune mechanism
CPT/HCPCS: 36415; 82306; 82607; 82728

== ENCOUNTER 2020-12-14 14:59 | Outpatient (REF) | payer MEDICAID, SELFPAY ==
[2020-12-14 18:55] LABS: Iron 21 ug/dL (65-175)
[2020-12-14 19:51] LABS: HCT 42.1 % (40.0-50.0); HGB 13.8 g/dL (13.5-17.5); MCH 29.8 pg (27.0-33.0); MCHC 32.8 % (32.0-36.0); MCV 90.9 fL (80-95); MPV 13.6 fL (8.0-11.0); RBC 4.63 10^6/uL (4.36-5.78); RDW 13.6 % (11.8-14.1); RDW-SD 45.4 fL; WBC 10.24 10^3/uL (4.4-10.8)
[2020-12-14 19:54] LABS: Platelet Count 188 10^3/uL (130-400)
== END 2020-12-14 15:00 | disposition home or self-care (01) ==
LOC: NCHCN 14:59
PROVIDERS: PCP Nurse Practitioner Family; Visit Provider Nurse Practitioner Family
DX: R53.83 Other fatigue (principal); D50.9 Iron deficiency anemia, unspecified
CPT/HCPCS: 85027; 81003; 83540

== ENCOUNTER 2021-01-15 03:48 | Outpatient (CLI) | payer MEDICAID, SELFPAY ==
[2021-01-15 16:05] LABS: HCT 44.8 % (40.0-50.0); HGB 14.4 g/dL (13.5-17.5); MCH 29.9 pg (27.0-33.0); MCHC 32.1 % (32.0-36.0); MCV 93.1 fL (80-95); MPV 12.6 fL (8.0-11.0); Platelet Count 164 10^3/uL (130-400); RBC 4.81 10^6/uL (4.36-5.78); RDW 13.7 % (11.8-14.1); WBC 10.54 10^3/uL (4.4-10.8)
[2021-01-15 17:36] LABS: Ferritin 67 ng/mL (26-388)
[2021-01-15 17:41] LABS: Iron 49 ug/dL (65-175)
== END 2021-01-15 03:49 | disposition home or self-care (01) ==
LOC: LBO 03:48
PROVIDERS: PCP Nurse Practitioner Family; Visit Provider Nurse Practitioner Family
DX: D50.9 Iron deficiency anemia, unspecified (principal)
CPT/HCPCS: 36415; 85027; 82728; 83540

== ENCOUNTER 2021-01-16 17:32 | Outpatient (REF) | payer MEDICAID, SELFPAY ==
[2021-01-16 19:54] LABS: Ferritin 67 ng/mL (26-388)
== END 2021-01-16 17:33 | disposition home or self-care (01) ==
LOC: NCHCN 17:32
PROVIDERS: PCP Nurse Practitioner Family; Visit Provider Nurse Practitioner Family
DX: D50.9 Iron deficiency anemia, unspecified (principal)
CPT/HCPCS: 82728

== ENCOUNTER 2021-04-08 13:55 | Outpatient (REF) | payer MEDICAID, SELFPAY ==
[2021-04-08 21:26] LABS: Bilirubin Negative (Negative); Blood Negative (Negative); Clarity Clear (Clear); Glucose Negative (Negative); Ketones Negative (Negative); Leukocyte Esterase Negative (Negative); Nitrite Negative (Negative); Specific Gravity 1.025 (1.005-1.025); Urobilinogen 0.2 EU/dL (Up TO 0.2); pH 6.5 (5-8)
[2021-04-08 21:34] LABS: Abs Immature Grans 0.04 10^3/uL (0.0-0.06); Absolute Lymphocyte Count 1.94 10^3/uL (1.2-3.4); Eosinophils % 3.9; HCT 46.9 % (40.0-50.0); HGB 15.2 g/dL (13.5-17.5); Immature Grans % 0.4; Lymphocytes % 18.9; MCH 30.2 pg (27.0-33.0); MCHC 32.4 % (32.0-36.0); MCV 93.2 fL (80-95); Monocytes % 8.8; Nucleated RBC 0 %; RBC 5.03 10^6/uL (4.36-5.78); RDW 13.6 % (11.8-14.1); RDW-SD 46.6 fL; WBC 10.28 10^3/uL (4.4-10.8)
[2021-04-08 21:58] LABS: Platelet Count 177 10^3/uL (130-400)
[2021-04-09 04:40] LABS: Iron 65 ug/dL (65-175); Total Iron Binding Capacity 364 ug/dL (250-450); Transferrin Sat 18 % (20-55)
[2021-04-09 04:45] LABS: Hemoglobin A1C 6.2 % (<5.7)
[2021-04-09 05:05] LABS: ALT 44 U/L (16-63); AST 39 U/L (15-37); Albumin 3.9 g/dL (3.4-5.0); Alkaline Phosphatase 139 U/L (46-116); Anion Gap 8.6 mmol/L (3-11); BUN 13 mg/dL (7-18); CO2 32.4 mmol/L (21.0-32.0); CREATININE 1.1 mg/dL (0.70-1.30); Calcium 8.6 mg/dL (8.5-10.1); Chloride 101 mmol/L (98-107); Ferritin 73 ng/mL (26-388); Glucose 102 mg/dL (74-106); Potassium 4.2 mmol/L (3.5-5.1); Sodium 142 mmol/L (136-145); TSH (W/Ref FT4) 1.37 uIU/mL (0.36-3.74); Total Protein 7.4 g/dL (6.4-8.2); Vitamin B12 575 pg/mL (193-986)
== END 2021-04-08 13:56 | disposition home or self-care (01) ==
LOC: LBN 13:55
PROVIDERS: PCP Nurse Practitioner Family; Visit Provider Nurse Practitioner Family
DX: D50.9 Iron deficiency anemia, unspecified (principal); R53.83 Other fatigue; R73.03 Prediabetes
CPT/HCPCS: 80053; 81003; 82607; 82728; 83036; 83540; 83550; 84443; 85025

== ENCOUNTER 2021-12-13 16:38 | Outpatient (REF) | payer MEDICAID, SELFPAY ==
[2021-12-13 15:34] LABS: Abs Immature Grans 0.03 10^3/uL (0.0-0.06); Absolute Basophil Count 0.09 10^3/uL (0.0-0.2); Absolute Eosinophil Count 0.43 10^3/uL (0.0-0.7); Absolute Lymphocyte Count 2.03 10^3/uL (1.2-3.4); Absolute Monocyte Count 0.85 10^3/uL (0.1-0.8); Absolute Neutrophil Count 5.61 10^3/uL (1.2-6.7); Eosinophils % 4.8; HCT 45.3 % (40.0-50.0); HGB 14.6 g/dL (13.5-17.5); Immature Grans % 0.3; Lymphocytes % 22.5; MCH 30.6 pg (27.0-33.0); MCHC 32.2 % (32.0-36.0); MPV 13.5 fL (8.0-11.0); Monocytes % 9.4; Nucleated RBC 0 %; Platelet Count 155 10^3/uL (130-400); RBC 4.77 10^6/uL (4.36-5.78); RDW 12.6 % (11.8-14.1); RDW-SD 44.4 fL; WBC 9.04 10^3/uL (4.4-10.8)
[2021-12-13 15:55] LABS: Diff Comment Agrees w/ Instrument; RBC Morphology Normal
[2021-12-13 16:20] LABS: ALT 32 U/L (16-63); AST 32 U/L (15-37); Albumin 3.7 g/dL (3.4-5.0); Alkaline Phosphatase 113 U/L (46-116); Anion Gap 8.9 mmol/L (3-11); BUN 15 mg/dL (7-18); Bilirubin, Total 0.7 mg/dL (0.2-1.0); CO2 28.1 mmol/L (21.0-32.0); CREATININE 1.1 mg/dL (0.70-1.30); Calcium 8.5 mg/dL (8.5-10.1); Chloride 103 mmol/L (98-107); Glucose 101 mg/dL (74-106); Potassium 3.6 mmol/L (3.5-5.1); Sodium 140 mmol/L (136-145); TSH (W/Ref FT4) 0.94 uIU/mL (0.36-3.74)
== END 2021-12-13 16:39 | disposition home or self-care (01) ==
LOC: NCHCN 16:38
PROVIDERS: PCP Nurse Practitioner Family; Visit Provider Nurse Practitioner Family
DX: R53.83 Other fatigue (principal); D50.9 Iron deficiency anemia, unspecified; R73.03 Prediabetes; D69.1 Qualitative platelet defects
CPT/HCPCS: 80053; 83036; 84443; 85025

== ENCOUNTER 2022-01-27 14:16 | Outpatient (CLI) | payer MEDICAID, SELFPAY ==
--- NOTE | 2022-01-27 | DI.CT_ITS ---
Exam(s) CT CHEST PE CTA EXAM: CT CHEST PE CTA CLINICAL HISTORY: HX COVID 19 Z86.16 PLATLET DISORDER D69.1 DYSPNEA R06.00 TACHYCARDIA R00.0. TECHNIQUE: Imaging Protocol: Axial CT angiography was performed with multi-slice acquisition and mu lti-planar and/or 3D reconstructions. CONTRAST MATERIAL: Intravenous: Omnipaque 350 Contrast volume:100 mL COMPARISON: CR XR CHEST 2V PA LATERAL from 01/07/[address] CHEST PE ABD PELVIS W from 09/21/2019 FINDINGS: Tracheobronchial tree: Patent where visualized. Pulmonary parenchyma: No consolidation or dominant measurable mass. Scarring or atelectasis is seen i n the left lingula. There are calcified granuloma in the lungs. Pulmonary Arteries: The peripheral pulmonary arteries are poorly opacified. No evidence of a central pulmonary artery embolus. Mediastinum and Aaliyah: No dominant adenopathy or fluid collection. The esophagus is unremarkable. Visualized thyroid gland: Unremarkable. Pleura: No effusion or pneumothorax. Heart: The heart is not dilated. No coronary artery calcifications are seen. No pericardial effusion. Aorta: Thoracic aorta non-dilated. No evidence of dissection. Upper abdomen: Fatty infiltration of the liver. Soft tissues: Unremarkable. Bones: Within normal limits for the patient's age.There is a reverse S-type thoracic scoliosis. IMPRESSION: No evidence of pulmonary embolism, thoracic aortic dissection or aneurysm. RADIATION DOSE DELIVERED: 590.15mGy.cm Total DLP DATA REPOSITORY: All CT scans at this facility are submitted to the National Radiology Data Registry (NRDR) Dose Index Registry (DIR) with the [employer] (ACR). RADIATION OPTIMIZATION: All CT scans at this facility use at least one of these dose optimization te chniques: automated exposure control; mA and/or kV adjustment per patient size (includes targeted exa ms where dose is matched to clinical indication); or iterative reconstruction.
[2022-01-27] MEDS: Omnipaque 350 MG/ML 100 ML BTL IV (12:53)
== END 2022-01-27 14:36 ==
PROVIDERS: PCP Nurse Practitioner Family; Visit Provider Nurse Practitioner Family
DX: R06.09 Other forms of dyspnea (principal); D69.1 Qualitative platelet defects; Z86.16 Personal history of COVID-19; R91.8 Other nonspecific abnormal finding of lung field; R00.0 Tachycardia, unspecified
CPT/HCPCS: 71275; J3490

== ENCOUNTER 2022-01-27 16:31 | Outpatient (REF) | payer MEDICAID, SELFPAY ==
[2022-01-27 16:16] LABS: Abs Immature Grans 0.08 10^3/uL (0.0-0.06); Absolute Basophil Count 0.09 10^3/uL (0.0-0.2); Absolute Eosinophil Count 0.29 10^3/uL (0.0-0.7); Absolute Lymphocyte Count 2.46 10^3/uL (1.2-3.4); Absolute Monocyte Count 0.77 10^3/uL (0.1-0.8); Absolute Neutrophil Count 7.15 10^3/uL (1.2-6.7); Basophils % 0.8; Eosinophils % 2.7; HCT 46.6 % (40.0-50.0); HGB 14.9 g/dL (13.5-17.5); Immature Grans % 0.7; Lymphocytes % 22.7; MCH 30.7 pg (27.0-33.0); MCV 95.9 fL (80-95); Monocytes % 7.1; Platelet Count 154 10^3/uL (130-400); RBC 4.86 10^6/uL (4.36-5.78); RDW-SD 46.2 fL; WBC 10.84 10^3/uL (4.4-10.8)
[2022-01-27 17:00] LABS: ALT 35 U/L (16-63); AST 39 U/L (15-37); Albumin 3.7 g/dL (3.4-5.0); Alkaline Phosphatase 102 U/L (46-116); Anion Gap 4.3 mmol/L (3-11); BUN 14 mg/dL (7-18); Bilirubin, Total 0.8 mg/dL (0.2-1.0); CO2 32.7 mmol/L (21.0-32.0); Calcium 8.6 mg/dL (8.5-10.1); Chloride 102 mmol/L (98-107); Glucose 127 mg/dL (74-106); Sodium 139 mmol/L (136-145)
== END 2022-01-27 16:32 | disposition home or self-care (01) ==
LOC: NCHCN 16:31
PROVIDERS: PCP Nurse Practitioner Family; Visit Provider Nurse Practitioner Family
DX: R00.0 Tachycardia, unspecified (principal); R06.00 Dyspnea, unspecified
CPT/HCPCS: 80053; 83735; 85025

== ENCOUNTER → 2022-03-26 01:11 | Outpatient (CLI) | payer MEDICAID, SELFPAY ==
--- NOTE | 2022-03-26 13:50 | DI.US_ITS ---
APPROVED REPORT EXAM: Comprehensive 2D, Doppler, and color-flow Echocardiogram Patient Location: Out-Patient Fruit Sprayer: Lynn Rosado RDCS (AE) Indications: Left Atrial Enlargment Other Information Study Quality: Adequate Conclusion Normal left ventricular wall thickness and chamber size. Estimated ejection fraction is 60%. Wall m otion is normal Normal right ventricular size and systolic function Both atria are normal in size There is no structural or hemodynamically significant valvular disease Mildly dilated aortic root Wall motion Left Ventricle The left ventricle is normal size. The left ventricular systolic function is normal. The left ventric ular ejection fraction is within the normal range. There is normal left ventricular wall thickness. T here is normal LV segmental wall motion. There is no ventricular septal defect visualized. LVEF is 60 %. Right Ventricle The right ventricle is normal size. The right ventricular systolic function is normal. Atria The left atrium size is normal. The right atrium size is normal. The interatrial septum is intact wit h no evidence for an atrial septal defect. Aortic Valve The aortic valve is normal in structure. Aortic valve is trileaflet. There is no aortic valvular sten osis. No aortic regurgitation is present. Mitral Valve The mitral valve is normal in structure. No evidence of mitral valve stenosis. Trace mitral regurgita tion. Tricuspid Valve The tricuspid valve is normal in structure. There is no tricuspid valve stenosis. Trace tricuspid reg urgitation. Unable to assess PA pressure. Pulmonic Valve The pulmonary valve is normal in structure. There is no pulmonic valvular stenosis. There is no pulmo paula valvular regurgitation. Great Vessels Aortic root is mildly dilated. The ascending aorta is normal in size. Aortic arch is normal in calibe r. IVC is normal in size and collapses >50% with inspiration. Pericardium There is no pericardial effusion. 2D Dimensions IVSD d PLAX 1.04 cm M: 0.6-1.2 LV Vol A2C d MOD 96.8 mL LVPW d PLAX 1.05 cm M: 0.6 - 1.2 LV Vol A4C d MOD 150.2 mL LVID d PLAX 4.79 cm M: 4.2 - 5.8 LA vol/ BSA A4C s A-L 17.7 mL/m2 LVDs 3.20 cm M: 2.5 - 4.0 LA Area A4C s MOD 16.43 cm2 Ao Root d 4.19 cm M: 3.1 - 3.7 LV EF A4C MOD 60.3 % RA Area A4C 13.78 cm2 LV EF A2C MOD 60.5 % RA Vol/ BSA A4C s A-L 15.2 mL/m2 LV EF Biplane MOD 59.6 % Ao Asc Diam d 3.30 cm M: 2.6 - 3.4 SV 72.95 mL LV EF Teichholz 61.1 % SV Index 29.98 mL/m2 LVEF (Ward's) 59.63 % M: 52 - 72 LV Volume 86.31 mL M: 62 - 150 LV Volume Index 35.51 mL/m2 M: 34 - 74 LV Vol Biplane MOD 122.3 mL FS 32.75 % M-Mode TAPSE 2.41 cm (M/F) >1.7 LV Diastology MV E' medial 0.103 (>0.07 m/s) E/A Ratio 1.3 LV E/e MED 8.15 (<14) MV E Vmax 0.84 (0.4-1.3 m/s) MV E' lateral 0.112 (>0.1 m/s) MV A Vmax 0.65 (0.4-1.3 m/s) LV E/e LAT 7.40 (<14) MV E/A Ratio 1.21 MV E/E' medial 8.15 MV E/E' lateral 7.44 Aortic Valve LVOT Area 3.45 cm2 AoV Area Vmax 2.54 cm2 LVOT Vmax 0.83 m/s AoV Area/ BSA (Vmax) 1.04 cm2/m2 LVOT Mean Royce. 0.53 m/s INDIRA Mean Royce. 2.24 cm2 LVOT Peak Grad 2.8 mmHg INDIRA Mean Royce. Index 0.92 cm2/m2 LVOT Mean Grad 1.3 mmHg LVOT VTI 0.163 m LVOT Diam s 2.05 cm AoV Vmax 1.13 m/s Velocity Ratio 0.73 AoV Mean Royce. 0.82 m/s AoV Peak Grad 5.1 mmHg LVOT SV 56.20 mL AoV Mean Grad 3.0 mmHg AoV VTI 0.216 m AoV Area VTI 2.61 cm2 AoV Area/ BSA (VTI) 1.07 cm/m2 Mitral Valve MV DT 200 (160-240 msec) MV PHT 58 msec MV Area PHT 3.79 cm2 MV VTI 0.184 m MV Area VTI 3.06 (4.0-6.0 cm2) Pulmonary Valve PV Vmax 0.83 (0.5-1.5 m/s) RVOT Peak Gr. 1.84 mmHg PV Peak Grad 2.8 mmHg RVOT Mean Gr. 0.95 mmHg PV Mean Grad 2.0 mmHg RVOT VTI 0.093 m PV VTI 0.177 m RVOT Vmax 0.68 m/s
== END ==
PROVIDERS: PCP Nurse Practitioner Family; Visit Provider Nurse Practitioner Family
DX: I51.7 Cardiomegaly (principal)
CPT/HCPCS: 93306

== ENCOUNTER 2022-05-08 17:59 | Outpatient (REF) | payer MEDICAID, SELFPAY ==
[2022-05-08 18:37] LABS: HCT 46.1 % (40.0-50.0); HGB 14.9 g/dL (13.5-17.5); MCH 30.3 pg (27.0-33.0); MCHC 32.3 % (32.0-36.0); MCV 94 fL (80-95); MPV 13.6 fL (8.0-11.0); Platelet Count 150 10^3/uL (130-400); RBC 4.91 10^6/uL (4.36-5.78); RDW 12.8 % (11.8-14.1); RDW-SD 44.3 fL; WBC 10.34 10^3/uL (4.4-10.8)
[2022-05-08 19:43] LABS: Iron 66 ug/dL (65-175); Total Iron Binding Capacity 353 ug/dL (250-450); Transferrin Sat 19 % (20-55)
[2022-05-08 19:53] LABS: ALT 39 U/L (16-63); AST 41 U/L (15-37); Albumin 3.6 g/dL (3.4-5.0); Alkaline Phosphatase 96 U/L (46-116); Anion Gap 9.6 mmol/L (3-11); BUN 13 mg/dL (7-18); Bilirubin, Total 0.7 mg/dL (0.2-1.0); CO2 30.4 mmol/L (21.0-32.0); CREATININE 0.9 mg/dL (0.70-1.30); Calcium 8.6 mg/dL (8.5-10.1); Chloride 100 mmol/L (98-107); Ferritin 81 ng/mL (26-388); Glucose 117 mg/dL (74-106); Potassium 3.7 mmol/L (3.5-5.1); Sodium 140 mmol/L (136-145); Total Protein 7.6 g/dL (6.4-8.2)
== END 2022-05-08 18:00 | disposition home or self-care (01) ==
LOC: NCHCN 17:59
PROVIDERS: PCP Nurse Practitioner Family; Visit Provider Nurse Practitioner Family
DX: D50.9 Iron deficiency anemia, unspecified (principal); R53.83 Other fatigue; D69.1 Qualitative platelet defects; F32.9 Major depressive disorder, single episode, unspecified
CPT/HCPCS: 80053; 85027; 82728; 83540; 83550

== ENCOUNTER → 2022-05-23 23:09 | Outpatient (CLI) | payer MEDICAID, SELFPAY ==
--- NOTE | 2022-05-23 14:30 | DI.RAD_ITS ---
Exam(s) XR LUMBAR SPINE COMPLETE EXAM: XR LUMBAR SPINE COMPLETE CLINICAL HISTORY: Vertebral Spacing And Alignment, Low Back Pain--M54.50. TECHNIQUE: 2D digital imaging was performed. Five views. COMPARISON: CT CT CHEST PE ABD PELVIS W from 09/21/[address] CHEST PE CTA from 01/27/2022 FINDINGS: BONES: No compression fracture or destructive lesion. Vertebral bodies show small endplate osteophyte s.. The largest osteophytes is seen at the L2-3 on the left. No facet hypertrophy identified. DISKS: There is narrowing of the L5-S1 disc space, similar in appearance to prior CT. Facet joint de generative changes are also present.. ALIGNMENT: Lumbar spinal alignment is within normal limits. SOFT TISSUE: Normal. IMPRESSION: Degenerative changes greatest at L5-S1. DATA REPOSITORY: RADIATION DOSE DELIVERED:
== END ==
PROVIDERS: PCP Nurse Practitioner Family; Visit Provider Nurse Practitioner Family
DX: M47.817 Spondylosis without myelopathy or radiculopathy, lumbosacral region (principal)
CPT/HCPCS: 72110

== ENCOUNTER 2022-10-01 14:50 | Outpatient (REF) | payer MEDICAID, SELFPAY ==
[2022-10-01 19:19] LABS: Abs Immature Grans 0.03 10^3/uL (0.0-0.06); Absolute Basophil Count 0.08 10^3/uL (0.0-0.2); Absolute Lymphocyte Count 2.08 10^3/uL (1.2-3.4); Absolute Monocyte Count 0.71 10^3/uL (0.1-0.8); Absolute Neutrophil Count 6.13 10^3/uL (1.2-6.7); Basophils % 0.9; Eosinophils % 3.2; HCT 47.6 % (40.0-50.0); HGB 14.8 g/dL (13.5-17.5); Immature Grans % 0.3; Lymphocytes % 22.3; MCH 29.7 pg (27.0-33.0); MCHC 31.1 % (32.0-36.0); MCV 95 fL (80-95); MPV 13.5 fL (8.0-11.0); Monocytes % 7.6; Neutrophils % 65.7; Platelet Count 156 10^3/uL (130-400); RBC 4.99 10^6/uL (4.36-5.78); RDW 13.2 % (11.8-14.1); RDW-SD 46.1 fL; WBC 9.33 10^3/uL (4.4-10.8)
[2022-10-01 19:26] LABS: Iron 81 ug/dL (65-175); Total Iron Binding Capacity 378 ug/dL (250-450); Transferrin Sat 21 % (20-55)
[2022-10-01 19:55] LABS: Hemoglobin A1C 6.6 % (<5.7)
[2022-10-01 20:07] LABS: ALT 36 U/L (16-63); AST 32 U/L (15-37); Albumin 3.7 g/dL (3.4-5.0); Alkaline Phosphatase 116 U/L (46-116); Anion Gap 5.6 mmol/L (3-11); BUN 13 mg/dL (7-18); Bilirubin, Total 0.8 mg/dL (0.2-1.0); CO2 34.4 mmol/L (21.0-32.0); CREATININE 1.2 mg/dL (0.70-1.30); Calcium 8.4 mg/dL (8.5-10.1); Chloride 104 mmol/L (98-107); Cholesterol 222 mg/dL (<200); Estimated GFR 75.53 (mL/min/1.73m2); Glucose 116 mg/dL (74-106); HDL Cholesterol 33 mg/dL (40-60); Magnesium 1.8 mg/dL (1.8-2.4); Sodium 144 mmol/L (136-145); Total Protein 7.1 g/dL (6.4-8.2); Triglyceride 439 mg/dL (<150); Vitamin B12 503 pg/mL (193-986)
[2022-10-01 20:31] LABS: LDL CHOLESTEROL 119 mg/dL (<100)
== END 2022-10-01 14:51 | disposition home or self-care (01) ==
LOC: NCHCN 14:50
PROVIDERS: Visit Provider Nurse Practitioner Family
DX: E53.8 Deficiency of other specified B group vitamins (principal); R25.2 Cramp and spasm; E61.1 Iron deficiency; R73.03 Prediabetes; E78.00 Pure hypercholesterolemia, unspecified
CPT/HCPCS: 80053; 80061; 83721; 82607; 83036; 83540; 83550; 83735; 85025

== ENCOUNTER 2022-11-13 01:56 | Outpatient (CLI) | payer MEDICAID, SELFPAY | END 2022-11-13 01:57 | disposition home or self-care (01) | LOC: LOS 01:56 | PROVIDERS: Visit Provider Allergy & Immunology ==

== ENCOUNTER 2022-11-17 17:45 | Outpatient (REF) | payer MEDICAID, SELFPAY ==
[2022-11-17 18:28] LABS: ESR 12 mm/hr (0-15)
[2022-11-17 18:31] LABS: Abs Immature Grans 0.04 10^3/uL (0.0-0.06); Absolute Basophil Count 0.09 10^3/uL (0.0-0.2); Absolute Eosinophil Count 0.27 10^3/uL (0.0-0.7); Absolute Lymphocyte Count 1.88 10^3/uL (1.2-3.4); Absolute Monocyte Count 0.58 10^3/uL (0.1-0.8); Absolute Neutrophil Count 6.26 10^3/uL (1.2-6.7); HGB 15.4 g/dL (13.5-17.5); Immature Grans % 0.4; Lymphocytes % 20.6; MCH 29.4 pg (27.0-33.0); MCHC 30.8 % (32.0-36.0); MCV 96 fL (80-95); MPV 14.2 fL (8.0-11.0); Monocytes % 6.4; Neutrophils % 68.6; Platelet Count 147 10^3/uL (130-400); RBC 5.23 10^6/uL (4.36-5.78); RDW 13.5 % (11.8-14.1); RDW-SD 47.6 fL; WBC 9.12 10^3/uL (4.4-10.8)
[2022-11-17 18:44] LABS: C-Reactive Protein 1.76 mg/dL (0.0-0.3)
[2022-11-18 18:13] LABS: IgE 14 IU/mL (<158)
[2022-11-19 13:43] LABS: ANA Interpretation Positive (Negative); ANA Titer Pattern 1:160 Nucleolar; ANCA Interpretation Negative (Negative)
== END 2022-11-17 17:46 | disposition home or self-care (01) ==
LOC: LBN 17:45
PROVIDERS: Visit Provider Allergy & Immunology
DX: J33.8 Other polyp of sinus (principal); E61.1 Iron deficiency; R25.2 Cramp and spasm; R79.82 Elevated C-reactive protein (CRP)
CPT/HCPCS: 85652; 86255; 82785; 85025; 86038; 86140

== ENCOUNTER 2022-11-20 00:18 | Outpatient (CLI) | payer MEDICAID, SELFPAY ==
--- NOTE | 2022-11-20 | DI.CT_ITS ---
Exam(s) CT CHEST WO EXAM: CT CHEST WO CLINICAL HISTORY: COUGH R05.9. TECHNIQUE: Multi planar reconstructions were performed. CONTRAST MATERIAL: None COMPARISON: CT CT CHEST PE CTA from 01/27/2022 FINDINGS: CHEST: LUNGS: There are few small benign calcified granulomas in the lung thompson. No ominous pulmonary nodu les. Some scarring or atelectasis in the left upper lobe is unchanged. There are no new infiltrates nor pleural effusions. No significant findings in the trachea and mainstem bronchi. There is no br onchiectasis MEDIASTINUM: There is no obvious hilar nor mediastinal adenopathy. Visualized thyroid unremarkable.No obvious axillary adenopathy CARDIAC: Heart size is normal. There is no pericardial effusion.Caliber of the thoracic aorta is wit hin normal limits. VISUALIZED UPPER ABDOMEN:Hepatic steatosis again noted. No splenomegaly. No significant adrenal mas ses. OSSEOUS: No significant osseous lesions.No fractures.. IMPRESSION: 1. Compared to prior CT scan of 01/27/2022 there are few unchanged small benign calcified granulomas in the lung thompson. Also some unchanged scarring in the left upper lobe. There are no new significa nt pulmonary findings, pleural effusions, nor intrathoracic adenopathy. 2. Hepatic steatosis is again noted. RADIATION DOSE DELIVERED: 1,028.82mGy.cm Total DLP DATA REPOSITORY: All CT scans at this facility are submitted to the National Radiology Data Registry (NRDR) Dose Index Registry (DIR) with the [employer] (ACR). RADIATION OPTIMIZATION: All CT scans at this facility use at least one of these dose optimization te chniques: automated exposure control; mA and/or kV adjustment per patient size (includes targeted exa ms where dose is matched to clinical indication); or iterative reconstruction.
--- NOTE | 2022-11-20 | DI.CT_ITS ---
Exam(s) CT SINUS WO EXAM: CT SINUS WO CLINICAL HISTORY: ANOSMIA R43.0 NASAL CONGESTION R09.81 NASAL POLYPS J33.9 R/O CHRONIC SINUSI. TECHNIQUE: Imaging Protocol: Axial computed tomography images with coronal and sagittal reformatted images were created and reviewed. No IV Contrast COMPARISON: No exams were available for comparison FINDINGS: MAXILLARY SINUSES: There is almost complete opacification left maxillary sinus but without a distinct fluid level. Ther e is also opacification of adjacent model air cells and poorly visualize ipsilateral ostiomeatal unit .There is a con dex superior nodule in the floor of the opposite-right maxillary sinus which measures approximately 1.2 x 1.2 cm and is either polyp or post inflammatory retention cyst, not associated w ith a fluid level. The right ostiomeatal unit is identifiable and patent. No significant opacificat ion of right-sided ethmoidal air cells. Mild mucosal thickening noted in the right sphenoid sinus. Left sphenoid sinus is clear. Some mucosal thickening is and is noted in the left frontal sinus. Ri ght frontal sinus clear. No evidence of bone dehiscence. Mastoid air cells are somewhat hypoplastic ,. NASAL SEPTUM AND TURBINATES:Nasal septum is relatively midline. No significant nasal septal spur. L eft middle turbinate is not seen and probably resected. Right middle turbinate unremarkable. IMPRESSION: 1. Left-sided findings as above, probably related to polyposis and there is evidence of prior surger y on the left side. Left frontal sinus also involved. 2. Over the mild right-sided findings as described above including what is probably a 12 x 12 millim eter post inflammatory retention cyst in floor of the right maxillary sinus. RADIATION DOSE DELIVERED: 149.34mGy.cm Total DLP DATA REPOSITORY: All CT scans at this facility are submitted to the National Radiology Data Registry (NRDR) Dose Index Registry (DIR) with the [employer] (ACR). RADIATION OPTIMIZATION: All CT scans at this facility use at least one of these dose optimization te chniques: automated exposure control; mA and/or kV adjustment per patient size (includes targeted exa ms where dose is matched to clinical indication); or iterative reconstruction.
== END 2022-11-20 00:38 ==
LOC: DI 00:18
PROVIDERS: Visit Provider Allergy & Immunology
DX: R05.9 Cough, unspecified (principal); K76.0 Fatty (change of) liver, not elsewhere classified; J33.9 Nasal polyp, unspecified; R43.0 Anosmia; R09.81 Nasal congestion
CPT/HCPCS: 71250; 70486

== ENCOUNTER 2022-12-15 11:00 | Outpatient (REF) | payer MEDICAID, SELFPAY ==
[2022-12-15 15:41] LABS: Hemoglobin A1C 6.8 % (<5.7)
[2022-12-15 16:04] LABS: ALT 39 U/L (16-63); AST 35 U/L (15-37); Albumin 3.8 g/dL (3.4-5.0); Alkaline Phosphatase 127 U/L (46-116); Anion Gap 3.6 mmol/L (3-11); BUN 13 mg/dL (7-18); Bilirubin, Total 1.2 mg/dL (0.2-1.0); CO2 35.4 mmol/L (21.0-32.0); Calcium 8.8 mg/dL (8.5-10.1); Calculated LDL 139 mg/dL (<100); Chloride 100 mmol/L (98-107); Cholesterol 227 mg/dL (<200); Glucose 109 mg/dL (74-106); HDL Cholesterol 40 mg/dL (40-60); Sodium 139 mmol/L (136-145); Total Protein 7.7 g/dL (6.4-8.2); Triglyceride 241 mg/dL (<150)
== END 2022-12-15 11:01 | disposition home or self-care (01) ==
LOC: NCHCN 11:00
PROVIDERS: Visit Provider Nurse Practitioner Family
DX: R73.03 Prediabetes (principal); E78.5 Hyperlipidemia, unspecified
CPT/HCPCS: 80053; 80061; 83036

== ENCOUNTER 2023-02-02 08:55 | Outpatient (CLI) | payer MEDICAID, SELFPAY ==
--- NOTE | 2023-02-02 08:45 | RT.EKG_ITS ---
APPROVED REPORT Exam: Resting ECG Reason for Exam: Pre Op Exam Patient Location: O HR:97 bpm ECG Measurements Heart Rate 97 AXIS ND 160 P 76 QRSd 91 QRS 81 QT 349 T 55 QTc 444 Conclusion Sinus rhythm...normal P axis, V-rate 50- 99 Probable left atrial enlargement...P >50mS, <-0.10mV V1 Poor R wave progression
== END 2023-02-02 08:56 | disposition home or self-care (01) ==
PROVIDERS: Visit Provider Nurse Practitioner Family
DX: Z01.810 Encounter for preprocedural cardiovascular examination (principal)
CPT/HCPCS: 93005; 93010

== ENCOUNTER 2023-03-18 13:13 | Outpatient (REF) | payer MEDICAID, SELFPAY ==
[2023-03-18 16:38] LABS: ALT 42 U/L (16-63); AST 39 U/L (15-37); Albumin 3.6 g/dL (3.4-5.0); Alkaline Phosphatase 109 U/L (46-116); Bilirubin, Direct 0.2 mg/dL (0.0-0.2); Bilirubin, Total 1.2 mg/dL (0.2-1.0); Cholesterol 198 mg/dL (<200); HDL Cholesterol 33 mg/dL (40-60); Total Protein 7.5 g/dL (6.4-8.2); Triglyceride 436 mg/dL (<150)
[2023-03-18 17:23] LABS: LDL CHOLESTEROL 116 mg/dL (<100)
== END 2023-03-18 13:14 | disposition home or self-care (01) ==
LOC: NCHCN 13:13
PROVIDERS: PCP Nurse Practitioner Family; Visit Provider Nurse Practitioner Family
DX: E78.5 Hyperlipidemia, unspecified (principal)
CPT/HCPCS: 80061; 80076; 83721

== ENCOUNTER 2023-11-12 02:25 | Outpatient (CLI) | payer MEDICAID, SELFPAY | END 2023-11-12 02:26 | disposition home or self-care (01) | LOC: DS 02:25 | PROVIDERS: PCP Nurse Practitioner Family; Visit Provider Dietitian, Registered | DX: E66.01 Morbid (severe) obesity due to excess calories (principal); Z68.42 Body mass index [BMI] 45.0-49.9, adult; R73.09 Other abnormal glucose; Z71.3 Dietary counseling and surveillance | CPT/HCPCS: 97802 ==

== ENCOUNTER 2023-12-09 05:08 | Outpatient (CLI) | payer MEDICAID, SELFPAY ==
--- NOTE | 2023-12-09 10:00 | NS.NUTBLAN_ITS ---
Mr. Barillas has requested brief follow ups for his nutritional counseling. His weight is stable at 301. He had been on a weight gain trajectory prior to coming here. Mr. aBrillas has made some positive changes in his food choices including changing his snacks to nutrient dense ones such as cottage cheese and yogurt and crackers and peanut butter versus his previous choices of snack cakes and such. So far he has been unable to alter his Mountain Dew consumption. He is pre-contemplating mixing the regular Mountain Dew with some diet. He does know that he will need to make this change for his health but he is expressing anxiety over making the change. Mr. Barillas has been making an effort to move more throughout the day. Acknowledged his progress. Guided him to develop an action vazquez or two for the next few weeks. Mr. Barillas will return for follow up towards the end of December. Thank you for allowing me to continue to participate in the care of your patient.
== END 2023-12-09 05:09 | disposition home or self-care (01) ==
PROVIDERS: PCP Nurse Practitioner Family; Visit Provider Dietitian, Registered
DX: E66.01 Morbid (severe) obesity due to excess calories (principal); Z71.3 Dietary counseling and surveillance
CPT/HCPCS: 97803

== ENCOUNTER 2024-01-11 13:12 | Outpatient (REF) | payer MEDICAID, SELFPAY ==
[2024-01-11 18:37] LABS: ALT 73 U/L (16-63); AST 54 U/L (15-37); Albumin 3.3 g/dL (3.4-5.0); Alkaline Phosphatase 123 U/L (46-116); Anion Gap 5.8 mmol/L (3-11); BUN 12 mg/dL (7-18); Bilirubin, Total 0.8 mg/dL (0.2-1.0); CO2 31.2 mmol/L (21.0-32.0); CREATININE 1.1 mg/dL (0.70-1.30); Calcium 8.4 mg/dL (8.5-10.1); Chloride 104 mmol/L (98-107); Estimated GFR 83.32 (mL/min/1.73m2); Glucose 96 mg/dL (74-106); Potassium 4.3 mmol/L (3.5-5.1); Sodium 141 mmol/L (136-145)
[2024-01-11 18:43] LABS: COMMENT (LAB VIEW ONLY) 117.85 mg/dL; Hemoglobin A1C 6.6 % (<5.7); Microalb ug/mg Crea 6.8 ug/mg Cr
== END 2024-01-11 13:13 | disposition home or self-care (01) ==
LOC: NCHCN 13:12
PROVIDERS: PCP Nurse Practitioner Family; Visit Provider Nurse Practitioner Family
DX: E11.9 Type 2 diabetes mellitus without complications (principal)
CPT/HCPCS: 80053; 82043; 82570; 83036

== ENCOUNTER 2024-01-13 14:03 | Emergency (ER) | payer MEDICAID, SELFPAY ==
[2024-01-13] VITALS (10 sets, daily range): BP systolic 175–217; BP diastolic 95–114; PULSE 78–87; RESP 14–22; TEMP 37.1; O2SAT 93
--- NOTE | 2024-01-13 14:15 | RT.EKG_ITS ---
APPROVED REPORT Exam: Resting ECG Reason for Exam: HTN, dizzy Patient Location: E HR:73 bpm ECG Measurements Heart Rate 73 AXIS NC 177 P 55 QRSd 82 QRS 48 QT 356 T 70 QTc 393 Conclusion Sinus rhythm...normal P axis, V-rate 60- 99 Normal Electrocardiogram
[2024-01-13] MEDS: LORazepam 2 MG/ML VIAL 1 MG IVP (15:09)
[2024-01-13 15:13] LABS: Abs Immature Grans 0.03 10^3/uL (0.0-0.06); Absolute Basophil Count 0.06 10^3/uL (0.0-0.2); Absolute Eosinophil Count 0.09 10^3/uL (0.0-0.7); Absolute Monocyte Count 0.73 10^3/uL (0.1-0.8); Absolute Neutrophil Count 6.83 10^3/uL (1.2-6.7); Basophils % 0.6; Eosinophils % 0.9; HCT 43.9 % (40.0-50.0); Immature Grans % 0.3; Lymphocytes % 19.7; MCH 30.4 pg (27.0-33.0); MCHC 31.9 % (32.0-36.0); MCV 95 fL (80-95); MPV 12.3 fL (8.0-11.0); Monocytes % 7.6; Neutrophils % 70.9; Platelet Count 155 10^3/uL (130-400); RDW 13.3 % (11.8-14.1); RDW-SD 46.8 fL; WBC 9.64 10^3/uL (4.4-10.8)
--- NOTE | 2024-01-13 15:16 | W.ED.GENAD ---
Discharge Plan Disposition Patient Disposition: Home Discharge Details Clinical Impression: Elevated blood pressure reading Primary Care Provider: Lisa Haley ED Provider: Paige Acharya Home Meds and New Rx's Prescriptions: Continued cetirizine 10 mg tablet 10 mg PO DAILY PRN montelukast 10 mg tablet 10 mg PO QHS ferrous gluconate [Ferate] 240 mg (27 mg iron) tablet 240 mg PO DAILY escitalopram oxalate 20 mg tablet 20 mg PO DAILY atorvastatin 40 mg tablet 40 mg PO DAILY buspirone 10 mg tablet 10 mg PO TID buspirone 5 mg tablet 5 mg PO TID PRN cyclobenzaprine 10 mg tablet 10 mg PO HS PRN lisinopril-hydrochlorothiazide 20-25 mg tablet 2 tab PO DAILY metformin 500 mg tablet 500 mg PO BID Discharge Instructions Additional Instructions: Take 1 tablet of your lisinopril and hydrochlorothiazide combination this evening and take 2 in the morning follow-up with your doctor for blood pressure check on Thursday Watch the amount of sodium in your diet Please return should you develop worsening headache, chest pain, shortness of breath, or any new or worsening symptoms Follow-up with your manufacturing engineering manager as discussed Discharge Data Discharge Date/Time-TO BE ENTERED AT DEPARTURE: 01/13/24 15:53 HPI General Date/Time Provider Initiated Documentation: 01/13/24 14:26. HPI Narrative: This 48-year-old male presents with report of about elevated blood pressure at home. States he checked his blood pressure as he felt lightheaded. He denies any chest pain, shortness of breath, headache, recent upper respiratory symptoms, fever, chills. Patient denies any new calf pain or swelling denies urinary symptoms. Denies any nausea or vomiting. Denies any vision change. Related Data Home Medications Medication Instructions Recorded Confirmed cetirizine 10 mg tablet 10 mg PO DAILY PRN 08/26/22 01/13/24 escitalopram oxalate 20 mg tablet 20 mg PO DAILY 08/26/22 01/13/24 ferrous gluconate 240 mg (27 mg 240 mg PO DAILY 08/26/22 01/13/24 iron) tablet (Ferate) montelukast 10 mg tablet 10 mg PO QHS 08/26/22 01/13/24 atorvastatin 40 mg tablet 40 mg PO DAILY 12/31/23 01/13/24 buspirone 10 mg tablet 10 mg PO TID 12/31/23 01/13/24 buspirone 5 mg tablet 5 mg PO TID PRN 12/31/23 01/13/24 cyclobenzaprine 10 mg tablet 10 mg PO HS PRN 12/31/23 01/13/24 lisinopril 20 2 tab PO DAILY 01/04/24 01/13/24 mg-hydrochlorothiazide 25 mg tablet metformin 500 mg tablet 500 mg PO BID 01/04/24 01/13/24 Allergies Allergy/AdvReac Type Severity Reaction Status Date / Time Penicillins Allergy Intermediate Skin Rash Verified 01/13/24 14:14 Sulfa (Sulfonamide Allergy Intermediate Skin Rash Verified 01/13/24 14:14 Antibiotics) General Stated Complaint: GenMedical ALESHA: 3 Course Vital Signs Vital signs: Vital Signs Temperature 37.1 C 01/13/24 14:10 Pulse 85 01/13/24 14:10 Respiratory Rate 20 01/13/24 14:10 Blood Pressure 217/114 H 01/13/24 14:10 Pulse Oximetry 93 01/13/24 14:10 Temperature 37.1 C 01/13/24 14:35 Temperature Source Tympanic 01/13/24 14:35 Pulse 85 01/13/24 14:35 Respiratory Rate 20 01/13/24 14:35 Respiratory Effort Normal 01/13/24 14:35 Respiratory Depth Normal 01/13/24 14:35 Respiratory Pattern Normal 01/13/24 14:35 Blood Pressure 217/114 H 01/13/24 14:35 Blood Pressure Position Sitting 01/13/24 14:35 Pulse Oximetry 93 01/13/24 14:35 Oxygen Delivery Method Room Air 01/13/24 14:35 Oxygen Flow Rate 0 01/13/24 14:35 Pain Level 0 01/13/24 14:35 Lab/Test Results Lab/Test Results: Laboratory Tests Range/Units 01/13/24 15:00 WBC (4.4-10.8) 10^3/uL 9.64 RBC (4.36-5.78) 10^6/uL 4.60 Hgb (13.5-17.5) g/dL 14.0 Hct (40.0-50.0) % 43.9 MCV (80-95) fL 95 MCH (27.0-33.0) pg 30.4 MCHC (32.0-36.0) % 31.9 L RDW (11.8-14.1) % 13.3 Plt Count (130-400) 10^3/uL 155 MPV (8.0-11.0) fL 12.3 H Immature Gran % 0.3 Neutrophils % 70.9 Lymphocytes % 19.7 Monocytes % 7.6 Eosinophils % 0.9 Basophils % 0.6 Nucleated RBC % (0.0-0.3) % 0.0 Absolute Neutrophils (1.2-6.7) 10^3/uL 6.83 H Absolute Lymphocytes (1.2-3.4) 10^3/uL 1.90 Absolute Monocytes (0.1-0.8) 10^3/uL 0.73 Absolute Eosinophils (0.0-0.7) 10^3/uL 0.09 Absolute Basophils (0.0-0.2) 10^3/uL 0.06 Medical Decision Making 48-year-old male, alert, oriented, quite anxious on assessment Pupils equal round reactive to light and accommodation, cardiac rate rhythm regular, no peripheral edema, lungs clear to auscultation bilaterally, cranial nerves II through XII intact, amatory steady gait, denies headache or current lightheadedness or dizziness Ativan 1 mg given, blood pressure 175/95, turns out, patient was started on higher doses medication which she is yet to initiate, he will do this tonight when he returns home and will reassess with his primary care physician next week There is no clinical evidence of hypertensive emergency at time of this assessment, specifically no evidence of endorgan failure Patient discharged home in stable condition with stable vitals with stable exam and improved blood pressure Quality:SDOH Health Related Social Needs: No Data to Display PFSH All Active Problems (Updated 01/13/24 @ 15:41 by UMESH Dalton) Elevated blood pressure reading (Acute) Internal hemorrhoids (Acute) Incisional hernia (Acute) Hypertension (Acute) Encounter for surgical aftercare following surgery on the digestive system (Acute) Leukocytosis (Acute) Pleural effusion, left (Acute) Anxiety about health (Acute) Anemia (Chronic) Open wound anterior abdominal wall (Acute) Congenital platelet function defects (Acute) Medical History (Updated 01/13/24 @ 15:41 by UMESH Dalton) Polyp of nasal cavity Pain, joint, shoulder, right Pain, joint, shoulder, left Spasm of back muscles Sciatica Neck pain Eczema Constipation Umbilical hernia GERD (gastroesophageal reflux disease) Seasonal allergic rhinitis Chronic sinusitis Peripheral venous insufficiency Residual hemorrhoidal skin tags Varicose veins of lower extremity Learning difficulty Anxiety disorder Major depression Hereditary factor VII deficiency Obesity Iron deficiency Disorder of iron metabolism Hyperlipidemia Vitamin B deficiency Type 2 diabetes mellitus without complication Fatigue Pleural effusion Anemia, iron deficiency Hemosiderosis Sinusitis Venous insufficiency Obstructive sleep apnea Obesity, morbid, BMI 40.0-49.9 Nonsustained paroxysmal ventricular tachycardia Tendency toward bleeding easily Depression Thoracic myofascial strain Lumbar strain Hernia of abdominal wall GERD without esophagitis Surgical History (Updated 01/04/24 @ 09:29 by Cleo Smith) History of tonsillectomy and adenoidectomy S/P vein stripping S/P small bowel resection (~08/23/19) S/P appendectomy S/P exploratory laparotomy (~08/23/19) Family History (Updated 01/04/24 @ 09:25 by Cleo Smith) Paternal Uncle Cancer unknown type of cancer; was a smoker Father Hypertension Heart failure Maternal Grandfather Hypertension Maternal Grandmother Hypertension Arthritis Paternal Grandmother Alzheimer disease Other Heart disease Social History Smoking/Tobacco Use Status: Never Smoking risk assessment performed?: Yes Alcohol Intake: never Drug use: Never Substance use type: does not use Household members: significant other and children Current gender identity: male Do you feel safe at home: Yes Do you feel safe in your relationship?: Yes
[2024-01-13 15:28] LABS: ALT 62 U/L (16-63); AST 43 U/L (15-37); Albumin 3.3 g/dL (3.4-5.0); Alkaline Phosphatase 119 U/L (46-116); Anion Gap 5.1 mmol/L (3-11); BUN 10 mg/dL (7-18); CO2 32.9 mmol/L (21.0-32.0); Calcium 8.3 mg/dL (8.5-10.1); Chloride 103 mmol/L (98-107); Estimated GFR 93.42 (mL/min/1.73m2); Glucose 90 mg/dL (74-106); Potassium 4.1 mmol/L (3.5-5.1); Sodium 141 mmol/L (136-145); Total Protein 6.9 g/dL (6.4-8.2)
== END 2024-01-13 15:53 | disposition home or self-care (01) ==
LOC: ER 16:00
PROVIDERS: Emergency Provider Physician Assistant; PCP Nurse Practitioner Family
DX: R42 Dizziness and giddiness (principal); I10 Essential (primary) hypertension; D86.2 Sarcoidosis of lung with sarcoidosis of lymph nodes; E11.9 Type 2 diabetes mellitus without complications; Z79.84 Long term (current) use of oral hypoglycemic drugs
CPT/HCPCS: 80053; 93005; 96374; 99284; 85025; 93010; 99283; J2060

== ENCOUNTER 2024-01-29 15:40 | Outpatient (CLI) | payer MEDICAID, SELFPAY ==
[2024-01-29 17:03] LABS: Vitamin D 25 Total 24.5 ng/mL (30-100)
[2024-01-29 17:09] LABS: TSH 2.78 uIU/Ml (0.36-3.74); Vitamin B12 791 pg/mL (193-986)
[2024-02-03 15:13] LABS: Testosterone, Total 163 ng/dL (240-950)
== END 2024-01-29 15:41 | disposition home or self-care (01) ==
LOC: LBO 15:41
PROVIDERS: PCP Nurse Practitioner Family; Visit Provider Registered Nurse
DX: F41.1 Generalized anxiety disorder (principal)
CPT/HCPCS: 36415; 82306; 84403; 82607; 84443

== ENCOUNTER → 2024-02-17 14:53 | Outpatient (CLI) | payer MEDICAID, SELFPAY ==
--- NOTE | 2024-02-17 | DI.RAD_ITS ---
Exam(s) XR LUMBAR SPINE COMPLETE EXAM: XR LUMBAR SPINE COMPLETE CLINICAL HISTORY: LOW BACK PAIN M54.50. TECHNIQUE: 2D digital imaging was performed of the lumbar spine. Five images were obtained. AP, la teral, right oblique, left oblique and L5-S1 spot views were obtained. COMPARISON: CR XR LUMBAR SPINE COMPLETE from 05/23/2022 FINDINGS: Stable multilevel degenerative changes are present with disc space narrowing and endplate osteophytes . Facet arthropathy is present. No acute fracture or subluxation. No spondylolysis or spondylolist hesis. IMPRESSION: Stable degenerative changes in the lumbar spine. DATA REPOSITORY: RADIATION DOSE DELIVERED:
== END ==
PROVIDERS: PCP Nurse Practitioner Family; Visit Provider Nurse Practitioner Family
DX: M51.36 Other intervertebral disc degeneration, lumbar region (principal)
CPT/HCPCS: 72110

== ENCOUNTER 2024-02-18 05:25 | Outpatient (CLI) | payer MEDICAID, SELFPAY ==
[2024-02-18 13:53] LABS: Hemoglobin A1C 6.6 % (<5.7)
[2024-02-18 14:47] LABS: ALT 39 U/L (16-63); AST 37 U/L (15-37); Albumin 3.5 g/dL (3.4-5.0); Alkaline Phosphatase 125 U/L (46-116); BUN 14 mg/dL (7-18); Bilirubin, Total 0.8 mg/dL (0.2-1.0); CREATININE 1.1 mg/dL (0.70-1.30); Calcium 8.4 mg/dL (8.5-10.1); Chloride 102 mmol/L (98-107); Estimated GFR 83.32 (mL/min/1.73m2); Glucose 144 mg/dL (74-106); Potassium 3.8 mmol/L (3.5-5.1); Sodium 141 mmol/L (136-145); Total Protein 7.4 g/dL (6.4-8.2)
== END 2024-02-18 05:26 | disposition home or self-care (01) ==
LOC: LBO 05:25
PROVIDERS: PCP Nurse Practitioner Family; Visit Provider Nurse Practitioner Family
DX: E11.9 Type 2 diabetes mellitus without complications (principal); I10 Essential (primary) hypertension
CPT/HCPCS: 36415; 80053; 83036

== ENCOUNTER 2024-05-19 13:47 | Outpatient (REF) | payer MEDICAID, SELFPAY ==
[2024-05-19 20:32] LABS: ALT 47 U/L (16-63); AST 42 U/L (15-37); Albumin 3.7 g/dL (3.4-5.0); Alkaline Phosphatase 115 U/L (46-116); Anion Gap 6.7 mmol/L (3-11); BUN 10 mg/dL (7-18); Bilirubin, Total 0.96 mg/dL (0.2-1.0); CO2 33.3 mmol/L (21.0-32.0); Calcium 8.8 mg/dL (8.5-10.1); Chloride 99 mmol/L (98-107); Cholesterol 211 mg/dL (<200); Estimated GFR 93.42 (mL/min/1.73m2); Glucose 103 mg/dL (74-106); HDL Cholesterol 35 mg/dL (40-60); Potassium 3.8 mmol/L (3.5-5.1); Sodium 139 mmol/L (136-145); Total Protein 7.5 g/dL (6.4-8.2); Triglyceride 428 mg/dL (<150)
[2024-05-19 20:38] LABS: Hemoglobin A1C 6.6 % (<5.7)
[2024-05-19 20:48] LABS: LDL CHOLESTEROL 114 mg/dL (<100)
== END 2024-05-19 13:48 | disposition home or self-care (01) ==
LOC: NCHCN 13:47
PROVIDERS: Visit Provider Nurse Practitioner Family
DX: I10 Essential (primary) hypertension (principal); E11.9 Type 2 diabetes mellitus without complications; E78.5 Hyperlipidemia, unspecified
CPT/HCPCS: 80053; 80061; 83721; 83036

== ENCOUNTER 2024-07-07 02:00 | Outpatient (CLI) | payer MEDICAID, SELFPAY ==
[2024-07-10 13:36] LABS: Testosterone, Total 107 ng/dL (240-950)
== END 2024-07-07 02:01 | disposition home or self-care (01) ==
LOC: LBO 02:00
PROVIDERS: PCP Nurse Practitioner Family; Visit Provider Registered Nurse
DX: F41.1 Generalized anxiety disorder (principal); F33.1 Major depressive disorder, recurrent, moderate
CPT/HCPCS: 36415; 84403

== ENCOUNTER 2024-07-10 11:56 | Emergency (ER) | payer MEDICAID, SELFPAY ==
[2024-07-10 12:01] VITALS: BP 122/77; PULSE 115; RESP 16; TEMP 39.2; O2SAT 90
[2024-07-10 12:07] VITALS: TEMP 39.2; O2SAT 90
--- NOTE | 2024-07-10 12:15 | RT.EKG_ITS ---
APPROVED REPORT Exam: Resting ECG Reason for Exam: nausea Patient Location: E HR:104 bpm ECG Measurements Heart Rate 104 AXIS GA 159 P 72 QRSd 108 QRS -77 QT 335 T 81 QTc 441 Conclusion Sinus tachycardia...rate> 99 Left ventricular hypertrophy...multiple LVH criteria ST elevation secondary to LVH...Multiple VCG criteria
--- NOTE | 2024-07-10 12:44 | W.ED.GENAD ---
Discharge Plan Disposition Patient Disposition: Home Condition: Stable Discharge Details Clinical Impression: COVID, CAP (community acquired pneumonia) Primary Care Provider: Lisa Haley ED Provider: Shaquille Martinez [place] Meds and New Rx's Prescriptions: New prednisone 20 mg tablet 60 mg PO DAILY 4 Days Qty: 12 0RF levofloxacin 750 mg tablet 750 mg PO DAILY Qty: 5 0RF ondansetron 4 mg tablet,disintegrating 4 mg PO Q8H PRN (Reason: nausea and vomiting) Qty: 30 0RF Paxlovid 300 mg (150 mg x 2)-100 mg tablets,dose pack See Rx Instructions .ROUTE .COMPLEX Qty: 30 0RF Rx Instructions: take TWO 150 mg tablets of nirmatrelvir with ONE 100 mg tablet of ritonavir twice daily for 5 days Continued cetirizine 10 mg tablet 10 mg PO DAILY PRN montelukast 10 mg tablet 10 mg PO QHS ferrous gluconate [Ferate] 240 mg (27 mg iron) tablet 240 mg PO DAILY escitalopram oxalate 20 mg tablet 20 mg PO DAILY buspirone 10 mg tablet 10 mg PO TID buspirone 5 mg tablet 5 mg PO TID PRN cyclobenzaprine 10 mg tablet 10 mg PO HS PRN lisinopril-hydrochlorothiazide 20-25 mg tablet 2 tab PO DAILY metformin 500 mg tablet 500 mg PO BID cyanocobalamin (vitamin B-12) 1,000 mcg tablet 1,000 mcg PO DAILY Patient Comments: take 1 tablet by mouth once daily potassium chloride 10 mEq tablet extended release 10 meq PO DAILY Patient Comments: take 1 tablet by mouth daily as directed FOR LOW POTASSIUM LEVEL hydrocortisone [Procto-Med HC] 2.5 % cream with perineal applicator 1 applic AR DAILY Patient Comments: APPLY A SMALL AMOUNT TO AFFECTED AREA FOR 2 WEEKS propranolol 10 mg tablet 10 mg PO BID Patient Comments: take 1 tablet by mouth twice a day if needed for anxiety lisinopril 10 mg tablet 10 mg PO DAILY Patient Comments: take 1 tablet by mouth once daily FOR BLOOD PRESSURE IN ADDITION TO YOUR COMBINATION PILL metformin 500 mg tablet extended release 24 hr 500 mg PO BID Patient Comments: take 1 tablet by mouth twice a day bupropion HCl 150 mg tablet extended release 24 hr 150 mg PO DAILY Patient Comments: take 1 tablet by mouth every morning (SWALLOW WHOLE) Held atorvastatin 40 mg tablet 40 mg PO DAILY Hold Instructions: Resume on 07/18/24. rosuvastatin 20 mg tablet 20 mg PO DAILY Hold Instructions: Resume on 07/18/24. Patient Comments: take 1 tablet by mouth at bedtime FOR HIGH CHOLESTEROL Discharge Instructions Additional Instructions: You are being treated for COVID and pneumonia Follow-up with your primary care provider especially now improving within a week If you feel more ill, have worsening shortness of breath or persistent vomiting return to the emergency department for reevaluation. HPI General Mode of arrival: ambulatory. Date/Time Provider Initiated Documentation: 07/10/24 12:12. Limitations to Documentation: no limitations. Information obtained by: patient. History of Present Illness 49 year old M presents to the emergency department with the chief complaint of fever, described as moderate, Patient started experiencing this day(s) (3) and it has been constant. No exacerbating factors reported . Patient notes fever/chills, nausea/vomiting and other (body aches). Patient did receive the following treatments prior to arrival, NSAID Related Data Home Medications ?Medication ?Instructions ?Recorded ?Confirmed cetirizine 10 mg tablet 10 mg PO DAILY PRN 08/26/22 07/10/24 escitalopram oxalate 20 mg tablet 20 mg PO DAILY 08/26/22 07/10/24 ferrous gluconate 240 mg (27 mg 240 mg PO DAILY 08/26/22 07/10/24 iron) tablet (Ferate) montelukast 10 mg tablet 10 mg PO QHS 08/26/22 07/10/24 atorvastatin 40 mg tablet 40 mg PO DAILY 12/31/23 07/10/24 buspirone 10 mg tablet 10 mg PO TID 12/31/23 07/10/24 buspirone 5 mg tablet 5 mg PO TID PRN 12/31/23 07/10/24 cyclobenzaprine 10 mg tablet 10 mg PO HS PRN 12/31/23 07/10/24 lisinopril 20 2 tab PO DAILY 01/04/24 07/10/24 mg-hydrochlorothiazide 25 mg tablet metformin 500 mg tablet 500 mg PO BID 01/04/24 07/10/24 bupropion HCl 150 mg 24 hr tablet, 150 mg PO DAILY 07/10/24 07/10/24 extended release cyanocobalamin (vitamin B-12) 1,000 mcg PO DAILY 07/10/24 07/10/24 1,000 mcg tablet hydrocortisone 2.5 % topical cream 1 applic AR DAILY 07/10/24 07/10/24 with perineal applicator (Procto-Med ) levofloxacin 750 mg tablet 750 mg PO DAILY #5 tabs 07/10/24 lisinopril 10 mg tablet 10 mg PO DAILY 07/10/24 07/10/24 metformin 500 mg tablet,extended 500 mg PO BID 07/10/24 07/10/24 release 24 hr nirmatrelvir 300 mg (150 mg See Rx Instructions PO .COMPLEX 07/10/24 x2)-ritonavir 100 mg tablet,dose #30 dose pk pack (Paxlovid) ondansetron 4 mg disintegrating 4 mg PO Q8H PRN nausea and 07/10/24 tablet vomiting #30 tabs potassium chloride 10 mEq 10 meq PO DAILY 07/10/24 07/10/24 tablet,extended release prednisone 20 mg tablet 60 mg (3 x 20 mg) PO DAILY 4 days 07/10/24 #12 tabs propranolol 10 mg tablet 10 mg PO BID 07/10/24 07/10/24 rosuvastatin 20 mg tablet 20 mg PO DAILY 07/10/24 07/10/24 Previous Rx's ?Medication ?Instructions ?Recorded levofloxacin 750 mg tablet 750 mg PO DAILY #5 tabs 07/10/24 nirmatrelvir 300 mg (150 mg See Rx Instructions PO .COMPLEX 07/10/24 x2)-ritonavir 100 mg tablet,dose #30 dose pk pack (Paxlovid) ondansetron 4 mg disintegrating 4 mg PO Q8H PRN nausea and 07/10/24 tablet vomiting #30 tabs prednisone 20 mg tablet 60 mg (3 x 20 mg) PO DAILY 4 days 07/10/24 #12 tabs Allergies Allergy/AdvReac Type Severity Reaction Status Date / Time Penicillins Allergy Intermediate Skin Rash Verified 07/10/24 12:11 Sulfa (Sulfonamide Allergy Intermediate Skin Rash Verified 07/10/24 12:11 Antibiotics) General Stated Complaint: Abd Prob ALESHA: 3 Review of Systems All systems reviewed & are unremarkable except as noted in HPI and below Constitutional Constitutional: Reports chills and Reports fever(s) Cardiovascular Cardiovascular: Denies chest pain and Denies dyspnea Respiratory Respiratory: Denies cough and Denies dyspnea Gastrointestinal Gastrointestinal: Denies abdominal pain, Reports nausea and Reports vomiting Genitourinary Genitourinary: Denies dysuria Integumentary/Breasts Skin/Breast: Denies rash Exam Const General: no acute distress Orientation: alert [facility] Head: normal to inspection Ears: external ears normal General nose exam: external nose normal Mouth: moist mucous membranes Eyes General: appearance normal, both eyes and all related structures Neck Neck: normal visual inspection Resp Effort & Inspection: normal respiratory effort and able to speak in complete sentences Auscultation: clear to auscultation bilaterally Cardio Jugular venous pressure: no JVD Rate: regular rate GI Palpation: soft and nontender Skin General skin exam: no rashes or lesions noted Neuro General: patient alert and patient oriented x3 Extrem General: normal to inspection Psych Mental Status: mental status grossly normal Course Vital Signs Vital signs: Vital Signs Temperature 39.2 C H 07/10/24 12:01 Pulse 115 H 07/10/24 12:01 Respiratory Rate 16 07/10/24 12:01 Blood Pressure 122/77 07/10/24 12:01 Pulse Oximetry 90 L 07/10/24 12:01 Temperature 39.2 C H 07/10/24 12:07 Temperature Source Oral 07/10/24 12:07 Pulse 115 H 07/10/24 12:01 Respiratory Rate 16 07/10/24 12:01 Respiratory Effort Normal 07/10/24 12:07 Blood Pressure 122/77 07/10/24 12:01 Blood Pressure Position Sitting 07/10/24 12:01 Pulse Oximetry 90 L 07/10/24 12:07 Oxygen Delivery Method Room Air 07/10/24 12:07 Oxygen Flow Rate 0 07/10/24 12:01 Pain Level 8 07/10/24 12:01 Lab/Test Results Lab/Test Results: 07/10/24 12:35 Blood Blood Culture - Pending 07/10/24 12:35 Blood Blood Culture - Pending Medical Decision Making 49-year-old male with a history of hypertension, anxiety who comes in with 3 days of fevers and bodyaches. He has also had intermittent nausea and vomiting. He denies any difficulty breathing, chest pain has mild headaches. He denies any severe abdominal pain, no rashes, no IV drug use. He is alert and oriented x 4 on arrival speaking clearly, he has clear lung sounds, soft nontender abdomen, no meningismus. Given his body aches and fever I suspect he has COVID and flu, will check CBC, CMP and procalcitonin and chest x-ray and also Fluvid and reassess. Patient feeling much better, labs remarkable for white count of 17, mildly low potassium at 3.0 COVID is positive and he also has a right upper lobe infiltrate. I discussed results with him and discussed admission for IV antibiotics and observation, he is not currently requiring oxygen, room air sats are in the 93-95 range of my exam. After discussion with him and he has medical decision-making pasty he prefers trial of outpatient management. I will provide him oral Levaquin. Will start paxlovid as well and have him hold his statin. He states he has had vaccines in the past so low likelihood of progressing to severe disease. He will follow-up with his PCP and return precautions given Differential Diagnosis Differential Diagnosis: Flu, COVID, pneumonia Medical Records Medical records reviewed: Yes I reviewed the patient's medical records. Lab Data Lab results reviewed: Yes I reviewed the patient's lab results. ECG Data Attestation: I personally reviewed and interpreted this ECG (s) as follows: Prior ECG tracings: available for review Interpretation: Sinus tachycardia, rate 104, AR 159, no STEMI Quality:SDOH Health Related Social Needs: No Data to Display [facility] All Active Problems (Updated 07/10/24 @ 15:10 by Shaquille Martinez MD) CAP (community acquired pneumonia) (Acute) COVID (Acute) Impacted cerumen of both ears (Acute) Internal hemorrhoids (Acute) Incisional hernia (Acute) Hypertension (Acute) Encounter for surgical aftercare following surgery on the digestive system (Acute) Leukocytosis (Acute) Pleural effusion, left (Acute) Anxiety about health (Acute) Anemia (Chronic) Open wound anterior abdominal wall (Acute) Congenital platelet function defects (Acute) Medical History (Updated 07/10/24 @ 15:10 by Shaquille Martinez MD) Polyp of nasal cavity Pain, joint, shoulder, right Pain, joint, shoulder, left Spasm of back muscles Sciatica Neck pain Eczema Constipation Umbilical hernia GERD (gastroesophageal reflux disease) Seasonal allergic rhinitis Chronic sinusitis Peripheral venous insufficiency Residual hemorrhoidal skin tags Varicose veins of lower extremity Learning difficulty Anxiety disorder Major depression Hereditary factor VII deficiency Obesity Iron deficiency Disorder of iron metabolism Hyperlipidemia Vitamin B deficiency Type 2 diabetes mellitus without complication Fatigue Pleural effusion Anemia, iron deficiency Hemosiderosis Sinusitis Venous insufficiency Obstructive sleep apnea Obesity, morbid, BMI 40.0-49.9 Nonsustained paroxysmal ventricular tachycardia Tendency toward bleeding easily Depression Thoracic myofascial strain Lumbar strain Hernia of abdominal wall GERD without esophagitis Surgical History (Updated 01/04/24 @ 09:29 by Cleo Smith) History of tonsillectomy and adenoidectomy S/P vein stripping S/P small bowel resection (~08/23/19) S/P appendectomy S/P exploratory laparotomy (~08/23/19) Family History (Updated 01/04/24 @ 09:25 by Cleo Smith) Paternal Uncle Cancer unknown type of cancer; was a smoker Father Hypertension Heart failure Maternal Grandfather Hypertension Maternal Grandmother Hypertension Arthritis Paternal Grandmother Alzheimer disease Other Heart disease Social History Smoking/Tobacco Use Status: Never Smoking risk assessment performed?: Yes Alcohol Intake: never Drug use: Never Substance use type: does not use Household members: significant other and children Current gender identity: male Do you feel safe at home: Yes Do you feel safe in your relationship?: Yes
[2024-07-10 13:17] LABS: Lactate 1.4 mmol/L (0.6-1.4)
[2024-07-10 13:20] LABS: Abs Immature Grans 0.12 10^3/uL (0.0-0.06); Absolute Lymphocyte Count 0.86 10^3/uL (1.2-3.4); Absolute Monocyte Count 1.88 10^3/uL (0.1-0.8); Basophils % 0.3 %; Eosinophils % 5.6 %; HGB 14.4 g/dL (13.5-17.5); Immature Grans % 0.7 %; Lymphocytes % 4.9 %; MCHC 32.7 % (32.0-36.0); MCV 95 fL (80-95); MPV 12.5 fL (8.0-11.0); Monocytes % 10.7 %; Neutrophils % 77.8 %; Platelet Count 145 10^3/uL (130-400); RBC 4.64 10^6/uL (4.36-5.78); RDW 13.5 % (11.8-14.1); RDW-SD 47.1 fL; WBC 17.55 10^3/uL (4.4-10.8)
[2024-07-10 13:21] LABS: Absolute Basophil Count 0.05 10^3/uL (0.0-0.2); Absolute Eosinophil Count 0.98 10^3/uL (0.0-0.7); Absolute Neutrophil Count 13.65 10^3/uL (1.2-6.7)
--- NOTE | 2024-07-10 13:25 | DI.RAD_ITS ---
Exam(s) XR CHEST 2V PA LATERAL EXAM: XR CHEST 2V PA LATERAL CLINICAL HISTORY: fever TECHNIQUE: 2D digital imaging was performed. Two views. COMPARISON: CT CT CHEST WO from 11/20/2022 FINDINGS: HEART: Normal size. Aorta: Not dilated. PULMONARY VASCULATURE: Normal. MEDIASTINUM: Unremarkable. LUNGS: Large area dense consolidation in the right upper lobe. Remainder of the lung thompson appear c lear peer PLEURAL SPACE: No pneumothorax. Tiny bilateral pleural effusions. BONE:Scoliosis and degenerative changes. SOFT TISSUES: Unremarkable. IMPRESSION: Right upper lobe pneumonia. DATA REPOSITORY: RADIATION DOSE DELIVERED:
[2024-07-10] MEDS: Normal Saline 1,000 ML 1000 ML IV (13:38)
[2024-07-10 13:41] LABS: Diff Comment Diff Reviewed; RBC Morphology Normal
[2024-07-10 13:42] LABS: ALT 29 U/L (16-63); AST 29 U/L (15-37); Albumin 3.2 g/dL (3.4-5.0); Alkaline Phosphatase 115 U/L (46-116); Anion Gap 7.5 mmol/L (3-11); BUN 11 mg/dL (7-18); CO2 33.5 mmol/L (21.0-32.0); CREATININE 1.2 mg/dL (0.70-1.30); Calcium 8.6 mg/dL (8.5-10.1); Chloride 93 mmol/L (98-107); Glucose 128 mg/dL (74-106); Magnesium 1.7 mg/dL (1.8-2.4); Sodium 134 mmol/L (136-145); Total Protein 8.1 g/dL (6.4-8.2)
[2024-07-10] MEDS: ACETAMINOPHEN 1,000 MG/100 ML BTL 400 MG IVPB (13:52)
[2024-07-10 13:57] LABS: Influenza A PCR Negative (Negative); Influenza B PCR Negative (Negative); RSV PCR Negative (Negative)
[2024-07-10 13:59] LABS: COVID-19 PCR Positive (Negative); Source Nasopharynx
[2024-07-10 14:00] LABS: Procalcitonin 0.7 ng/mL
--- NOTE | 2024-07-10 14:51 | DI.VRAD_ITS ---
PROCEDURE INFORMATION: Exam: XR Chest Exam date and time: 07/10/2024 1:23 PM Age: 49 years old Clinical indication: Fever TECHNIQUE: Imaging protocol: Radiologic exam of the chest. Views: 2 views. COMPARISON: CT CHEST WO 11/20/2022 9:52 AM FINDINGS: Lungs: Right upper lobe airspace opacity. Pleural spaces: No pneumothorax. No sizable pleural effusion. Heart/Mediastinum: No cardiomegaly. Bones/joints: Unremarkable. IMPRESSION: Right upper lobe airspace opacity raising concern for pneumonia. Dictated and Authenticated by: Felix Adorno MD. Ordering:STEVE Corbin MD
[2024-07-10 15:32] VITALS: BP 145/80; PULSE 82; RESP 20; TEMP 37.7; O2SAT 98
[2024-07-10] MEDS: levoFLOXacin 500 MG, levoFLOXacin 250 MG 750 MG PO (15:32)
== END 2024-07-10 15:34 | disposition home or self-care (01) ==
PROVIDERS: Emergency Provider Emergency Medicine; PCP Nurse Practitioner Family
DX: U07.1 COVID-19 (principal); R10.9 Unspecified abdominal pain; R11.2 Nausea with vomiting, unspecified; R50.9 Fever, unspecified; Z11.52 Encounter for screening for COVID-19
CPT/HCPCS: 36416; 80053; 82962; 84145; 87040; 87637; 93005; 96374; 99284; 71046; 83605; 83735; 85025; 93010; J0131

== ENCOUNTER 2024-08-23 13:20 | Outpatient (REF) | payer MEDICAID, SELFPAY ==
[2024-08-23 20:20] LABS: ALT 31 U/L (16-63); AST 40 U/L (15-37); Albumin 3.5 g/dL (3.4-5.0); Alkaline Phosphatase 130 U/L (46-116); Anion Gap 7.2 mmol/L (3-11); BUN 11 mg/dL (7-18); Bilirubin, Total 0.84 mg/dL (0.2-1.0); CO2 31.8 mmol/L (21.0-32.0); Chloride 103 mmol/L (98-107); Estimated GFR 92.84 (mL/min/1.73m2); Glucose 109 mg/dL (74-106); Potassium 4.6 mmol/L (3.5-5.1); Sodium 142 mmol/L (136-145); Total Protein 7.5 g/dL (6.4-8.2)
== END 2024-08-23 13:21 | disposition home or self-care (01) ==
LOC: NCHCN 13:20
PROVIDERS: PCP Nurse Practitioner Family; Visit Provider Nurse Practitioner Family
DX: E11.9 Type 2 diabetes mellitus without complications (principal); E83.42 Hypomagnesemia
CPT/HCPCS: 80053; 83735

== ENCOUNTER 2024-12-29 14:38 | Outpatient (REF) | payer MEDICAID, SELFPAY ==
[2024-12-29 19:17] LABS: Abs Immature Grans 0.03 10^3/uL (0.0-0.06); Absolute Basophil Count 0.09 10^3/uL (0.0-0.2); Absolute Eosinophil Count 0.35 10^3/uL (0.0-0.7); Absolute Lymphocyte Count 1.74 10^3/uL (1.2-3.4); Absolute Monocyte Count 0.55 10^3/uL (0.1-0.8); Absolute Neutrophil Count 5.81 10^3/uL (1.2-6.7); Basophils % 1.1 %; Eosinophils % 4.1 %; HGB 14.7 g/dL (13.5-17.5); Immature Grans % 0.4 %; Lymphocytes % 20.3 %; MCH 30.1 pg (27.0-33.0); MCHC 32.7 % (32.0-36.0); MCV 92 fL (80-95); Monocytes % 6.4 %; Neutrophils % 67.7 %; Platelet Count 156 10^3/uL (130-400); RBC 4.89 10^6/uL (4.36-5.78); RDW 13.8 % (11.8-14.1); RDW-SD 47.2 fL; WBC 8.57 10^3/uL (4.4-10.8)
[2024-12-29 19:37] LABS: Iron 67 ug/dL (65-175); Total Iron Binding Capacity 327 ug/dL (250-450)
[2024-12-29 20:00] LABS: Hemoglobin A1C 6.1 % (<5.7)
[2024-12-29 20:03] LABS: COMMENT (LAB VIEW ONLY) 113.75 mg/dL; Microalb ug/mg Crea 5.2 ug/mg Cr
[2024-12-29 20:17] LABS: ALT 37 U/L (16-63); AST 45 U/L (15-37); Albumin 3.6 g/dL (3.4-5.0); Alkaline Phosphatase 131 U/L (46-116); Anion Gap 7.5 mmol/L (3-11); BUN 15 mg/dL (7-18); Bilirubin, Total 0.6 mg/dL (0.2-1.0); CO2 29.5 mmol/L (21.0-32.0); Calcium 8.7 mg/dL (8.5-10.1); Chloride 104 mmol/L (98-107); Cholesterol 232 mg/dL (<200); Estimated GFR 92.84 (mL/min/1.73m2); Glucose 141 mg/dL (74-106); HDL Cholesterol 31 mg/dL (>or=40); Magnesium 1.9 mg/dL; Potassium 4.2 mmol/L (3.5-5.1); Sodium 141 mmol/L (136-145); TSH 2.18 uIU/mL (0.36-3.74); Total Protein 6.8 g/dL (6.4-8.2); Triglyceride 652 mg/dL (<150); Vitamin D 25 Total 19 ng/mL (30-100)
[2024-12-29 20:28] LABS: LDL CHOLESTEROL 110 mg/dL (<100)
[2024-12-29 21:01] LABS: FREE T4 0.82 ng/dL (0.76-1.46)
== END 2024-12-29 14:39 | disposition home or self-care (01) ==
LOC: NCHCN 14:38
PROVIDERS: PCP Nurse Practitioner Family; Visit Provider Nurse Practitioner Family
DX: I10 Essential (primary) hypertension (principal); E11.9 Type 2 diabetes mellitus without complications; E78.5 Hyperlipidemia, unspecified; E66.9 Obesity, unspecified; E55.9 Vitamin D deficiency, unspecified
CPT/HCPCS: 80053; 80061; 82306; 83721; 82043; 82570; 83036; 83540; 83550; 83735; 84439; 84443; 85025

== ENCOUNTER 2025-01-30 11:08 | Outpatient (CLI) | payer MEDICAID, SELFPAY ==
[2025-01-30 21:59] LABS: FSH 1.5 mIU/mL (1.4-18.1); LH 1.7 mIU/mL (1.5-9.3); Prolactin 11.5 ng/mL (2.1-17.7)
[2025-02-05 09:34] LABS: Testosterone, Free 5.64 ng/dL (4.26-16.4); Testosterone, Total 172 ng/dL (240-950)
== END 2025-01-30 11:09 | disposition home or self-care (01) ==
LOC: LBO 11:09
PROVIDERS: PCP Nurse Practitioner Family; Visit Provider Internal Medicine Endocrinology, Diabetes & Metabolism
DX: E29.1 Testicular hypofunction (principal)
CPT/HCPCS: 36415; 84402; 84403; 83001; 83002; 84146

== ENCOUNTER 2025-04-19 01:27 | Outpatient (CLI) | payer MEDICAID, SELFPAY ==
--- NOTE | 2025-04-19 | DI.RAD_ITS ---
Exam(s) XR CERVICAL SPINE COMP 4-5V EXAM: XR CERVICAL SPINE COMP 4-5V CLINICAL HISTORY: Cervicalgia M54.2. TECHNIQUE: 2D digital imaging was performed. Seven images were obtained. AP, odontoid, lateral and bilateral oblique images were obtained. COMPARISON: No exams were available for comparison FINDINGS: The odontoid is intact. The lateral masses are well aligned. There is straightening of the normal cervical lordosis. This may be due to muscle spasm or patient positioning. There are anterior osteophytes at multiple levels of the cervical spine. The disc heights are well maintained. No acute fracture or subluxation is present. No significant neural foraminal stenosis is present. The cervical thoracic junction is well maintained. The prevertebral soft tissues are unremarkable. Lung apices are clear. IMPRESSION: Mild degenerative changes seen in the cervical spine. DATA REPOSITORY: RADIATION DOSE DELIVERED:
== END 2025-04-19 01:47 ==
LOC: DI 01:27
PROVIDERS: PCP Nurse Practitioner Family; Visit Provider Nurse Practitioner Family
DX: M50.31 Other cervical disc degeneration, high cervical region (principal)
CPT/HCPCS: 72050

== ENCOUNTER 2025-09-26 10:00 | Outpatient (REF) | payer MEDICAID, SELFPAY | END 2025-09-26 10:01 | disposition home or self-care (01) | LOC: NCHCN 10:00 | DX: I10 Essential (primary) hypertension (principal) | CPT/HCPCS: 82043; 82570 ==